=== PATIENT | female | born 1930 | race Caucasian/White ===

== ENCOUNTER 2016-08-24 07:12 | Observation (INO) | payer OTHER ==
[~2016-08-24] VITALS: Ht 167.6 cm; Wt 49.9 kg
[~2016-08-24 07:12] MED LIST: ACETAMINOPHEN-COD #3; ALBUTEROL0.09 MG/A1 INH; AMITRIPTYLINE H10 M2 PO; AMITRIPTYLINE H10 MG PO; AMOXICILLIN500 M1 PO; AMOXICILLIN500 MG PO; ARMOUR THYROID15 M1 PO; ARMOUR THYROID60 MG PO; ASPIRIN325 M2 PO; Aspirin PO; BISMUTH SUBSALICYLATE PO; CYCLOBENZAPRINE5 M1; CYMBALTA 20 MG20 MG PO; DILTIAZEM 24HR180 M1 PO; EDARBI40 MG PO; FIORICET 50-301 EACH PO; FLEXERIL 5MG TAB5 MG PO; FLORINEF ACETA0.1 MG PO; FLOVENT DISKU100 MCG INH; HYDROCODONE/ACE1 TA1 PO; LIPITOR40 M1 PO; LISINOPRIL2.5 MG PO; MAGNESIUM OXID400 M1 PO; METOCLOPRAMIDE10 MG PO; METOCLOPRAMIDE5 MG PO; MIRALAX17 G1 PO; MOTRIN 600 MG600 MG PO; OMEPRAZOLE20 MG PO; PEPCID 20MG TAB20 MG PO; PREDNISONE10 MG PO; PRILOSEC 20MG C20 MG PO; PROAIR HFA0.09 MG/Ac INH; SENNA S TABLET1 EACH PO; SENOKOT8.6 MG; TORADOL10 MG PO; TRAMADOL HCL50 M1 PO; TRAMADOL50 MG PO; TYLENOL #31 TAB PO; TYLENOL325 M1 PO; VICODIN 5-3001 EACH PO; VICODIN5-300 PO; VITAMIN D5000 I1 PO; VITAMIN D5000 UNIT PO
[2016-08-24] MEDS ORDERED: AMITRIPTYLINE H10 M2 PO (08:00)
[2016-08-24] MEDS ORDERED: SEROQUEL100 M1 PO (08:05)
[2016-08-24] MEDS ORDERED: ASPIRIN EC325 M2 PO (08:07)
[2016-08-24 08:30] LABS: ABSOLUTE BASOPHIL COUNT 0 /CUMM (0.0-0.2); ABSOLUTE EOSINOPHIL COUNT 0.1 /CUMM (0.0-0.7); ABSOLUTE GRANULOCYTE CT 6.9 /CUMM (1.4-6.5); ABSOLUTE MONOCYTE COUNT 0.9 /CUMM (0.10-0.60); BASOPHIL % 0.2 % (0.0-2.0); EOSINOPHIL % 0.8 % (0-5); GRANULOCYTE % 77.8 % (42.2-75.2); HEMATOCRIT 40.7 % (37-47); MEAN CORPUSCULAR VOLUME 85.4 FL (81.0-99.0); MEAN PLATELET VOLUME 7.2 FL (7.4-10.4); PLATELET COUNT 241 /CUMM (130-400); RBC DISTRIBUTION WIDTH 13.1 % (11.5-14.5); RED BLOOD CELL CT 4.77 /CUMM (4.20-5.40); WHITE BLOOD CELL COUNT 8.8 /CUMM (4.8-10.8)
--- NOTE | 2016-08-24 10:05 | CT SCAN REPORT ---
EXAMINATION: CT HEAD WITHOUT CONTRAST CT OF THE MAXILLOFACIAL REGION CLINICAL INFORMATION: Fall. Head strike right zygoma/cheek with confusion. Assess for intracranial hemorrhage or fracture. COMPARISON: CT scan of the head 01/24/2016. TECHNIQUE: Multidetector CT imaging of the head and maxillofacial region was performed without the use of intravenous contrast. Coronal and sagittal reformatted images were generated at the technologist workstation. Images are degraded by patient motion artifact and some areas. DLP: 1192.28 mGy-cm. FINDINGS: CT Head: There is no evidence of acute intracranial hemorrhage or territorial infarction. No abnormal mass-effect or midline shift is seen. Vega to white matter differentiation is well preserved. No extra-axial fluid collections are identified. The ventricles and sulci are commensurately prominent consistent with moderate diffuse volume loss, similar compared to the prior study. There is low attenuation in the periventricular and subcortical white matter, consistent with chronic microvascular ischemic changes. 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 The study redemonstrates the partially calcified mass along the left falx at the vertex, which is unchanged. There are no acute osseous findings. There are degenerative changes of the right greater than left temporomandibular joints. There are no large scalp contusions or hematomas. There is extensive atheromatous calcification of the bilateral cavernous internal carotid arteries. The mastoid air cells are well-aerated. There is mucoperiosteal thickening in the bilateral ethmoid and frontal sinuses and there is a retention cyst in the right maxillary sinus. CT Maxillofacial Region: No fractures are demonstrated. The nasal bones, maxillary zhao, pterygoid plates and zygomatic arches are intact; there are no air-fluid levels in the maxillary sinuses. The orbits, globes, and the lamina papyracea are intact. The orbital apices, optic canals, and retrobulbar fat planes are normal. The mandible is intact. There are degenerative changes of the right greater than left temporomandibular joints. There is no significant soft tissue swelling in the malar regions. The nasal septum is slightly deviated to the right posteriorly and there is a right-sided bony nasal septal spur. There are degenerative changes in the visualized cervical spine. IMPRESSION: 1. There are no acute intracranial bleeds or territorial infarcts. 2. 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 3. There are no fractures in the maxillofacial region. There are right greater than left degenerative changes of the temporomandibular joints.
--- NOTE | 2016-08-24 10:36 | ED MVC/FALL/TRAUMA COMPLAINT ---
History of Present Illness General Chief Complaint: Fall Stated Complaint: FALL/LOW L SIDE BACK Source: patient, family, old records, EMS Exam Limitations: dementia, poor historian Vital Signs & Intake/Output Vital Signs & Intake/Output Vital Signs Date Time Temp Pulse Resp B/P Pulse O2 O2 Flow FiO2 Ox Delivery Rate 08/24 1405 97 Room Air 08/24 1404 97.1 108 18 159/78 97 Room Air 08/24 1005 97.1 86 18 172/77 99 Room Air 08/24 0732 97 Room Air 08/24 0724 97.4 76 18 180/98 98 Room Air Allergies Coded Allergies: duloxetine (From CYMBALTA) (Severe, RASH 10/15/15) Benzodiazepines (UNKNOWN PER PT 10/15/15) clarithromycin (From BIAXIN) (UNKNOWN PER PT 10/15/15) lisinopril (UNKNOWN PER PT 10/15/15) meperidine (From DEMEROL) (UNKNOWN PER PT 10/15/15) verapamil (UNKNOWN PER PT 10/15/15) Uncoded Allergies: OPIOD (Severe, N/V, DIZZINESS 10/15/15) "SEDATIVES" (UNKNOWN PER PT 10/15/15) Reconcile Medications Acetaminophen (Tylenol) 325 MG TABLET 1 TAB PO Q6H PRN H/A OR TEMP 100.5> ( Reported) Amitriptyline HCl 10 MG TABLET 1 TAB PO QHS MIGRAINE (Reported) Amitriptyline HCl 10 MG TABLET 2 TAB PO QPM HEADACHE (Reported) Aspirin (Aspirin*) 325 MG TABLET 1 TAB PO DAILY BLOOD-STROKE PREVENTION ( Reported) Aspirin (Ecotrin*) 325 MG TABLET.DR 1 TAB PO DAILY STROKE (Reported) Atorvastatin Calcium (Lipitor) 40 MG TABLET 1 TAB PO QHS CHOLESTEROL ( Reported) Butalb/Acetaminophen/Caffeine (Fioricet 50-300-40 MG Capsule) 1 EACH CAPSULE 1 TAB PO Q6P PRN headache Cholecalciferol (Vitamin D3) (Vitamin D) 5,000 UNIT TABLET 1 TAB PO QHS SUPPLEMENT (Reported) Diltiazem HCl (Diltiazem 24HR Cd) 180 MG CAP.ER.24H 1 CAP PO DAILY HEART/BP ( Reported) Fluticasone Propionate (Flovent Diskus) 100 MCG BLST.W.DEV 1 PUF INH BID COPD (Reported) Hydrocodone/Acetaminophen (Vicodin 5-300 MG Tablet) 1 EACH TABLET 1 TAB PO QHS CHRONIC PAIN (Reported) Magnesium Oxide 400 MG TABLET 1 TAB PO QHS SUPPLEMENT (Reported) Polyethylene Glycol 3350 (Miralax) 17 GM POWD.PACK 1 PAC PO DAILY PRN GI ( Reported) dissolve in water Quetiapine Fumarate (Seroquel) 100 MG TABLET 1 TAB PO QPM HALLUCINATIONS ( Reported) Sennosides/Docusate Sodium (Senna S Tablet) 1 EACH TABLET 2 TAB PO QHS GI ( Reported) Thyroid ([place] Thyroid) 15 MG TABLET 1 TAB PO DAILY THYROID (Reported) Tramadol HCl 50 MG TABLET 1 TAB PO QAM CHRONIC PAIN (Reported) Triage Note: 85 YEAR OLD FEMALE TO ER VIA AMBULANCE FROM [facility],PER EMS THEY WERE CALLED THERE DUE TO PT FELL ON THE FLOOR,PER DAUGHTER PT IS A RESIDENT OF THE UNIT FOR DEMENTIA PATIENTS, PT STATES THAT SHE WENT TO GET OUT OF BED AND THE NEXT THING SHE KNEW SHE WAS ON THE FLOOR, PT COMPLAINS OF L SIDE LOW BACK AND HAS DIFFICULT TIME MOVING DUE TO 10/10 PAIN. PT ALSO NOTED WITH RUG BURN TO R SIDE OF FACE.PT STATES THAT SHE HAD A HEADACHE LAST PM AND THE NURSE GAVE HER AN ASPIRIN, PT NOTED WITH FULL ROM WITH ALL EXTREMITIES BUT UNABLE TO TURN WITH OUT PAIN. DENIES HIP PAIN ON LIGHT PALPATION BILATERALLY, SPEECH CLEAR AND NO FACIAL DROOP NOTED. PT INCONTINENT OF URINE, INCONTINENT CARE PROVIDED Triage Nurses Notes Reviewed? yes Onset: Just prior to arrival Duration: hour(s):, constant, continues in ED Timing: recent history Severity: moderate Injuries/Fall Location: face, back, pelvis Method of Injury: direct blow, fall Loss of Consciousness: unsure Modifying Factors: Improves With: rest. Worsens With: movement, palpation. Associated Symptoms: confusion, trouble walking LMP (ages 10-50): post menopausal : No Patient currently breastfeeds: No HPI: Prior to admission patient was found in the floor by staff. The events are unclear recalls getting out of bed falling to the ground striking her face likely loss consciousness. She complains of left low back pain sharp severe limited range of motion. She denies fever chills chest pain cough shortness of breath headache dysuria rash bleeding abdominal pain. Past History Travel History Traveled to [place] past 21 day No Medical History Any Pertinent Medical History? 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 Relation not specified for: FH: bladder cancer FH: breast cancer Hx Contributory? No Review of Systems Review of Systems Constitutional: Reports: no symptoms. Eyes: Reports: no symptoms. Ears, Nose, Throat, Mouth: Reports: no symptoms. Respiratory: Reports: no symptoms. Cardiovascular: Reports: no symptoms. Gastrointestinal/Abdominal: Reports: no symptoms. Genitourinary: Reports: no symptoms. Musculoskeletal: Reports: see HPI, back pain, joint pain. Skin: Reports: see HPI. Neurological/Psychological: Reports: see HPI, cognitive dysfunction. All Other Systems: Reviewed and Negative Physical Exam Physical Exam General Appearance: well developed/nourished, alert, awake, anxious, moderate distress Head: evidence of injury (right cheek/zygoma abrasion), contusions, tenderness Eyes: Bilateral: normal appearance, PERRL, EOMI, normal inspection. Ears, Nose, Throat, Mouth: hearing grossly normal, moist mucous membrane Neck: normal inspection, supple, full range of motion, normal alignment, no midline tenderness Respiratory: normal breath sounds, chest non-tender, no respiratory distress, quiet respiration, lungs clear Cardiovascular: regular rate/rhythm, normal peripheral pulses, norml femoral pulses equa Peripheral Pulses: 4+ carotid (R), 4+ carotid (L) Gastrointestinal: normal bowel sounds, soft, non-tender, no organomegaly Back: normal inspection, decreased range of motion Extremities: bony-point tenderness (L pelvis), no ligament instability Neurologic/Psych: awake, alert, normal mood/affect, 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 No Severe Sepsis Present: No Septic Shock Present: No Progress Differential Diagnosis: C/T/L spine injury, ext injury, pelvis injury Plan of Care: Orders Procedure Date/time Status Regular Diet 08/24 L Active PT Evaluate & Treat 08/24 1324 Active Mello, Insertion/Removal/Asses 08/24 1324 Active CULTURE,URINE 08/24 1324 Active TROPONIN LEVEL 08/24 804 Complete COMPREHENSIVE METABOLIC PANEL 08/24 804 Complete CREATINE PHOSPHOKINASE 08/24 804 Complete CBC WITHOUT DIFFERENTIAL 08/24 804 Complete EKG 08/24 804 Active Laboratory Tests 08/24/16 0821: Anion Gap 9, Estimated GFR > 60, BUN/Creatinine Ratio 28.0 H, Glucose 96, Calcium 9.4, Total Bilirubin 0.6, AST 27, ALT 44, Alkaline Phosphatase 145 H, Creatine Kinase 68, Troponin I < 0.01, Total Protein 7.4, Albumin 3.9, Globulin 3.5, Albumin/Globulin Ratio 1.1, CBC w Diff NO MAN DIFF REQ, RBC 4.77, MCV 85.4, MCH 29.0, RDW 13.1, MPV 7.2 L, Gran % 77.8 H, Lymphocytes % 11.1 L, Monocytes % 10.1 H, Eosinophils % 0.8, Basophils % 0.2, Absolute Granulocytes 6.9 H, Absolute Lymphocytes 1.0 L, Absolute Monocytes 0.9 H, Absolute Eosinophils 0.1 , Absolute Basophils 0, PUBS MCHC 34.0 Microbiology 08/24 1447 URINE ROUT: Urine Culture - RECD Diagnostic Imaging: Viewed by Me: CT Scan. Discussed w/RAD: CT Scan. Radiology Impression: 1. Inferior endplate fracture of L3 with approximately 25 % loss of height centrally. 2. Mildly displaced fractures of the left superior and inferior pubic rami. 3. Essentially nondisplaced fracture of the upper left sacrum. 4. No additional acute traumatic findings identified in the chest, abdomen, or pelvis. 5. Interval decrease in tiny tree-in-bud type right lung nodules compared to 07/30/2015. Comments: Unable to ambulate or get out of bed due to back and hip pain Departure Departure Time of Disposition: 1544 Disposition: STILL A PATIENT Condition: Stable Clinical Impression Primary Impression: Closed fracture of pubic ramus Qualifiers: Encounter type: initial encounter Laterality: left Qualified Code: S32.592A - Other specified fracture of left pubis, initial encounter for closed fracture Secondary Impressions: Fracture of sacrum Qualifiers: Encounter type: initial encounter Zone of sacrum fracture: unspecified portion of sacrum Fracture type: closed Qualified Code: S32.10XA - Unspecified fracture of sacrum, initial encounter for closed fracture Lumbar compression fracture Qualifiers: Encounter type: initial encounter Fracture type: closed Qualified Code: S32.000A - Wedge compression fracture of unspecified lumbar vertebra, initial encounter for closed fracture Referrals: PAPA BHAGAT,KELI Anand (PCP/Family) Departure Forms: Customer Survey General Discharge Information Observation Note Spoke With: ABE BHAGAT,AIDA Physician Advisor Notified: INES BHAGAT,ELLA Rivera Place Patient In: Non-ED OBS Care Area Rationale for Observation: My rational for observation is as follows ensure safety physical therapy IV analgesia increased ambulation.
--- NOTE | 2016-08-24 13:01 | CT SCAN REPORT ---
EXAM: NONCONTRAST CT OF THE CHEST; NONCONTRAST CT OF THE ABDOMEN AND PELVIS, CT 3-D RECONSTRUCTION POST PROCEDURE INDICATION: Fall, back pain, abdominal injury COMPARISON: Multiple priors, most recent chest CT 07/30/2015 TECHNIQUE: No IV contrast was utilized. Multidetector helical imaging was performed through the chest, abdomen, and pelvis. Coronal and sagittal reformatted images were created at the technologist workstation. Additional dedicated 3-D reformatted volume rendered images of the osseous structures of the chest, abdomen, and pelvis were created. DLP: 354.30 mGy-cm FINDINGS: Chest: Biapical scarring is noted. No additional region of consolidation is seen. There has been interval decrease in the tiny tree-in-bud type nodular opacities in the right lower lobe compared to 07/30/2015. Several scattered tiny residual nodules are noted, suspicious for endobronchial location. No pneumothorax or pleural effusions. The visualized thyroid gland is unremarkable. There are subcentimeter mediastinal lymph nodes within the range of normal variation. Cardiac size is within normal limits; no pericardial effusion. Coronary artery calcifications are present. There is atherosclerotic calcification along the aorta. No axillary lymphadenopathy is present. Abdomen/Pelvis: The liver is homogeneous in attenuation without intrahepatic biliary ductal dilatation. The gallbladder is unremarkable. The unenhanced spleen, pancreas, and adrenal glands are within normal limits. There is fullness of extrarenal pelvises bilaterally. No renal or ureteral calculi are present. The urinary bladder is distended and otherwise appears unremarkable. Patient appears status post hysterectomy. The small and large bowel are unremarkable without evidence of obstruction or pericolonic inflammatory change. No free fluid or free air is present. There is extensive atherosclerotic calcification. No retroperitoneal or pelvic lymphadenopathy is seen. Osseous structures: There is an essentially nondisplaced fracture of the upper left sacrum. There are mildly displaced fractures of the left superior and inferior pubic rami with mild adjacent hematoma. There is a fracture of the inferior endplate of L3 resulting in approximately 25% loss of vertebral body height centrally. There is anatomic alignment of the thoracolumbar spine. Remaining vertebral body heights are maintained. Multilevel degenerative changes are noted. IMPRESSION: 1. Inferior endplate fracture of L3 with approximately 25% loss of height centrally. 2. Mildly displaced fractures of the left superior and inferior pubic rami. 3. Essentially nondisplaced fracture of the upper left sacrum. 4. No additional acute traumatic findings identified in the chest, abdomen, or pelvis. 5. Interval decrease in tiny tree-in-bud type right lung nodules compared to 07/30/2015.
[2016-08-24 18:00] VITALS: BP 160/82
[2016-08-24] MEDS ORDERED: QUETIAPINE FUMA50 M1 PO (18:50)
--- NOTE | 2016-08-24 18:50 | History & Physical ---
JAJA BHAGAT,[facility] 08/24/16 1320: General Information and HPI MD Statement: I have seen and personally examined HENNA GONZALEZ and documented this H&P. The patient is a 85 year old F who presented with a patient stated chief complaint of unwitbessed fall. Source of Information: patient, family Exam Limitations: no limitations History of Present Illness: This 85-year-old lady with a past medical history of CVA (2016) with no residual deficits, hypertension, SVT, anxiety, hypothyroidism, hemangioma the brain, fibromyalgia, is BIBA for evaluation after she was found on the floor by the nursing staff. of note, patient lives at [facility]. She is not able to give the exact time of her fall, but she reports that it was still dark when she woke up from sleep and attempted to get of bed in order to go to the bathroom. She reports falling down while attempting to get out of bed and fell on her face. She was found on the floor at around 7 AM by the nursing staff. Patient reports that she never lost consciousness and throughout the episode she was thinking to herself and realizing that she'll have to wait till help comes and she decided not to screem for help. She denies any loss of consciousness, palpitation or any prodromal syndrome, she denies any seizure- like activities, vertigo, tinnitus, headache, numbness, any neurological deficit , or confusion. She also denies any recent infection, fever, chills, nausea, vomiting, chest pain, palpitation, shortness of breath, abdominal pain or dysuria. Of note, patient at her normal state of health free ambulates and is independent with her ADLs. Allergies/Medications Allergies: Coded Allergies: duloxetine (From CYMBALTA) (Severe, RASH 10/15/15) Benzodiazepines (UNKNOWN PER PT 10/15/15) clarithromycin (From BIAXIN) (UNKNOWN PER PT 10/15/15) lisinopril (UNKNOWN PER PT 10/15/15) meperidine (From DEMEROL) (UNKNOWN PER PT 10/15/15) verapamil (UNKNOWN PER PT 10/15/15) Uncoded Allergies: OPIOD (Severe, N/V, DIZZINESS 10/15/15) "SEDATIVES" (UNKNOWN PER PT 10/15/15) Past History Travel History Traveled to [place] past 21 day No Medical History Blood Transfusion Hx: Yes Neurological: vertigo, ATYPICAL MIGRAINE HEADACH MENINGIOMA LYME DISEASE STROKE 2015 EENT: NONE Cardiovascular: AFIB, hypertension, SVT Respiratory: COPD Gastrointestinal: H PYLORI Hepatic: NONE Renal: NONE Musculoskeletal: fibromyalgia, fracture, osteoarthritis, osteoporosis, SCOLIOSIS FX KNEE Psychiatric: anxiety Endocrine: hypothyroidism Blood Disorders: NONE Cancer(s): HEMANGIOMA OF THE 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 Relation not specified for: FH: bladder cancer FH: breast cancer Psychosocial History Who Do You Live With? grand tammi Services at Home: None Smoking Status: Never Smoked ETOH Use: denies use Illicit Drug Use: denies illicit drug use Functional Ability ADLs Independent: dressing, eating, toileting, bathing. Ambulation: independent IADLs Independent: shopping, housework, finances, food prep, telephone, transportation , medication admin. Review of Systems Review of Systems Constitutional: Denies: diaphoresis, fever, malaise. EENTM: Denies: double vision, visual changes. Cardiovascular: Denies: chest pain, edema, orthopena. Respiratory: Denies: cough, hemoptysis, orthopnea. GI: Denies: diarrhea, distention, bowel incontinence, melena, bloody stool. Genitourinary: Denies: frequency, hematuria. Musculoskeletal: Reports: muscle pain. Skin: Reports: lesions. Neurological/Psychological: Denies: ataxia, confusion, depressed, paresthesia, pre-existing deficit. Hematologic/Endocrine: Reports: bruising. Immunologic/Allergic: Reports: no symptoms. All Other Systems: Reviewed and Negative Exam & Diagnostic Data Physical Exam General Appearance Alert, Oriented X3, Cooperative Skin bruises on both sides of faces HEENT PERRLA, EOMI, Mucous Membr. moist/pink Neck Supple, No JVD Lymphatic Cervical nl Cardiovascular Regular Rate, Normal S1, Normal S2 Lungs Clear to Auscultation, Normal Air Movement Abdomen Normal Bowel Sounds, Soft, No Tenderness Neurological Normal Speech, Normal Tone, Sensation Intact, Cranial Nerves 3-12 NL, Reflexes 2+ Extremities No Clubbing, No Cyanosis, decreased range of motion,due to pain Vascular Pulses Symmetrical Last 24 Hrs of Labs/Edward: Laboratory Tests 08/24/16 0821: Anion Gap 9, Estimated GFR > 60, BUN/Creatinine Ratio 28.0 H, Glucose 96, Calcium 9.4, Magnesium 2.0, Total Bilirubin 0.6, AST 27, ALT 44, Alkaline Phosphatase 145 H, Creatine Kinase 68, Troponin I < 0.01, Total Protein 7.4, Albumin 3.9, Globulin 3.5, Albumin/Globulin Ratio 1.1, CBC w Diff NO MAN DIFF REQ, RBC 4.77, MCV 85.4, MCH 29.0, RDW 13.1, MPV 7.2 L, Gran % 77.8 H, Lymphocytes % 11.1 L, Monocytes % 10.1 H, Eosinophils % 0.8, Basophils % 0.2, Absolute Granulocytes 6.9 H, Absolute Lymphocytes 1.0 L, Absolute Monocytes 0.9 H, Absolute Eosinophils 0.1, Absolute Basophils 0, PUBS MCHC 34.0 Microbiology 08/24 1447 URINE ROUT: Urine Culture - RECD Diagnostic Data Other Results EXAM TYPE: CAT - CT 3D RECON REQ POST PROC; CT ABD & PELVIS W/O IV CONTRAS; CT CHEST WO IV CONTRAST EXAM: NONCONTRAST CT OF THE CHEST; NONCONTRAST CT OF THE ABDOMEN AND PELVIS, CT 3-D RECONSTRUCTION POST PROCEDURE INDICATION: Fall, back pain, abdominal injury COMPARISON: Multiple priors, most recent chest CT 07/30/2015 TECHNIQUE: No IV contrast was utilized. Multidetector helical imaging was performed through the chest, abdomen, and pelvis. Coronal and sagittal reformatted images were created at the technologist workstation. Additional dedicated 3-D reformatted volume rendered images of the osseous structures of the chest, abdomen, and pelvis were created. DLP: 354.30 mGy-cm FINDINGS: Chest: Biapical scarring is noted. No additional region of consolidation is seen. There has been interval decrease in the tiny tree-in-bud type nodular opacities in the right lower lobe compared to 07/30/2015. Several scattered tiny residual nodules are noted, suspicious for endobronchial location. No pneumothorax or pleural effusions. The visualized thyroid gland is unremarkable. There are subcentimeter mediastinal lymph nodes within the range of normal variation. Cardiac size is within normal limits; no pericardial effusion. Coronary artery calcifications are present. There is atherosclerotic calcification along the aorta. No axillary lymphadenopathy is present. Abdomen/Pelvis: The liver is homogeneous in attenuation without intrahepatic biliary ductal dilatation. The gallbladder is unremarkable. The unenhanced spleen, pancreas, and adrenal glands are within normal limits. There is fullness of extrarenal pelvises bilaterally. No renal or ureteral calculi are present. The urinary bladder is distended and otherwise appears unremarkable. Patient appears status post hysterectomy. The small and large bowel are unremarkable without evidence of obstruction or pericolonic inflammatory change. No free fluid or free air is present. There is extensive atherosclerotic calcification. No retroperitoneal or pelvic lymphadenopathy is seen. Osseous structures: There is an essentially nondisplaced fracture of the upper left sacrum. There are mildly displaced fractures of the left superior and inferior pubic rami with mild adjacent hematoma. There is a fracture of the inferior endplate of L3 resulting in approximately 25% loss of vertebral body height centrally. There is anatomic alignment of the thoracolumbar spine. Remaining vertebral body heights are maintained. Multilevel degenerative changes are noted. IMPRESSION: 1. Inferior endplate fracture of L3 with approximately 25% loss of height centrally. 2. Mildly displaced fractures of the left superior and inferior pubic rami. 3. Essentially nondisplaced fracture of the upper left sacrum. 4. No additional acute traumatic findings identified in the chest, abdomen, or pelvis. 5. Interval decrease in tiny tree-in-bud type right lung nodules compared to 07/30/2015. DICTATED BY: NKECHI VELAZQUEZ MD Assessment/Plan Assessment: This is a 85-year-old lady with a significant history of CVA, hypertension, SVT fibromyalgia, hypertension for evaluation of a unwitnessed fall. Based on the patients account she did not experience any syncope. CT findings are unremarkable for any acute intracranial pathology. Mildly displaced fractures of the left superior and inferior pubic rami is evident on pelvis CT. Assessment and plan #Unwitnessed fall Most likely mechanical fall which is supported by the fact that patient tried to ambulate from her bed to the bathroom while he was still dark and she probably was not able to see the floor. It is less likely to have been of cardiac etiology, as patient denies any syncope or presyncope, and did not have any palpitation or other symptoms that are related with cardiac etiology. CT of the head is unremarkable for any intracranial pathology and patient does not endorse any neurological deficit including speech impairment therefore stroke is less likely. She also does not endorse any seizure-like activities, postictal confusion, or bladder or urinary incontinence, therefore seizures as the cause of her fall is also less likely. Plan Admit to general med Will obtain CPK levels Fall precautions #Pelvic fracture Patient has radiological finding of mildly dispensed fracture of the left superior and inferior public rami, and nondisplaced fractures of the upper left sacrum. This findings are consistent with low energy stable fracture. She history of osteoporosis predisposed her to increase likelihood of fractures especially to falls. Surgical intervention is not warranted in this type of fractures. Plan Medical management of symptomatic relief with pain medication (acetaminophen for mild pain and tramadol for moderate pain) Will obtain PT eval tomorrow #DVT Due to the fracture patient will be at increased risk for DVT due to decrease mobility. Lovenox for DVT prophylaxis As Ranked By This Provider Problem List: 1. Closed fracture of pubic ramus Qualifiers Encounter type: initial encounter Laterality: left Qualified Code: S32.592A - Other specified fracture of left pubis, initial encounter for closed fracture 2. Fall at home Core Measures/Miscellaneous Severe Sepsis Severe Sepsis Present: No Septic Shock Septic Shock Present: No AIDA FISH MD 08/24/16 2006: General Information and HPI Allergies/Medications Home Med list Acetaminophen (Tylenol) 325 MG TABLET 1 TAB PO Q6H PRN H/A OR TEMP 100.5> ( Reported) Amitriptyline HCl 10 MG TABLET 2 TAB PO QPM HEADACHE (Reported) Aspirin (Ecotrin*) 325 MG TABLET.DR 1 TAB PO DAILY STROKE (Reported) Cholecalciferol (Vitamin D3) (Vitamin D) 5,000 UNIT TABLET 1 TAB PO QHS SUPPLEMENT (Reported) Diltiazem HCl (Diltiazem 24HR Cd) 180 MG CAP.ER.24H 1 CAP PO DAILY HEART/BP ( Reported) Fluticasone Propionate (Flovent Diskus) 100 MCG BLST.W.DEV 1 PUF INH BID COPD (Reported) Magnesium Oxide 400 MG TABLET 1 TAB PO QHS SUPPLEMENT (Reported) Polyethylene Glycol 3350 (Miralax) 17 GM POWD.PACK 1 PAC PO DAILY PRN GI ( Reported) dissolve in water Quetiapine Fumarate 50 MG TABLET 1 TAB PO BID DEPRESSION (Reported) Sennosides/Docusate Sodium (Senna S Tablet) 1 EACH TABLET 2 TAB PO QHS GI ( Reported) Thyroid ([employer] Thyroid) 15 MG TABLET 1 TAB PO DAILY THYROID (Reported) Tramadol HCl 50 MG TABLET 1 TAB PO QAM CHRONIC PAIN (Reported) Attending MD Review Statement Attending Statement Attending MD Statement: examined this patient, discuss w/resident/PA/OFFENSIVE COORDINATOR, agreed w/resident/PA/OFFENSIVE COORDINATOR, reviewed EMR data (avail) Attending Assessment/Plan: 85F PMH HTN, SVT, CVA with no residual, dementia sent from SNF after falling out of bed and complaining of hip and back pain. Patient has no complaints but unable to give proper history. Fall was unwitnessed, but reported no loss of consciousness. Imaging shows multiple fractures including pubic rami, sacrum, and L3. No neurological dysfunction. Patient reports pain in the area. Plan - Admit to general medicine - Orthopedic consult - Pain control with Tylenol, Tramadol, Morphine - Repeat neuro exam in the morning - PT eval - Continue home medications, avoid sedating medications - DVT PPx ISREAL BARBA 08/24/162026: Exam & Diagnostic Data Last 24 Hrs of Vital Signs/I&O Vital Signs Date Time Temp Pulse Resp B/P Pulse O2 O2 Flow FiO2 Ox Delivery Rate 08/25 0838 98.6 91 18 148/82 95 08/25 0032 98.4 106 20 142/58 94 Room Air 08/24 1944 Room Air 08/24 1800 98.6 92 20 160/82 96 Room Air 08/24 1606 98.2 110 20 169/90 98 Room Air 08/24 1405 97 Room Air 08/24 1404 97.1 108 18 159/78 97 Room Air Intake & Output 08/25 1600 08 0800 02 0000 Intake Total 1090 240 Output Total 225 100 Balance 865 140 Intake, IV 850 Intake, Oral 240 240 Number 0 Bowel Movements Output, Urine 225 100 Patient 110 lb Weight Core Measures/Miscellaneous Acute Coronary Syndrome ACS Diagnosis: No Cerebrovascular Accident CVA/TIA Diagnosis: No Congestive Heart Failure CHF Diagnosis: No Venous Thromboembolism VTE Risk Factors: Acute medical illness, Age > 40 VTE Prophylaxis Ordered Inpt: Pharm- Lovenox No Mech VTE prophylaxis d/t: No contraindications No VTE Pharm Prophylaxis d/t: No contraindications VTE Diagnosis: No VTE Type: NONE VTE Confirmed by (Test): NONE Miscellaneous Documentation Attending Case Discussed With: DR. FISH Primary Care Physician: KELI ELAM MD Patient sees these Specialists Dr. Soler Level of Patient Care: General Medicine Resident Review Statement Resident Statement: discussed with purchasing intern Other Findings: HPI as above Assessment and plan She is 85-year-old woman with past medical history of A. fib not on any anticoagulation, hypertension, multinodular goiter, hypothyroidism, SVTs, diastolic CHF, CVA, migraine, osteoporosis, Lyme disease, Alzheimer's disease, expressive aphasia, chronic back pain and fibromyalgia BIBA from [facility] memory care unit after she was found on the floor by staff. Problem list 1. Unwitnessed fall resulting in inferior endplate fracture of L3 and mildly displaced fracture of left superior and inferior pubic rami, nondisplaced fracture of upper left sacrum. She does not recall any preceding symptoms before fall. Plan - Admit patient to general medicine floor - Monitor vitals every shift - Pain management with Tylenol and tramadol which are her home medications - We will continue other home medications - PT evaluation and treatment - Subcutaneous Lovenox for DVT prophylaxis - DNR/DNI
--- NOTE | 2016-08-24 20:09 | Admission Certification ---
Admission Certification Certification Statement - As attending physician, I certify that at the time of - admission, based on clinical presentation, severity of - symptoms, need for further diagnostic testing and - therapeutic interventions, and risk of adverse outcomes - without in-hospital treatment, in my clinical assessment, - this patient requires an acute hospital stay for a minimum - of two nights or longer. I have also considered psychsocial - factors such as support system, advanced age, financial - issues, cognitive issues, and failed out-patient treatments, - past re-admission history, safety of patient, and lack of - compliance as applicable. Specific rationale supporting this admission is: Fall with pelvis and sacral fracture
[2016-08-25 00:32] VITALS: BP 142/58
[2016-08-25 08:10] LABS: ABSOLUTE BASOPHIL COUNT 0 /CUMM (0.0-0.2); ABSOLUTE EOSINOPHIL COUNT 0.2 /CUMM (0.0-0.7); ABSOLUTE GRANULOCYTE CT 5.4 /CUMM (1.4-6.5); ABSOLUTE MONOCYTE COUNT 1.1 /CUMM (0.10-0.60); BASOPHIL % 0.4 % (0.0-2.0); EOSINOPHIL % 2.1 % (0-5); GRANULOCYTE % 70.2 % (42.2-75.2); HEMATOCRIT 37.2 % (37-47); MEAN CORPUSCULAR HGB 29.2 PG (27.0-31.0); MEAN CORPUSCULAR VOLUME 85.9 FL (81.0-99.0); MEAN PLATELET VOLUME 7.6 FL (7.4-10.4); PLATELET COUNT 204 /CUMM (130-400); RBC DISTRIBUTION WIDTH 13.5 % (11.5-14.5); RED BLOOD CELL CT 4.33 /CUMM (4.20-5.40); WHITE BLOOD CELL COUNT 7.8 /CUMM (4.8-10.8)
[2016-08-25 08:38] VITALS: BP 148/82
--- NOTE | 2016-08-25 11:40 | Discharge Summary ---
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 She reported falling down while attempting to get out of bed and fell on her face. She was found on the floor at around 7 AM by the nursing staff. Patient reports that she did not what happened. She denied any loss of consciousness, palpitation or any prodromal syndrome, she denied any seizure-like activities, vertigo, tinnitus, headache, numbness, any neurological deficit, or confusion. She also denied any recent infection, fever, chills, nausea, vomiting, chest pain, palpitation, shortness of breath, abdominal pain or dysuria. Vital Signs Date Time Temp Pulse Resp B/P Pulse O2 O2 Flow FiO2 Ox Delivery Rate 08/25 0838 98.6 91 18 148/82 95 08/25 0032 98.4 106 20 142/58 94 Room Air 08/24 1944 Room Air 08/24 1800 98.6 92 20 160/82 96 Room Air 08/24 1606 98.2 110 20 169/90 98 Room Air 08/24 1405 97 Room Air 08/24 1404 97.1 108 18 159/78 97 Room Air Physical Exam General Appearance Alert, Oriented X3, Cooperative Skin bruises on both sides of faces HEENT PERRLA, EOMI, Mucous Membr. moist/pink Neck Supple, No JVD Lymphatic Cervical nl Cardiovascular Regular Rate, Normal S1, Normal S2 Lungs Clear to Auscultation, Normal Air Movement Abdomen Normal Bowel Sounds, Soft, No Tenderness Neurological Normal Speech, Normal Tone, Sensation Intact, Cranial Nerves 3-12 NL, Reflexes 2+ Extremities No Clubbing, No Cyanosis, decreased range of motion,due to pain Vascular Pulses Symmetrical Last 24 Hrs of Labs/Edward: Laboratory Tests 08/24/16 0821: Anion Gap 9, Estimated GFR > 60, BUN/Creatinine Ratio 28.0 H, Glucose 96, Calcium 9.4, Magnesium 2.0, Total Bilirubin 0.6, AST 27, ALT 44, Alkaline Phosphatase 145 H, Creatine Kinase 68, Troponin I < 0.01, Total Protein 7.4, Albumin 3.9, Globulin 3.5, Albumin/Globulin Ratio 1.1, CBC w Diff NO MAN DIFF REQ, RBC 4.77, MCV 85.4, MCH 29.0, RDW 13.1, MPV 7.2 L, Gran % 77.8 H, Lymphocytes % 11.1 L, Monocytes % 10.1 H, Eosinophils % 0.8, Basophils % 0.2, Absolute Granulocytes 6.9 H, Absolute Lymphocytes 1.0 L, Absolute Monocytes 0.9 H, Absolute Eosinophils 0.1, Absolute Basophils 0, PUBS MCHC 34.0 Microbiology 08/24 1447 URINE ROUT: Urine Culture - RECD Diagnostic Data Other Results EXAM TYPE: CAT - CT 3D RECON REQ POST PROC; CT ABD & PELVIS W/O IV CONTRAS; CT CHEST WO IV CONTRAST EXAM: NONCONTRAST CT OF THE CHEST; NONCONTRAST CT OF THE ABDOMEN AND PELVIS, CT 3-D RECONSTRUCTION POST PROCEDURE INDICATION: Fall, back pain, abdominal injury COMPARISON: Multiple priors, most recent chest CT 07/30/2015 TECHNIQUE: No IV contrast was utilized. Multidetector helical imaging was performed through the chest, abdomen, and pelvis. Coronal and sagittal reformatted images were created at the technologist workstation. Additional dedicated 3-D reformatted volume rendered images of the osseous structures of the chest, abdomen, and pelvis were created. DLP: 354.30 mGy-cm FINDINGS: Chest: Biapical scarring is noted. No additional region of consolidation is seen. There has been interval decrease in the tiny tree-in-bud type nodular opacities in the right lower lobe compared to 07/30/2015. Several scattered tiny residual nodules are noted, suspicious for endobronchial location. No pneumothorax or pleural effusions. The visualized thyroid gland is unremarkable. There are subcentimeter mediastinal lymph nodes within the range of normal variation. Cardiac size is within normal limits; no pericardial effusion. Coronary artery calcifications are present. There is atherosclerotic calcification along the aorta. No axillary lymphadenopathy is present. Abdomen/Pelvis: The liver is homogeneous in attenuation without intrahepatic biliary ductal dilatation. The gallbladder is unremarkable. The unenhanced spleen, pancreas, and adrenal glands are within normal limits. There is fullness of extrarenal pelvises bilaterally. No renal or ureteral calculi are present. The urinary bladder is distended and otherwise appears unremarkable. Patient appears status post hysterectomy. The small and large bowel are unremarkable without evidence of obstruction or pericolonic inflammatory change. No free fluid or free air is present. There is extensive atherosclerotic calcification. No retroperitoneal or pelvic lymphadenopathy is seen. Osseous structures: There is an essentially nondisplaced fracture of the upper left sacrum. There are mildly displaced fractures of the left superior and inferior pubic rami with mild adjacent hematoma. There is a fracture of the inferior endplate of L3 resulting in approximately 25% loss of vertebral body height centrally. There is anatomic alignment of the thoracolumbar spine. Remaining vertebral body heights are maintained. Multilevel degenerative changes are noted. IMPRESSION: 1. Inferior endplate fracture of L3 with approximately 25% loss of height centrally. 2. Mildly displaced fractures of the left superior and inferior pubic rami. 3. Essentially nondisplaced fracture of the upper left sacrum. 4. No additional acute traumatic findings identified in the chest, abdomen, or pelvis. 5. Interval decrease in tiny tree-in-bud type right lung nodules compared to 07/30/2015. DICTATED BY: NKECHI VELAZQUEZ MD she was admitted to [facility] and treated for these medical condtions: Assessment and plan #Unwitnessed fall Most likely mechanical fall. CT of the head is unremarkable for any intracranial pathology.Echocardgioram showed moderately EF with elevated RV pressure. VQ scan recommended per pulmonology, showed low probability of PE . EKG did not show any major arrthymia. Vital signs were stable. Patient was medically stable to discharge to [facility]. She should follow-up with pulmonology within 2 weeks after discharge. #Pelvic fracture Patient has radiological finding of mildly dispensed fracture of the left superior and inferior public rami, and nondisplaced fractures of the upper left sacrum. Orthopedic consultations recommended conservative management. #History of SVT We continued Cardizem. No major events are observed #hx of hypothyroidism we continued levothyroxine. No major events were observed. Allergies: Coded Allergies: duloxetine (From CYMBALTA) (Severe, RASH 10/15/15) Benzodiazepines (UNKNOWN PER PT 10/15/15) clarithromycin (From BIAXIN) (UNKNOWN PER PT 10/15/15) lisinopril (UNKNOWN PER PT 10/15/15) meperidine (From DEMEROL) (UNKNOWN PER PT 10/15/15) verapamil (UNKNOWN PER PT 10/15/15) Uncoded Allergies: OPIOD (Severe, N/V, DIZZINESS 10/15/15) "SEDATIVES" (UNKNOWN PER PT 10/15/15) Pertinent Lab Results: PATIENT: MARIELA MOTA PRESENT AGE: 89 PATIENT ACCOUNT NO: [id number] : [birth year] LOCATION: ER ORDERING PHYSICIAN: RAFAT WINTERS MD SERVICE DATE: 08/24/16 EXAM TYPE: RAD - XRY-HIP 2-3 VIEWS, RIGHT EXAMINATION: XR HIP, RIGHT CLINICAL INFORMATION: Fall with right hip pain. Presumptive diagnosis: Fracture. COMPARISON: CT of the abdomen and pelvis 11/01/2015. TECHNIQUE: AP view of the pelvis is obtained. AP and frog lateral views of the right hip are obtained. FINDINGS: There is some irregularity of the right inferior ischiopubic ramus which could represent a subtle nondisplaced fracture, there is no definite hip fracture or malalignment. There are mild degenerative changes in both hips. IMPRESSION: Mild irregularity of the right inferior ischiopubic ramus which may represent a nondisplaced fracture of indeterminate age. Correlate clinically. No definite hip fracture. Mild degenerative changes in both hips. DICTATED BY: RADHA IGLESIAS MD DATE/TIME DICTATED:08/24/161252 FUNERAL DIRECTOR AND EMBALMER:PETER DATE/TIME TRANSCRIBED:08/24/161252 CONFIDENTIAL, DO NOT COPY WITHOUT APPROPRIATE AUTHORIZATION. <Electronically signed in Other Vendor System> SIGNED BY: RADHA IGLESIAS MD [id number] PATIENT: HENNA GONZALEZ PRESENT AGE: 85 PATIENT ACCOUNT NO: [id number] : 29 LOCATION: [facility] ORDERING PHYSICIAN: RAFAT WINTERS MD SERVICE DATE: 08/24/16 EXAM TYPE: CAT - CT 3D RECON REQ POST PROC; CT ABD & PELVIS W/O IV CONTRAS; CT CHEST WO IV CONTRAST EXAM: NONCONTRAST CT OF THE CHEST; NONCONTRAST CT OF THE ABDOMEN AND PELVIS, CT 3-D RECONSTRUCTION POST PROCEDURE INDICATION: Fall, back pain, abdominal injury COMPARISON: Multiple priors, most recent chest CT 07/30/2015 TECHNIQUE: No IV contrast was utilized. Multidetector helical imaging was performed through the chest, abdomen, and pelvis. Coronal and sagittal reformatted images were created at the technologist workstation. Additional dedicated 3-D reformatted volume rendered images of the osseous structures of the chest, abdomen, and pelvis were created. DLP: 354.30 mGy-cm FINDINGS: Chest: Biapical scarring is noted. No additional region of consolidation is seen. There has been interval decrease in the tiny tree-in-bud type nodular opacities in the right lower lobe compared to 07/30/2015. Several scattered tiny residual nodules are noted, suspicious for endobronchial location. No pneumothorax or pleural effusions. The visualized thyroid gland is unremarkable. There are subcentimeter mediastinal lymph nodes within the range of normal variation. Cardiac size is within normal limits; no pericardial effusion. Coronary artery calcifications are present. There is atherosclerotic calcification along the aorta. No axillary lymphadenopathy is present. Abdomen/Pelvis: The liver is homogeneous in attenuation without intrahepatic biliary ductal dilatation. The gallbladder is unremarkable. The unenhanced spleen, pancreas, and adrenal glands are within normal limits. There is fullness of extrarenal pelvises bilaterally. No renal or ureteral calculi are present. The urinary bladder is distended and otherwise appears unremarkable. Patient appears status post hysterectomy. The small and large bowel are unremarkable without evidence of obstruction or pericolonic inflammatory change. No free fluid or free air is present. There is extensive atherosclerotic calcification. No retroperitoneal or pelvic lymphadenopathy is seen. Osseous structures: There is an essentially nondisplaced fracture of the upper left sacrum. There are mildly displaced fractures of the left superior and inferior pubic rami with mild adjacent hematoma. There is a fracture of the inferior endplate of L3 resulting in approximately 25% loss of vertebral body height centrally. There is anatomic alignment of the thoracolumbar spine. Remaining vertebral body heights are maintained. Multilevel degenerative changes are noted. IMPRESSION: 1. Inferior endplate fracture of L3 with approximately 25% loss of height centrally. 2. Mildly displaced fractures of the left superior and inferior pubic rami. 3. Essentially nondisplaced fracture of the upper left sacrum. 4. No additional acute traumatic findings identified in the chest, abdomen, or pelvis. 5. Interval decrease in tiny tree-in-bud type right lung nodules compared to 07/30/2015. DICTATED BY: NKECHI VELAZQUEZ MD DATE/TIME DICTATED:08/24/161225 FUNERAL DIRECTOR AND EMBALMER:PETER DATE/TIME TRANSCRIBED:08/24/161225 CONFIDENTIAL, DO NOT COPY WITHOUT APPROPRIATE AUTHORIZATION. <Electronically signed in Other Vendor System> SIGNED BY: NKECHI VELAZQUEZ MD 08/24/16 1301 PATIENT: HENNA GONZALEZ PRESENT AGE: 85 PATIENT ACCOUNT NO: [id number] : 29 LOCATION: [facility] ORDERING PHYSICIAN: RAFAT WINTERS MD SERVICE DATE: 08/24/16 EXAM TYPE: CAT - CT 3D RECON REQ POST PROC; CT ABD & PELVIS W/O IV CONTRAS; CT CHEST WO IV CONTRAST EXAM: NONCONTRAST CT OF THE CHEST; NONCONTRAST CT OF THE ABDOMEN AND PELVIS, CT 3-D RECONSTRUCTION POST PROCEDURE INDICATION: Fall, back pain, abdominal injury COMPARISON: Multiple priors, most recent chest CT 07/30/2015 TECHNIQUE: No IV contrast was utilized. Multidetector helical imaging was performed through the chest, abdomen, and pelvis. Coronal and sagittal reformatted images were created at the technologist workstation. Additional dedicated 3-D reformatted volume rendered images of the osseous structures of the chest, abdomen, and pelvis were created. DLP: 354.30 mGy-cm FINDINGS: Chest: Biapical scarring is noted. No additional region of consolidation is seen. There has been interval decrease in the tiny tree-in-bud type nodular opacities in the right lower lobe compared to 07/30/2015. Several scattered tiny residual nodules are noted, suspicious for endobronchial location. No pneumothorax or pleural effusions. The visualized thyroid gland is unremarkable. There are subcentimeter mediastinal lymph nodes within the range of normal variation. Cardiac size is within normal limits; no pericardial effusion. Coronary artery calcifications are present. There is atherosclerotic calcification along the aorta. No axillary lymphadenopathy is present. Abdomen/Pelvis: The liver is homogeneous in attenuation without intrahepatic biliary ductal dilatation. The gallbladder is unremarkable. The unenhanced spleen, pancreas, and adrenal glands are within normal limits. There is fullness of extrarenal pelvises bilaterally. No renal or ureteral calculi are present. The urinary bladder is distended and otherwise appears unremarkable. Patient appears status post hysterectomy. The small and large bowel are unremarkable without evidence of obstruction or pericolonic inflammatory change. No free fluid or free air is present. There is extensive atherosclerotic calcification. No retroperitoneal or pelvic lymphadenopathy is seen. Osseous structures: There is an essentially nondisplaced fracture of the upper left sacrum. There are mildly displaced fractures of the left superior and inferior pubic rami with mild adjacent hematoma. There is a fracture of the inferior endplate of L3 resulting in approximately 25% loss of vertebral body height centrally. There is anatomic alignment of the thoracolumbar spine. Remaining vertebral body heights are maintained. Multilevel degenerative changes are noted. IMPRESSION: 1. Inferior endplate fracture of L3 with approximately 25% loss of height centrally. 2. Mildly displaced fractures of the left superior and inferior pubic rami. 3. Essentially nondisplaced fracture of the upper left sacrum. 4. No additional acute traumatic findings identified in the chest, abdomen, or pelvis. 5. Interval decrease in tiny tree-in-bud type right lung nodules compared to 07/30/2015. DICTATED BY: NKECHI VELAZQUEZ MD DATE/TIME DICTATED:08/24/161225 FUNERAL DIRECTOR AND EMBALMER:PETER DATE/TIME TRANSCRIBED:08/24/161225 CONFIDENTIAL, DO NOT COPY WITHOUT APPROPRIATE AUTHORIZATION. <Electronically signed in Other Vendor System> SIGNED BY: NKECHI VELAZQUEZ MD 08/24/16 1301 PATIENT: HENNA GONZALEZ PRESENT AGE: 85 PATIENT ACCOUNT NO: [id number] : 29 LOCATION: [facility] ORDERING PHYSICIAN: RAFAT WINTERS MD SERVICE DATE: 08/24/16 EXAM TYPE: CAT - CT HEAD WO IV CONTRAST; CT MAXILLOFACIAL W/O CON EXAMINATION: CT HEAD WITHOUT CONTRAST CT OF THE MAXILLOFACIAL REGION CLINICAL INFORMATION: Fall. Head strike right zygoma/cheek with confusion. Assess for intracranial hemorrhage or fracture. COMPARISON: CT scan of the head 01/24/2016. TECHNIQUE: Multidetector CT imaging of the head and maxillofacial region was performed without the use of intravenous contrast. Coronal and sagittal reformatted images were generated at the technologist workstation. Images are degraded by patient motion artifact and some areas. DLP: 1192.28 mGy-cm. FINDINGS: CT Head: There is no evidence of acute intracranial hemorrhage or territorial infarction. No abnormal mass-effect or midline shift is seen. Vega to white matter differentiation is well preserved. No extra-axial fluid collections are identified. The ventricles and sulci are commensurately prominent consistent with moderate diffuse volume loss, similar compared to the prior study. There is low attenuation in the periventricular and subcortical white matter, consistent with chronic microvascular ischemic changes. 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 The study redemonstrates the partially calcified mass along the left falx at the vertex, which is unchanged. There are no acute osseous findings. There are degenerative changes of the right greater than left temporomandibular joints. There are no large scalp contusions or hematomas. There is extensive atheromatous calcification of the bilateral cavernous internal carotid arteries. The mastoid air cells are well-aerated. There is mucoperiosteal thickening in the bilateral ethmoid and frontal sinuses and there is a retention cyst in the right maxillary sinus. CT Maxillofacial Region: No fractures are demonstrated. The nasal bones, maxillary zhao, pterygoid plates and zygomatic arches are intact; there are no air-fluid levels in the maxillary sinuses. The orbits, globes, and the lamina papyracea are intact. The orbital apices, optic canals, and retrobulbar fat planes are normal. The mandible is intact. There are degenerative changes of the right greater than left temporomandibular joints. There is no significant soft tissue swelling in the malar regions. The nasal septum is slightly deviated to the right posteriorly and there is a right-sided bony nasal septal spur. There are degenerative changes in the visualized cervical spine. IMPRESSION: 1. There are no acute intracranial bleeds or territorial infarcts. 2. 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 3. There are no fractures in the maxillofacial region. There are right greater than left degenerative changes of the temporomandibular joints. DICTATED BY: YASSINE BAUER MD DATE/TIME DICTATED:08/24/16946 FUNERAL DIRECTOR AND EMBALMER:PETER DATE/TIME TRANSCRIBED:08/24/16946 CONFIDENTIAL, DO NOT COPY WITHOUT APPROPRIATE AUTHORIZATION. <Electronically signed in Other Vendor System> SIGNED BY: YASSINE BAUER MD 08/24/16 1005 PATIENT: HENNA GONZALEZ PRESENT AGE: 85 PATIENT ACCOUNT NO: [id number] : 29 LOCATION: [facility] ORDERING PHYSICIAN: RAFAT WINTERS MD SERVICE DATE: 08/24/16 EXAM TYPE: CAT - CT HEAD WO IV CONTRAST; CT MAXILLOFACIAL W/O CON EXAMINATION: CT HEAD WITHOUT CONTRAST CT OF THE MAXILLOFACIAL REGION CLINICAL INFORMATION: Fall. Head strike right zygoma/cheek with confusion. Assess for intracranial hemorrhage or fracture. COMPARISON: CT scan of the head 01/24/2016. TECHNIQUE: Multidetector CT imaging of the head and maxillofacial region was performed without the use of intravenous contrast. Coronal and sagittal reformatted images were generated at the technologist workstation. Images are degraded by patient motion artifact and some areas. DLP: 1192.28 mGy-cm. FINDINGS: CT Head: There is no evidence of acute intracranial hemorrhage or territorial infarction. No abnormal mass-effect or midline shift is seen. Vega to white matter differentiation is well preserved. No extra-axial fluid collections are identified. The ventricles and sulci are commensurately prominent consistent with moderate diffuse volume loss, similar compared to the prior study. There is low attenuation in the periventricular and subcortical white matter, consistent with chronic microvascular ischemic changes. 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 The study redemonstrates the partially calcified mass along the left falx at the vertex, which is unchanged. There are no acute osseous findings. There are degenerative changes of the right greater than left temporomandibular joints. There are no large scalp contusions or hematomas. There is extensive atheromatous calcification of the bilateral cavernous internal carotid arteries. The mastoid air cells are well-aerated. There is mucoperiosteal thickening in the bilateral ethmoid and frontal sinuses and there is a retention cyst in the right maxillary sinus. CT Maxillofacial Region: No fractures are demonstrated. The nasal bones, maxillary zhao, pterygoid plates and zygomatic arches are intact; there are no air-fluid levels in the maxillary sinuses. The orbits, globes, and the lamina papyracea are intact. The orbital apices, optic canals, and retrobulbar fat planes are normal. The mandible is intact. There are degenerative changes of the right greater than left temporomandibular joints. There is no significant soft tissue swelling in the malar regions. The nasal septum is slightly deviated to the right posteriorly and there is a right-sided bony nasal septal spur. There are degenerative changes in the visualized cervical spine. IMPRESSION: 1. There are no acute intracranial bleeds or territorial infarcts. 2. 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 3. There are no fractures in the maxillofacial region. There are right greater than left degenerative changes of the temporomandibular joints. DICTATED BY: YASSINE BAUER MD DATE/TIME DICTATED:08/24/16946 FUNERAL DIRECTOR AND EMBALMER:WALKER DATE/TIME TRANSCRIBED:08/24/16946 CONFIDENTIAL, DO NOT COPY WITHOUT APPROPRIATE AUTHORIZATION. <Electronically signed in Other Vendor System> SIGNED BY: YASSINE BAUER MD 08/24/16 1005 PATIENT: HENNA GONZALEZ PRESENT AGE: 85 PATIENT ACCOUNT NO: [id number] : 29 LOCATION: [facility] ORDERING PHYSICIAN: ADELAIDA WILKINSON MD SERVICE DATE: 08/25/16- EXAM TYPE: RAD - XRY-AP PELVIS EXAMINATION: XR PELVIS CLINICAL INFORMATION: Pain status post fall COMPARISON: CT from today. TECHNIQUE: AP view of the pelvis. FINDINGS: The left superior and inferior pubic rami fractures are again noted. No significant displacement. The left sacral fracture is not well seen. The femoral heads are well-seated within their respective acetabula. The pubic symphysis appears appropriately aligned. The bowel gas pattern is unremarkable IMPRESSION: Redemonstration of left superior and inferior pubic rami fractures. No significant displacement. The left sacral fracture is not visualized on this radiograph. DICTATED BY: NIYA BARBER MD DATE/TIME DICTATED:08/25/162310 FUNERAL DIRECTOR AND EMBALMER:RAD.WALKER DATE/TIME TRANSCRIBED:08/25/162310 CONFIDENTIAL, DO NOT COPY WITHOUT APPROPRIATE AUTHORIZATION. <Electronically signed in Other Vendor System> SIGNED BY: NIYA BARBER MD 08/25 2317 PATIENT: HENNA GONZALEZ PRESENT AGE: 85 PATIENT ACCOUNT NO: [id number] : 29 LOCATION: [facility] ORDERING PHYSICIAN: MIKEY MICHAEL MD SERVICE DATE: 08/26/16- EXAM TYPE: RAD - XRY-PORTABLE CHEST XRAY EXAMINATION: XR PORTABLE CHEST CLINICAL INFORMATION: Baseline chest x-ray prior to VQ scan. Status post fall at home. COMPARISON: Portable chest x-ray 12/29/2015. TECHNIQUE: Portable AP view of the chest was obtained. FINDINGS: The lungs are well-expanded and clear without focal airspace consolidation. No pleural effusions or pneumothoraces are identified. Cardiomediastinal contours are within normal limits. Soft tissues are unremarkable. No acute osseous abnormality is identified. IMPRESSION: No acute pulmonary abnormality. DICTATED BY: MICHAEL AYALA MD DATE/TIME DICTATED:08/26/161916 FUNERAL DIRECTOR AND EMBALMER:PETER DATE/TIME TRANSCRIBED:08/26/161916 CONFIDENTIAL, DO NOT COPY WITHOUT APPROPRIATE AUTHORIZATION. <Electronically signed in Other Vendor System> SIGNED BY: MICHAEL AYALA MD 08/26/161930 PATIENT: HENNA GONZALEZ PRESENT AGE: 85 PATIENT ACCOUNT NO: [id number] : 29 LOCATION: [facility] ORDERING PHYSICIAN: ADELAIDA WILKINSON MD SERVICE DATE: 08/26/16- EXAM TYPE: CARD - ECHOCARDIOGRAM HENNA GONZALEZ Age: 85 : 1930 Gender: F Exam Date: 08/26/2016 08:30 Exam Location: [address] [place] [address] Ht (in): 66 Wt (lb): 110 BSA: 1.51 BP: / Ordering Physician: ADELAIDA WILKINSON MD Referring Physician: ADELAIDA WILKINSON MD Technologist: Dmitriy Haque [facility] Room Number: 210-2 Indications: STRUCTURAL HEART DISEASE Rhythm: Sinus Technical Quality: Good FINDINGS Left Ventricle Normal global left ventricular size, wall thickness, systolic function with no obvious regional wall motion abnormalities. Left ventricular ejection fraction is estimated at >65 %. Abnormal relaxation filling pattern of the left ventricle for age (stage 1 diastolic dysfunction). Right Ventricle The right ventricle is normal in size and function. Right Atrium The right atrium is normal in size. Left Atrium The left atrium is normal in size. The interatrial septum is intact. Mitral Valve Mild thickening/calcification of the mitral valve leaflets. Mild mitral valve prolapse. Mild mitral regurgitation. Aortic Valve Focal thickening of the aortic valve cusps. No aortic stenosis. There is trace to mild aortic regurgitation. Tricuspid Valve The tricuspid valve is normal in structure and function. There is mild tricuspid regurgitation. Right ventricular systolic pressure estimated to be elevated at 50-55 mmHg. Pulmonic Valve Structurally normal pulmonic valve. There is pulmonic regurgitation. Pericardium Normal pericardium without effusion. No pleural effusion. Great Vessels Normal aortic root dimension. The aortic arch and great vessels are well seen and are normal. CONCLUSIONS Normal global left ventricular size, wall thickness, systolic function with no obvious regional wall motion abnormalities. Abnormal relaxation filling pattern of the left ventricle for age (stage 1 diastolic dysfunction). The left atrium is normal in size. Mild thickening/calcification of the mitral valve leaflets. Mild mitral valve prolapse. Mild mitral regurgitation. Focal thickening of the aortic valve cusps. No aortic stenosis. There is trace to mild aortic regurgitation. Right ventricular systolic pressure estimated to be elevated at 50-55 mmHg. Ella Morales M.D. (Electronically Signed) Final Date: 26 August 2016 11:45 MEASUREMENTS (Male / Female) Normal Values 2D ECHO LV Diastolic Diameter PLAX 3.8 cm 4.2 - 5.9 / 3.9 - 5.3 cm LV Systolic Diameter PLAX 2.2 cm 2.1 - 4.0 cm LV Fractional Shortening PLAX 42.1 % 25 - 46 % LV Ejection Fraction 2D Teich 73.8 % IVS Diastolic Thickness 1.0 cm LVPW Diastolic Thickness 1.0 cm LV Relative Wall Thickness 0.5 RV Internal Dim ED PLAX 2.6 cm 1.9 - 3.8 cm LVOT Diameter 2.0 cm Aortic Root Diameter 3.4 cm LA Systolic Diameter LX 2.5 cm 3.0 - 4.0 / 2.7 - 3.8 cm Ascending Aorta Diameter 3.2 cm DOPPLER AV Peak Velocity 132.0 cm/s AV Peak Gradient 7.0 mmHg AV Mean Velocity 83.1 cm/s AV Mean Gradient 3.0 mmHg AV Velocity Time Integral 23.1 cm LVOT Peak Velocity 71.7 cm/s LVOT Peak Gradient 2.1 mmHg LVOT Mean Velocity 47.6 cm/s LVOT Mean Gradient 1.0 mmHg LVOT Velocity Time Integral 16.4 cm LVOT Stroke Volume 51.5 cm AV Area Cont Eq vti 2.2 cm AV Area Cont Eq pk 1.7 cm MV Peak Velocity 141.0 cm/s MV Peak Gradient 8.0 mmHg MV Mean Velocity 81.9 cm/s MV Mean Gradient 3.0 mmHg Mitral E Point Velocity 89.5 cm/s Mitral A Point Velocity 133.0 cm/s Mitral E to A Ratio 0.7 MV PHT Velocity 126.0 cm/s MV Deceleration [place] 893.0 cm/s MV Pressure Half Time 42.3 ms MV Area PHT 5.2 cm MV Deceleration Time 254.0 ms TR Peak Velocity 335.0 cm/s TR Peak Gradient 44.9 mmHg Right Atrial Pressure 10.0 mmHg Pulmonary Artery Systolic Pressu 54.9 mmHg Right Ventricular Systolic Press 54.9 mmHg PV Peak Velocity 136.0 cm/s PV Peak Gradient 7.4 mmHg PV Mean Velocity 76.5 cm/s PV Mean Gradient 3.0 mmHg PV Velocity Time Integral 22.8 cm LV E' Lateral Velocity 8.4 cm/s Mitral E to LV E' Lateral Ratio 10.7 LV E' Septal Velocity 6.7 cm/s Mitral E to LV E' Septal Ratio 13.3 DICTATED BY: ELLA MORALES MD, V. DATE/TIME DICTATED:08/26/161145 FUNERAL DIRECTOR AND EMBALMER:PETER DATE/TIME TRANSCRIBED:08/26/161145 CONFIDENTIAL, DO NOT COPY WITHOUT APPROPRIATE AUTHORIZATION. <Electronically signed in Other Vendor System> SIGNED BY: ELLA MORALES MD, V. 08/26/161145 PATIENT: HENNA GONZALEZ PRESENT AGE: 85 PATIENT ACCOUNT NO: [id number] : 29 LOCATION: [facility] ORDERING PHYSICIAN: VIANCA MERCADO MD SERVICE DATE: 08/26/16- EXAM TYPE: NUC - LUNG SCAN (V/Q) EXAMINATION: NM LUNG SCAN V/Q CLINICAL INFORMATION: Chronic PE. Elevated right heart pressures. COMPARISON: None. TECHNIQUE: Ventilation scan utilizing 6.6 mCi xenon-133 with single breath, equilibrium and washout images obtained in posterior projection Perfusion scan following intravenous administration of 4.38 mCi technetium 99m MAA. Images obtained in multiple projections. FINDINGS: Small subsegmental defect noted in the anterior basal segment right lower lobe only seen on the LOCKHART view. The remaining right lung demonstrates fairly uniform perfusion. Fairly uniform perfusion noted on the posterior projection which is compared to the ventilation view. Left lower lung demonstrates decreased ventilation in the left lower lung. No suspicious defects identified on the perfusion images. IMPRESSION: Low probability for pulmonary embolism. Findings were discussed with Dr. Mercado at 6:30 PM on 08/26/2016. DICTATED BY: ALEXIS DONG MD DATE/TIME DICTATED:08/26/161799 FUNERAL DIRECTOR AND EMBALMER:PETER DATE/TIME TRANSCRIBED:08/26/161799 CONFIDENTIAL, DO NOT COPY WITHOUT APPROPRIATE AUTHORIZATION. <Electronically signed in Other Vendor System> SIGNED BY: ALEXIS DONG MD 08/26/162034 Disposition Summary Disposition Principal Diagnosis: pelvic fracture Additional Diagnosis: Hypertension CVA SVT Discharge Disposition: SNF Discharge Instructions General Discharge Information Code Status: Do Not Resucitate/Intubat Patient's Diet: Heart healthy Patient's Activity: As tolerated Follow-Up Instructions/Appts: -Please follow-up with your primary care provider within 7 days after discharge. -We have made changes to your home medications, please read the instructions carefully. -Please come back to the hospital if your symptoms got worse. Medications at Discharge Discharge Medications: Stop taking the following medications: Fluticasone Propionate (Flovent Diskus) 100 MCG BLST.W.DEV Inhale through mouth TWICE DAILY Continue taking these medications: Diltiazem HCl (Diltiazem 24HR Cd) 180 MG CAP.ER.24H 1 Capsule ORAL DAILY Comments: PER PT MED LIST FROM [facility] Magnesium Oxide (Magnesium Oxide) 400 MG TABLET 1 Tablet ORAL TAKE AT BEDTIME Comments: PER PT MED LIST [facility] Thyroid ([place] Thyroid) 15 MG TABLET 1 Tablet ORAL DAILY Comments: PER PT MED LIST [facility] Cholecalciferol (Vitamin D3) (Vitamin D) 5,000 UNIT TABLET 1 Tablet ORAL TAKE AT BEDTIME Comments: PER PT MED LIST FROM [facility] Sennosides/Docusate Sodium (Senna S Tablet) 1 EACH TABLET 2 Tablet ORAL TAKE AT BEDTIME Comments: PER PT MED LIST [facility] Tramadol HCl (Tramadol HCl) 50 MG TABLET 1 Tablet ORAL Every Morning Comments: PER PT MED LIST FROM [facility] Polyethylene Glycol 3350 (Miralax) 17 GM POWD.PACK 1 Packet ORAL DAILY as needed for GI Instructions: dissolve in water Comments: PER PT MED LIST FROM [facility] Acetaminophen (Tylenol) 325 MG TABLET 1 Tablet ORAL Q6H as needed for H/A OR TEMP 100.5> Comments: PER PT MED LIST FROM [facility] Amitriptyline HCl (Amitriptyline HCl) 10 MG TABLET 2 Tablet ORAL Every night Aspirin (Ecotrin*) 325 MG TABLET.DR 1 Tablet ORAL DAILY Quetiapine Fumarate (Quetiapine Fumarate) 50 MG TABLET 1 Tablet ORAL TWICE DAILY Qty = 180 Start taking the following new medications: Fluticasone Propionate (Flovent Hfa) 110 MCG/ACTUATION AER.W.ADAP 1 Puff Inhale through mouth GIVE ONCE Qty = 30 No Refills Tiotropium [place] (Spiriva) 18 MCG CAP.W.DEV 1 Capsule Inhale through mouth DAILY Qty = 30 No Refills Copies To: ANITA BHAGTA,RADHA Pena; PAPA BHAGAT,KELI Anand Attending MD Review Statement Documenting Attending: MARITA BHAGAT,ARASH Pena Other Findings: Pt being dced to [facility] rehab in stable condition. Pubic rami fracture- conservative management Pulm htn- seen by pulmonology. stable for discharge , V/q scan - low probability for PE.
--- NOTE | 2016-08-25 12:52 | PN- Housestaff ---
Subjective Follow-up For: Unwitnessed fall Subjective: Patient seen and examined at bedside. She still endorses some pain hip and lower extremity but reports that it significantly better compared to yesterday. She denies any other acute complaints such as chest pain, palpitation, fever, chills, nausea, vomiting, abdominal pain or dysuria. Overnight event of decreased urine output noted. Review of Systems Constitutional: Reports: no symptoms. Objective Last 24 Hrs of Vital Signs/I&O Vital Signs Date Time Temp Pulse Resp B/P Pulse O2 O2 Flow FiO2 Ox Delivery Rate 08/26 0034 98.8 93 20 142/70 97 08/25 1615 98.0 97 18 142/72 94 08/25 0838 98.6 91 18 148/82 95 Intake & Output 08/26 0800 08/26 0000 08/25 1600 Intake Total 880 1600 Output Total 350 400 Balance 530 1200 Intake, IV 400 400 Intake, Oral 480 1200 Number 1 Bowel Movements Output, Urine 350 400 Physical Exam General Appearance: Alert, Oriented X3, Cooperative Skin: erythema on face consistent with rug burn HEENT: Mucous Membr. moist/pink Neck: Supple, No JVD Cardiovascular: Regular Rate, Normal S1, Normal S2 Lungs: Clear to Auscultation, Normal Air Movement Abdomen: Soft, No Tenderness Neurological: Normal Speech, Sensation Intact Extremities: No Clubbing, No Cyanosis, No Edema, decreased range of motion of bilateral lower extremity and hip area this is due to pain Current Medications: Current Medications Sig/Ulices Start time Last Medication Dose Route Stop Time Status Admin Acetaminophen 1,000 MG Q6P PRN 08/24 2315 AC 08/26 N/A 1 UNIT IV 0330 Acetaminophen 325 MG Q6P PRN 08/24 1900 AC PO Amitriptyline HCl 20 MG QPM 08/24 2200 DC 08/24 PO 210 Aspirin Buffered 325 MG DAILY 08/25 1000 AC 08/25 PO 43 Cholecalciferol 5,000 IU DAILY 08/25 1000 AC 08/25 PO 09 Diltiazem HCl 180 MG DAILY 08/25 1000 AC 08/25 PO 0943 Enoxaparin Sodium 40 MG DAILY 08/25 1000 AC 08/25 SC 0943 Fluticasone 1 PUF BID 08/240 AC 08/25 Propionate INH 2103 Ketorolac 30 MG ONCE PRN 08/24 2315 AC 08/25 Tromethamine IV 2048 Patient Medication 1 ED .STK-MED ONE 08/25 1351 [place] Teaching ED 08/25 1352 Quetiapine Fumarate 50 MG BID 08/24 2200 AC 08/25 PO 2101 Sodium Chloride 1,000 ML Q20H 08/24 2330 DC 08/25 IV 08/25 1929 0140 Thyroid 15 MG DAILY AC 08/25 0700 AC 08/26 PO 0637 Tramadol HCl 50 MG QAM 08/25 1000 AC 08/25 PO 0945 Last 24 Hrs of Lab/Edward Results Last 24 Hrs of Labs/Mics: .. Assessment/Plan Assessment: This is a 85-year-old lady with a significant history of CVA, hypertension, SVT fibromyalgia, hypertension for evaluation of a unwitnessed fall. Based on the patients account she did not experience any syncope. CT findings are unremarkable for any acute intracranial pathology. Mildly displaced fractures of the left superior and inferior pubic rami is evident on pelvis CT. Assessment and plan #Unwitnessed fall Most likely mechanical fall which is supported by the fact that patient tried to ambulate from her bed to the bathroom while he was still dark and she probably was not able to see the floor. It is less likely to have been of cardiac etiology, as patient denies any syncope or presyncope, and did not have any palpitation or other symptoms that are related with cardiac etiology. CT of the head is unremarkable for any intracranial pathology and patient does not endorse any neurological deficit including speech impairment therefore stroke is less likely. She also does not endorse any seizure-like activities, postictal confusion, or bladder or urinary incontinence, therefore seizures as the cause of her fall is also less likely. Plan Fall precautions #Pelvic fracture Patient has radiological finding of mildly dispensed fracture of the left superior and inferior public rami, and nondisplaced fractures of the upper left sacrum. This findings are consistent with low energy stable fracture. She history of osteoporosis predisposed her to increase likelihood of fractures especially to falls. Surgical intervention is not warranted in this type of fractures. Plan Medical management of symptomatic relief with pain medication (acetaminophen for mild pain and tramadol for moderate pain) will await PT reecomendation Orthopedic consult obtained and reccomended medical management (appreaciated) #DVT Due to the fracture patient will be at increased risk for DVT due to decrease mobility. Lovenox for DVT prophylaxis Problem List: 1. Fall at home Pain Ratin Pain Location: lower extremity and hip Pain Goal: Pain 4 or less Pain Plan: apap for mild pain tramadol for moderate pain Tomorrow's Labs & Rationales: BEP-DECREASED URINE OUTPUT CBC: s/p fall trending to r/o any hematoma or bleed
[2016-08-25 16:15] VITALS: BP 142/72
--- NOTE | 2016-08-25 16:54 | PN- Att Addend ---
Attending MD Review Statement Attending Statement Attending MD Statement: examined this patient, discuss w/resident/PA/EARLY CHILDHOOD AIDE CLASSROOM, agreed w/resident/PA/EARLY CHILDHOOD AIDE CLASSROOM, discussed with family, reviewed EMR data (avail), discussed w/ case mgmt Attending Assessment/Plan: Pt seen and examined at bedside. Pt brought in after a fall at her semi assisted living and found to have pubic rami fracture. Pt has h/o SVT and is on diltiazem. Currently in NSR and will get echo to evaluate her EF . will be seen by orthopedics for pubic rami fracture- likely conservative management.
--- NOTE | 2016-08-25 23:17 | RADIOLOGY REPORT ---
EXAMINATION: XR PELVIS CLINICAL INFORMATION: Pain status post fall COMPARISON: CT from today. TECHNIQUE: AP view of the pelvis. FINDINGS: The left superior and inferior pubic rami fractures are again noted. No significant displacement. The left sacral fracture is not well seen. The femoral heads are well-seated within their respective acetabula. The pubic symphysis appears appropriately aligned. The bowel gas pattern is unremarkable IMPRESSION: Redemonstration of left superior and inferior pubic rami fractures. No significant displacement. The left sacral fracture is not visualized on this radiograph.
[2016-08-26 00:34] VITALS: BP 142/70
[2016-08-26 07:47] VITALS: BP 160/72
--- NOTE | 2016-08-26 08:05 | Patient Discharge Instructions ---
Discharge Instructions General Discharge Information You were seen/treated for: Pelvic fracture fall Special Instructions: -Please follow-up with your primary care provider within 7 days after discharge. -We have made changes to your home medications, please read the instructions carefully. -Please come back to the hospital if your symptoms got worse. Diet Recommended Diet: Heart Healthy Activity Full Activity/No Limits: Yes (as tolerated) Acute Coronary Syndrome Inclusion Criteria At DC or during hospital stay patient has or had the following: ACS DIAGNOSIS No Discharge Core Measures Meds if any: Prescribed or Continued at Discharge Meds if any: NOT Prescribed or Continued at Discharge Congestive Heart Failure Inclusion Criteria At DC or during hospital stay patient has or had the following: CHF DIAGNOSIS No Discharge Core Measures Meds if any: Prescribed or Continued at Discharge Meds if any: NOT Prescribed or Continued at Discharge Cerebrovascular accident Inclusion Criteria At DC or during hospital stay patient has or had the following: CVA/TIA Diagnosis No Discharge Core Measures Meds if any: Prescribed or Continued at Discharge Meds if any: NOT Prescribed or Continued at Discharge Venous thromboembolism Inclusion Criteria VTE Diagnosis No VTE Type NONE VTE Confirmed by (Test) NONE Discharge Core Measures - Per Current guidelines, there needs to be overlap - treatment for the first 5 days of Warfarin therapy. - If discharged on Warfarin prior to 5 days of - overlap therapy, the patient will need to be - assessed for post discharge needs including - *Post discharge parental anticoagulation - *Warfarin and/or parental anticoagulation education - *Follow up date to check INR post discharge At least 5 days overlap therapy as Inpatient No Meds if any: Prescribed or Continued at Discharge Note: Overlap Therapy is Warfarin and Anticoagulant Meds if any: NOT Prescribed or Continued at Discharge
[2016-08-26 08:21] LABS: ABSOLUTE BASOPHIL COUNT 0 /CUMM (0.0-0.2); ABSOLUTE EOSINOPHIL COUNT 0.5 /CUMM (0.0-0.7); ABSOLUTE GRANULOCYTE CT 6.4 /CUMM (1.4-6.5); ABSOLUTE MONOCYTE COUNT 1.3 /CUMM (0.10-0.60); BASOPHIL % 0.2 % (0.0-2.0); GRANULOCYTE % 69.4 % (42.2-75.2); HEMATOCRIT 37.4 % (37-47); MEAN CORPUSCULAR HGB CONC 33.8 G/DL (33.0-37.0); MEAN CORPUSCULAR VOLUME 85.7 FL (81.0-99.0); MEAN PLATELET VOLUME 7.4 FL (7.4-10.4); PLATELET COUNT 200 /CUMM (130-400); RBC DISTRIBUTION WIDTH 13.3 % (11.5-14.5); RED BLOOD CELL CT 4.37 /CUMM (4.20-5.40); WHITE BLOOD CELL COUNT 9.2 /CUMM (4.8-10.8)
--- NOTE | 2016-08-26 09:12 | PN- Housestaff ---
Subjective Follow-up For: Unwitnessed fall Fracture Subjective: Patient is seen and examined at bedside. Patient reports that her pain is much better compared to yesterday. She does not endorse any new acute complaints including chest pain, palpitation, shortness of breath, fever, chills, nausea, vomiting, abdominal pain or dysuria. Review of Systems Constitutional: Reports: see HPI. Objective Last 24 Hrs of Vital Signs/I&O Vital Signs Date Time Temp Pulse Resp B/P Pulse O2 O2 Flow FiO2 Ox Delivery Rate 08/26 0747 97.8 87 20 160/72 96 Room Air 08/26 0034 98.8 93 20 142/70 97 08/25 1615 98.0 97 18 142/72 94 Intake & Output 08/26 1600 08/26 0800 08/26 0000 Intake Total 370 880 Output Total 350 200 350 Balance -350 170 530 Intake, IV 120 400 Intake, Oral 250 480 Number 0 Bowel Movements Output, Urine 350 200 350 Physical Exam General Appearance: Alert, Oriented X3, Cooperative Other Physical Findings: Skin: erythema on face consistent with rug burn HEENT: Mucous Membr. moist/pink Neck: Supple, No JVD Cardiovascular: Regular Rate, Normal S1, Normal S2 Lungs: Clear to Auscultation, Normal Air Movement Abdomen: Soft, No Tenderness Neurological: Normal Speech, Sensation Intact Extremities: No Clubbing, No Cyanosis, No Edema, range of motion of the lower extremity compared to previous days, with decreased pain. Current Medications: Current Medications Sig/Ulices Start time Last Medication Dose Route Stop Time Status Admin Acetaminophen 1,000 MG .STK-MED ONE 08/26 0316 DC IV 08/26 0317 Acetaminophen 1,000 MG Q6P PRN 08/245 08/26 N/A 1 UNIT IV 0330 Acetaminophen 325 MG Q6P PRN 08/24 1900 AC PO Aspirin Buffered 325 MG DAILY 08/25 1000 AC 08/26 PO 1016 Cholecalciferol 5,000 IU DAILY 08/25 1000 AC 08/26 PO 1016 Diltiazem HCl 180 MG DAILY 08/25 1000 AC 08/26 PO 1016 Enoxaparin Sodium 40 MG DAILY 08/25 1000 AC 08/26 SC 1016 Fluticasone 1 PUF BID 08/24 2200 AC 08/26 Propionate INH 1017 Ketorolac 30 MG ONCE PRN 08/245 AC 08/25 Tromethamine IV 2048 Patient Medication 1 ED .STK-MED ONE 08/26 1408 [place] Teaching ED 08/26 1409 Quetiapine Fumarate 50 MG BID 08/24 2200 AC 08/26 PO 1016 Sodium Chloride 1,000 ML Q20H 08/24 2330 DC 08/25 IV 08/25 1929 0140 Thyroid 15 MG DAILY AC 08/25 0700 AC 08/26 PO 0637 Tramadol HCl 50 MG QAM 08/25 1000 AC 08/26 PO 1019 Last 24 Hrs of Lab/Edward Results Last 24 Hrs of Labs/Mics: Laboratory Tests 08/26/16 0620: Anion Gap 8, Estimated GFR > 60, BUN/Creatinine Ratio 16.0, CBC w Diff NO MAN DIFF REQ, RBC 4.37, MCV 85.7, MCH 29.0, RDW 13.3, MPV 7.4, Gran % 69.4, Lymphocytes % 11.1 L, Monocytes % 14.3 H, Eosinophils % 5.0, Basophils % 0.2, Absolute Granulocytes 6.4, Absolute Lymphocytes 1.0 L, Absolute Monocytes 1.3 H, Absolute Eosinophils 0.5, Absolute Basophils 0, PUBS MCHC 33.8 Assessment/Plan Assessment: This is a 85-year-old lady with a significant history of CVA, hypertension, SVT fibromyalgia, hypertension for evaluation of a unwitnessed fall. Based on the patients account she did not experience any syncope. CT findings are unremarkable for any acute intracranial pathology. Mildly displaced fractures of the left superior and inferior pubic rami is evident on pelvis CT. Assessment and plan #Unwitnessed fall Most likely mechanical fall which is supported by the fact that patient tried to ambulate from her bed to the bathroom while he was still dark and she probably was not able to see the floor. It is less likely to have been of cardiac etiology, as patient denies any syncope or presyncope, and did not have any palpitation or other symptoms that are related with cardiac etiology. CT of the head is unremarkable for any intracranial pathology and patient does not endorse any neurological deficit including speech impairment therefore stroke is less likely. She also does not endorse any seizure-like activities, postictal confusion, or bladder or urinary incontinence, therefore seizures as the cause of her fall is also less likely. Plan Fall precautions #Pelvic fracture Patient has radiological finding of mildly dispensed fracture of the left superior and inferior public rami, and nondisplaced fractures of the upper left sacrum. This findings are consistent with low energy stable fracture. She history of osteoporosis predisposed her to increase likelihood of fractures especially to falls. Surgical intervention is not warranted in this type of fractures. Plan Medical management of symptomatic relief with pain medication (acetaminophen for mild pain and tramadol for moderate pain) will await PT reecomendation Orthopedic consult obtained and reccomended medical management (appreaciated) #Elevated right ventricular pressure Right ventricular systolic pressure estimated to be elevated at 50-55 mmHg. possible etiology include primary (pulmonary hypertension as a result of her history of COPD) versus secondary causes such as left heart failure, pulmonary embolus. She does have a history of mitral valve labs however it is mild based on today's echo. Plan Will obtain pulmonology consult. #DVT Due to the fracture patient will be at increased risk for DVT due to decrease mobility. Lovenox for DVT prophylaxis Problem List: 1. Closed fracture of pubic ramus 2. Fracture of sacrum 3. Fall at home Pain Ratin Pain Location: lower extremities Pain Goal: Pain 4 or less Pain Plan: apap for mild pain tramadol for moderate pain Tomorrow's Labs & Rationales: BEP-HYPONATREMIA
--- NOTE | 2016-08-26 11:46 | ECHOCARDIOGRAM REPORT ---
HENNA GONZALEZ Age: 85 : 1930 Gender: F Exam Date: 08/26/2016 08:30 Exam Location: [address] [place] [address] Ht (in): 66 Wt (lb): 110 BSA: 1.51 BP: / Ordering Physician: ADELAIDA WILKINSON MD Referring Physician: ADELAIDA WILKINSON MD Technologist: Dmitriy Haque [facility] Room Number: 210-2 Indications: STRUCTURAL HEART DISEASE Rhythm: Sinus Technical Quality: Good FINDINGS Left Ventricle Normal global left ventricular size, wall thickness, systolic function with no obvious regional wall motion abnormalities. Left ventricular ejection fraction is estimated at >65 %. Abnormal relaxation filling pattern of the left ventricle for age (stage 1 diastolic dysfunction). Right Ventricle The right ventricle is normal in size and function. Right Atrium The right atrium is normal in size. Left Atrium The left atrium is normal in size. The interatrial septum is intact. Mitral Valve Mild thickening/calcification of the mitral valve leaflets. Mild mitral valve prolapse. Mild mitral regurgitation. Aortic Valve Focal thickening of the aortic valve cusps. No aortic stenosis. There is trace to mild aortic regurgitation. Tricuspid Valve The tricuspid valve is normal in structure and function. There is mild tricuspid regurgitation. Right ventricular systolic pressure estimated to be elevated at 50-55 mmHg. Pulmonic Valve Structurally normal pulmonic valve. There is pulmonic regurgitation. Pericardium Normal pericardium without effusion. No pleural effusion. Great Vessels Normal aortic root dimension. The aortic arch and great vessels are well seen and are normal. CONCLUSIONS Normal global left ventricular size, wall thickness, systolic function with no obvious regional wall motion abnormalities. Abnormal relaxation filling pattern of the left ventricle for age (stage 1 diastolic dysfunction). The left atrium is normal in size. Mild thickening/calcification of the mitral valve leaflets. Mild mitral valve prolapse. Mild mitral regurgitation. Focal thickening of the aortic valve cusps. No aortic stenosis. There is trace to mild aortic regurgitation. Right ventricular systolic pressure estimated to be elevated at 50-55 mmHg. Pillo Morales M.D. (Electronically Signed) Final Date: 26 August 2016 11:45 MEASUREMENTS (Male / Female) Normal Values 2D ECHO LV Diastolic Diameter PLAX 3.8 cm 4.2 - 5.9 / 3.9 - 5.3 cm LV Systolic Diameter PLAX 2.2 cm 2.1 - 4.0 cm LV Fractional Shortening PLAX 42.1 % 25 - 46 % LV Ejection Fraction 2D Teich 73.8 % IVS Diastolic Thickness 1.0 cm LVPW Diastolic Thickness 1.0 cm LV Relative Wall Thickness 0.5 RV Internal Dim ED PLAX 2.6 cm 1.9 - 3.8 cm LVOT Diameter 2.0 cm Aortic Root Diameter 3.4 cm LA Systolic Diameter LX 2.5 cm 3.0 - 4.0 / 2.7 - 3.8 cm Ascending Aorta Diameter 3.2 cm DOPPLER AV Peak Velocity 132.0 cm/s AV Peak Gradient 7.0 mmHg AV Mean Velocity 83.1 cm/s AV Mean Gradient 3.0 mmHg AV Velocity Time Integral 23.1 cm LVOT Peak Velocity 71.7 cm/s LVOT Peak Gradient 2.1 mmHg LVOT Mean Velocity 47.6 cm/s LVOT Mean Gradient 1.0 mmHg LVOT Velocity Time Integral 16.4 cm LVOT Stroke Volume 51.5 cm AV Area Cont Eq vti 2.2 cm AV Area Cont Eq pk 1.7 cm MV Peak Velocity 141.0 cm/s MV Peak Gradient 8.0 mmHg MV Mean Velocity 81.9 cm/s MV Mean Gradient 3.0 mmHg Mitral E Point Velocity 89.5 cm/s Mitral A Point Velocity 133.0 cm/s Mitral E to A Ratio 0.7 MV PHT Velocity 126.0 cm/s MV Deceleration Bullitt 893.0 cm/s MV Pressure Half Time 42.3 ms MV Area PHT 5.2 cm MV Deceleration Time 254.0 ms TR Peak Velocity 335.0 cm/s TR Peak Gradient 44.9 mmHg Right Atrial Pressure 10.0 mmHg Pulmonary Artery Systolic Pressu 54.9 mmHg Right Ventricular Systolic Press 54.9 mmHg PV Peak Velocity 136.0 cm/s PV Peak Gradient 7.4 mmHg PV Mean Velocity 76.5 cm/s PV Mean Gradient 3.0 mmHg PV Velocity Time Integral 22.8 cm LV E' Lateral Velocity 8.4 cm/s Mitral E to LV E' Lateral Ratio 10.7 LV E' Septal Velocity 6.7 cm/s Mitral E to LV E' Septal Ratio 13.3
--- NOTE | 2016-08-26 13:13 | PN- Att Addend ---
Attending MD Review Statement Attending Statement Attending MD Statement: examined this patient, discuss w/resident/PA/STILL OPERATOR WHISKEY, agreed w/resident/PA/STILL OPERATOR WHISKEY, reviewed EMR data (avail), discussed w/nursing Attending Assessment/Plan: Repeat echo shows RVSP of 50-55 which was 25 in september of 2015. Unclear etiology of increase in pulm pressures. will get pulmonology consult. Pubic rami fracture- conservative management. Plan is to dc her to [facility].
[2016-08-26 16:14] VITALS: BP 146/68
--- NOTE | 2016-08-26 19:31 | RADIOLOGY REPORT ---
EXAMINATION: XR PORTABLE CHEST CLINICAL INFORMATION: Baseline chest x-ray prior to VQ scan. Status post fall at home. COMPARISON: Portable chest x-ray 12/29/2015. TECHNIQUE: Portable AP view of the chest was obtained. FINDINGS: The lungs are well-expanded and clear without focal airspace consolidation. No pleural effusions or pneumothoraces are identified. Cardiomediastinal contours are within normal limits. Soft tissues are unremarkable. No acute osseous abnormality is identified. IMPRESSION: No acute pulmonary abnormality.
--- NOTE | 2016-08-26 20:35 | NUCLEAR MEDICINE REPORT ---
EXAMINATION: NM LUNG SCAN V/Q CLINICAL INFORMATION: Chronic PE. Elevated right heart pressures. COMPARISON: None. TECHNIQUE: Ventilation scan utilizing 6.6 mCi xenon-133 with single breath, equilibrium and washout images obtained in posterior projection Perfusion scan following intravenous administration of 4.38 mCi technetium 99m MAA. Images obtained in multiple projections. FINDINGS: Small subsegmental defect noted in the anterior basal segment right lower lobe only seen on the LOCKHART view. The remaining right lung demonstrates fairly uniform perfusion. Fairly uniform perfusion noted on the posterior projection which is compared to the ventilation view. Left lower lung demonstrates decreased ventilation in the left lower lung. No suspicious defects identified on the perfusion images. IMPRESSION: Low probability for pulmonary embolism. Findings were discussed with Dr. Mercado at 6:30 PM on 08/26/2016.
[2016-08-26 23:36] VITALS: BP 140/76
[2016-08-27 08:01] VITALS: BP 120/68
--- NOTE | 2016-08-27 11:01 | Cons- Pulmonary ---
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 of note, patient lives at [facility]. She reports that it was still dark when she woke up from sleep and attempted to get of bed in order to go to the bathroom. She reports falling down while attempting to get out of bed and fell on her face. She was found on the floor by the nursing staff. Patient reports that she never lost consciousness and throughout the episode she was thinking to herself and realizing that she'll have to wait till help comes and she decided not to screem for help. She denies any loss of consciousness, palpitation or any prodromal syndrome, she denies any seizure-like activities, vertigo, tinnitus, headache, numbness, any neurological deficit, or confusion. She also denies any recent infection, fever, chills, nausea, vomiting, chest pain, palpitation, shortness of breath, abdominal pain or dysuria. Since she came in she had an echocardiogram for workup of syncope. He did show pulmonary hypertension which was worse than the previous echo hence this consult. Patient has had previous imaging study for her lung which had shown significant emphysema. However her spirometry and lung function tests have been preserved from a previous PFTs. She does have mild bronchiectasis and previous scarring in her lung and she is high risk for recurrent infections. She is on a daily inhaler and she does not remember the name. No recent steroid use. Never been intubated for any pulmonary issue. She has had no previous history of smoking No clinical evidence suggestive of GERD or aspiration. Review of Systems Constitutional: Denies: diaphoresis, fever, malaise. EENTM: Denies: double vision, visual changes. Cardiovascular: Denies: chest pain, edema, orthopena. Respiratory: Denies: cough, hemoptysis, orthopnea. GI: Denies: diarrhea, distention, bowel incontinence, melena, bloody stool. Genitourinary: Denies: frequency, hematuria. Musculoskeletal: Reports: muscle pain. Skin: Reports: lesions. Neurological/Psychological: Denies: ataxia, confusion, depressed, paresthesia, pre-existing deficit. Hematologic/Endocrine: Reports: bruising. Immunologic/Allergic: Reports: no symptoms. All Other Systems: Reviewed and Negative Allergies/Medications Allergies: Coded Allergies: duloxetine (From CYMBALTA) (Severe, RASH 10/15/15) Benzodiazepines (UNKNOWN PER PT 10/15/15) clarithromycin (From BIAXIN) (UNKNOWN PER PT 10/15/15) lisinopril (UNKNOWN PER PT 10/15/15) meperidine (From DEMEROL) (UNKNOWN PER PT 10/15/15) verapamil (UNKNOWN PER PT 10/15/15) Uncoded Allergies: OPIOD (Severe, N/V, DIZZINESS 10/15/15) "SEDATIVES" (UNKNOWN PER PT 10/15/15) Home Med List: Acetaminophen (Tylenol) 325 MG TABLET 1 TAB PO Q6H PRN H/A OR TEMP 100.5> ( Reported) Amitriptyline HCl 10 MG TABLET 2 TAB PO QPM HEADACHE (Reported) Aspirin (Ecotrin*) 325 MG TABLET.DR 1 TAB PO DAILY STROKE (Reported) Cholecalciferol (Vitamin D3) (Vitamin D) 5,000 UNIT TABLET 1 TAB PO QHS SUPPLEMENT (Reported) Diltiazem HCl (Diltiazem 24HR Cd) 180 MG CAP.ER.24H 1 CAP PO DAILY HEART/BP ( Reported) Fluticasone Propionate (Flovent Diskus) 100 MCG BLST.W.DEV 1 PUF INH BID COPD (Reported) Magnesium Oxide 400 MG TABLET 1 TAB PO QHS SUPPLEMENT (Reported) Polyethylene Glycol 3350 (Miralax) 17 GM POWD.PACK 1 PAC PO DAILY PRN GI ( Reported) dissolve in water Quetiapine Fumarate 50 MG TABLET 1 TAB PO BID DEPRESSION (Reported) Sennosides/Docusate Sodium (Senna S Tablet) 1 EACH TABLET 2 TAB PO QHS GI ( Reported) Thyroid (Home Thyroid) 15 MG TABLET 1 TAB PO DAILY THYROID (Reported) Tramadol HCl 50 MG TABLET 1 TAB PO QAM CHRONIC PAIN (Reported) Review of Systems Review of Systems Constitutional: Reports: see HPI. 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 Relation not specified for: FH: bladder cancer FH: breast cancer Psychosocial History Who Do You Live With? grand tammi Services at Home: None Smoking Status: Never Smoked ETOH Use: denies use Illicit Drug Use: denies illicit drug use Functional Ability ADLs Independent: dressing, eating, toileting, bathing. Ambulation: independent IADLs Independent: shopping, housework, finances, food prep, telephone, transportation , medication admin. Exam & Diagnostic Data Last 24 Hrs of Vital Signs/I&O Vital Signs Date Time Temp Pulse Resp B/P Pulse O2 O2 Flow FiO2 Ox Delivery Rate 08/27 0801 97.9 90 18 120/68 96 Room Air 08/26 2336 97.4 104 18 140/76 96 Room Air 08/26 1614 98.3 98 20 146/68 97 Intake & Output 08/27 1600 08/27 0800 08/27 0000 Intake Total 30 Output Total Balance 30 Intake, Oral 30 Number 1 2 Bowel Movements Patient 110 lb Weight Last 48 Hrs of Labs/Edward: Laboratory Tests 08/27/16 0610: Anion Gap 7, Estimated GFR > 60, BUN/Creatinine Ratio 28.3 H 08/26/16 0620: Anion Gap 8, Estimated GFR > 60, BUN/Creatinine Ratio 16.0, CBC w Diff NO MAN DIFF REQ, RBC 4.37, MCV 85.7, MCH 29.0, RDW 13.3, MPV 7.4, Gran % 69.4, Lymphocytes % 11.1 L, Monocytes % 14.3 H, Eosinophils % 5.0, Basophils % 0.2, Absolute Granulocytes 6.4, Absolute Lymphocytes 1.0 L, Absolute Monocytes 1.3 H, Absolute Eosinophils 0.5, Absolute Basophils 0, PUBS MCHC 33.8 Assessment/Plan Impression/Plan: Physical Exam General Appearance Alert, Oriented X3, Cooperative Skin bruises on both sides of faces HEENT PERRLA, EOMI, Mucous Membr. moist/pink Neck Supple, No JVD Lymphatic Cervical nl Cardiovascular Regular Rate, Normal S1, Normal S2 Lungs Clear to Auscultation, Normal Air Movement Abdomen Normal Bowel Sounds, Soft, No Tenderness Neurological Normal Speech, Normal Tone, Sensation Intact, Cranial Nerves 3-12 NL, Reflexes 2+ Extremities No Clubbing, No SIGNIFICANT DATA Echocardiogram reviewed He does show that she has diastolic heart, mild mitral valve prolapse and mild mitral regurgitation. And her estimated PA pressure was more than 50 in the recent echocardiogram which was much less before. Previous PFTs in [address] scans reviewed which did show that the she has significant emphysematous lung with multiple endobronchial densities in nodules appears to be more of bronchiolitis which has been present for a few years with enlarged lymph node which has been stable as well. And these infiltrates have been back seeing and maintaining which is suggestive of ongoing atypical infection versus infection with mild bronchiectasis. VQ scan done upon admission negative She did have a CT scan of the chest abdomen and pelvis upon admission which did show similar findings with the new compression fracture in the lumbar area and left superior inferior pubic rami fracture and nondisplaced fracture in the left sacrum and decreasing nodules since last year. IMPRESSION This is an 85-year-old lady with previous history of CVA with no residual deficit, hypertension, previous fibromyalgia, previous history of arrythmias, has had witnessed fall and now admitted. History does not suggest syncope. She has multiple fractures as noted above. Her pulmonary and other issues include * Advanced emphysema as noted in the CT scan, with preserved pulmonary function, with on and off small lung nodules suggestive of recurrent bronchiolitis. No evidence suggestive of ongoing aspiration or GERD but this could be a possibility. No other active issues pulmonary dawson. * Previous small lung nodule which seems to be stable or resolved hence benign probably * Significant pulmonary hypertension noted in the echocardiogram with no clinical evidence suggestive of right heart failure. She is does have evidence of mitral valve disease and diastolic heart which may be contribution to it. She also does have advanced lung disease by CT, however her pulmonary functions have been preserved and her oxygen saturation is normal. It's unlikely that she has any pulmonary hypertension from severe lung disease (no evidence suggestive of chronic venous thromboembolism as noted in the VQ scan) * Multiple fractures in the pelvis and lumbar area with the history suggestive of osteoporosis RECOMMENDATION * Continue current therapy * Patient is not actively wheezing and can start her on Spiriva 1 puff once a day and reduce the fluticasone MDI to 1 puff daily * Aggressively treat osteoporosis. * Continue calcium channel debora which would help her pulmonary hypertension as well * DVT prophylaxis Will follow as needed over the weekend Call for any issues if needed. Pillo Montelongo MD covering me for the weekend Consult Acknowledgment - Thank you for your consult request.
[2016-08-27 12:47] VITALS: BP 120/68
--- NOTE | 2016-08-27 13:24 | PN- Housestaff ---
See Addendum Subjective Follow-up For: Fall at home Fracture Subjective: She is seen and examined at bedside. Patient reports that her pain is much better and does not endorse any acute complaints including chest pain, palpitation, shortness of breath, fever, chills, abdominal pain or dysuria. Patient is aware that she will be discharged today and will be heading to short- term rehabilitation. Review of Systems Constitutional: Denies: see HPI. Objective Last 24 Hrs of Vital Signs/I&O Vital Signs Date Time Temp Pulse Resp B/P Pulse O2 O2 Flow FiO2 Ox Delivery Rate 08/27 1247 97.9 90 18 120/68 02 0801 97.9 90 18 120/68 96 Room Air 08/26 2336 97.4 104 18 140/76 96 Room Air 08/26 1614 98.3 98 20 146/68 97 Intake & Output 08/27 1600 08/27 0800 08/27 0000 Intake Total 30 Output Total Balance 30 Intake, Oral 30 Number 1 2 Bowel Movements Patient 49.895 kg Weight Physical Exam General Appearance: Alert, Oriented X3, Cooperative Lungs: Clear to Auscultation, Normal Air Movement Abdomen: Normal Bowel Sounds, Soft, No Tenderness Extremities: No Clubbing, No Edema, Normal Pulses, improved range of motion of lower extremity and hip compared to previous day Current Medications: Current Medications Sig/Ulices Start time Last Medication Dose Route Stop Time Status Admin Acetaminophen 1,000 MG Q6P PRN 08/24 2315 AC 08/26 N/A 1 UNIT IV 0330 Acetaminophen 325 MG Q6P PRN 08/24 1900 AC PO Aspirin Buffered 325 MG DAILY 08/25 1000 AC 08/27 PO 0957 Cholecalciferol 5,000 IU DAILY 08/25 1000 AC 08/27 PO 1001 Diltiazem HCl 180 MG DAILY 08/25 1000 AC 08/27 PO 0955 Enoxaparin Sodium 40 MG DAILY 08/25 1000 AC 08/27 SC 1002 Fluticasone 1 PUF BID 08/24 2200 AC 08/27 Propionate INH 1008 Ketorolac 30 MG ONCE PRN 08/24 2315 AC 08/25 Tromethamine IV 2048 Patient Medication 1 ED ONE ONE 08/27 1315 TN Teaching ED 08/27 1316 Patient Medication 1 ED .STK-MED ONE 08/26 1408 TN Teaching ED 08/26 1409 Quetiapine Fumarate 50 MG BID 08/24 2200 AC 08/27 PO 0957 Thyroid 15 MG DAILY AC 08/25 0700 AC 08/27 PO 0606 Tramadol HCl 50 MG QAM 08/25 1000 AC 08/27 PO 0957 Last 24 Hrs of Lab/Edward Results Last 24 Hrs of Labs/Mics: Laboratory Tests 08/27/16 0610: Anion Gap 7, Estimated GFR > 60, BUN/Creatinine Ratio 28.3 H Assessment/Plan Assessment: This is a 85-year-old lady with a significant history of CVA, hypertension, SVT fibromyalgia, hypertension for evaluation of a unwitnessed fall. Based on the patients account she did not experience any syncope. CT findings are unremarkable for any acute intracranial pathology. Mildly displaced fractures of the left superior and inferior pubic rami is evident on pelvis CT. Assessment and plan #Unwitnessed fall Believed to be mechanical fall with less likelihood of stroke, cardiac or seizure etiology. Patient is due for discharge today to short-term rehabilitation for PT treatment. #Pelvic fracture Patient has radiological finding of mildly dispensed fracture of the left superior and inferior public rami, and nondisplaced fractures of the upper left sacrum. This findings are consistent with low energy stable fracture. She history of osteoporosis predisposed her to increase likelihood of fractures especially to falls. Surgical intervention is not warranted in this type of fractures. Plan Medical management of symptomatic relief with pain medication (acetaminophen for mild pain and tramadol for moderate pain) Patient will go to short-term rehabilitation. Condition instructed to make sure that she uses a walking roller when ambulating at all times. Orthopedic consult obtained and reccomended medical management (appreaciated) #Elevated right ventricular pressure Right ventricular systolic pressure estimated to be elevated at 50-55 mmHg. possible etiology include primary (pulmonary hypertension as a result of her history of COPD) versus secondary causes such as left heart failure, pulmonary embolus. She does have a history of mitral valve labs however it is mild based on today's echo. V/Q scan obtain is unremarkable for any perfusion defects. . Problem List: 1. Fall at home 2. Closed fracture of pubic ramus Pain Ratin Pain Location: Lower extremity Pain Goal: Pain 4 or less Pain Plan: Mild pain Oxycodone for moderate pain Tomorrow's Labs & Rationales: None patient is being discharged
[2016-08-27] MEDS ORDERED: FLOVENT HFA12 G1 INH (13:32)
[2016-08-27] MEDS ORDERED: SPIRIVA18 MCG INH (13:32)
--- NOTE | 2016-08-29 19:45 | Cons- Orthopedic ---
General Information and HPI Consulting Request Date of Consult: 08/26/16 Requested By: MARITA BHAGAT,ARASH Pena Reason for Consult: Left superior and inferior pubic ramus fractures as well as left sacral alar traumatic and probable right sacral alar and L3 inferior endplate traumatic and insufficiency compression fractures. Source of Information: patient (extremely limited d/t dementia), old records ( EHR), [facility] EHR Records (Emergency Department, Admitting Medicine Service, Consulting Services, Radiology Department and other Inpatient Care Service EHR records and reports for current [facility] admission) Exam Limitations: confusion, dementia, poor historian (mild dementia), physical impairment (Pt bedridden d/t multi-fx pain), Fracture (patient motor and range of motion examination limited due to pain of pubic ramus, sacral alar and vertebral endplate fractures consistent with the reported and radiologically documented injury. Fracture patterns are stable and hopefully will not be a significant limitation to evaluation going forward once the pain is better controlled with medication and/or decreased with progressive healing.), Cognitive Deficit (Patient is mildly confused and has associated difficulty localizing pain and following instructions regarding mobilization and therapy.), Pain (Severe left inguinal region pain even with intermediate arc log-roll rotation motion limited overall evaluation of the hip, gluteal and pelvis regions. Pain with torso rotation or lumbar flexion was also painful and limiting. Pain precluded patient mobilization for this initial evaluation. Serial evaluations may be indicated if she is unable to mobilize better over the next few days. Gross musculoskeletal and functional testing of the lower extremities was adequate for clinical assessment and overall normal.), Poor Pain Tolerance , Poor Localization Of Pain On Examination (with diffuse involvement of multiple regions making it difficult to definitively determine the location and severity of the injuries, the recommendations for treatment or the prognosis and expected duration of recovery.) History of Present Illness: Patient seen by Aman Shah M.D. in consultation on 08/26/2016 @ 11:00 AM: Paulina Rao is an 85 year old white female resident of [facility] living [facility] who was admitted to the hospital through the emergency department on 08/24/2016 with debilitating left ischial, inguinal, hip, sacral and lumbar region pain following an unwitnessed and presumably unprotected, intermediate energy fall primarily impacting her buttock. She denies any other area of impact, injury or symptomatology but had ecchymosis on her face. She had recollection of getting out of bed but not of the fall suggesting possible loss of consciousness. She was therefore evaluated and cleared by protocol ER evaluation for head trauma. She is mildly demented and therefore a poor historian. She was found on the floor by the staff after an undefined but presumably fairly short period of time. She was unable to get up or weight-bear after the fall and was brought in by ambulance to the [facility] Emergency Department where radiology reading of abdomen and pelvis CT without contrast documented an impacted left superior and inferior pubic ramus fracture, a superolateral corner sacral ala fracture and an inferior endplate L3 compression fracture all consistent with her described injury, reported symptoms and examination findings of tenderness and pain with motion. Radiology reading of subsequent AP pelvis confirmed the rami fractures and ruled out any pelvic asymmetry or deformity associated with the fracture. The orthopaedic service was consulted to make recommendations regarding pain control, mobilization as well as post-discharge management and follow-up. In addition to mild dementia reported above, the patient has numerous past medical history diagnoses reported by her primary admitting medical team in their admission history & physical report but none are significant to her orthopaedic consultation except for osteoporosis with no information available regarding work-up, follow-up, severity or treatment other than Vitamin D3. She is on a number of medications and has several allergies but none that significantly impact her orthopaedic evaluation and treatment. See admitting team documentation for additional details of her medical and surgical history, medications, allergies and other clinical history data. Her functional history is unclear but she reports ambulating either independently or with a cane although reports suggest that she has been instructed to use a walker because of unsteady gait. It is unclear whether she has had previous falls. Allergies/Medications Allergies: Coded Allergies: duloxetine (From CYMBALTA) (Severe, RASH 10/15/15) Benzodiazepines (UNKNOWN PER PT 10/15/15) clarithromycin (From BIAXIN) (UNKNOWN PER PT 10/15/15) lisinopril (UNKNOWN PER PT 10/15/15) meperidine (From DEMEROL) (UNKNOWN PER PT 10/15/15) verapamil (UNKNOWN PER PT 10/15/15) Uncoded Allergies: OPIOD (Severe, N/V, DIZZINESS 10/15/15) "SEDATIVES" (UNKNOWN PER PT 10/15/15) Home Med List: Acetaminophen (Tylenol) 325 MG TABLET 1 TAB PO Q6H PRN H/A OR TEMP 100.5> ( Reported) Amitriptyline HCl 10 MG TABLET 2 TAB PO QPM HEADACHE (Reported) Aspirin (Ecotrin*) 325 MG TABLET.DR 1 TAB PO DAILY STROKE (Reported) Cholecalciferol (Vitamin D3) (Vitamin D) 5,000 UNIT TABLET 1 TAB PO QHS SUPPLEMENT (Reported) Diltiazem HCl (Diltiazem 24HR Cd) 180 MG CAP.ER.24H 1 CAP PO DAILY HEART/BP ( Reported) Fluticasone Propionate (Flovent Hfa) 110 MCG/ACTUATION AER.W.ADAP 1 PUF INH ONCE EMPHYSEMA Magnesium Oxide 400 MG TABLET 1 TAB PO QHS SUPPLEMENT (Reported) Polyethylene Glycol 3350 (Miralax) 17 GM POWD.PACK 1 PAC PO DAILY PRN GI ( Reported) dissolve in water Quetiapine Fumarate 50 MG TABLET 1 TAB PO BID DEPRESSION (Reported) Sennosides/Docusate Sodium (Senna S Tablet) 1 EACH TABLET 2 TAB PO QHS GI ( Reported) Thyroid ([place] Thyroid) 15 MG TABLET 1 TAB PO DAILY THYROID (Reported) Tiotropium [place] (Spiriva) 18 MCG CAP.W.DEV 1 CAP INH DAILY LUNG HEALTH Tramadol HCl 50 MG TABLET 1 TAB PO QAM CHRONIC PAIN (Reported) Past History Medical History Blood Transfusion Hx: Yes Neurological: vertigo, ATYPICAL MIGRAINE HEADACH MENINGIOMA LYME DISEASE STROKE 2015 EENT: NONE Cardiovascular: AFIB, hypertension, SVT Respiratory: COPD Gastrointestinal: H PYLORI Hepatic: NONE Renal: NONE Musculoskeletal: fibromyalgia, fracture, osteoarthritis, osteoporosis, SCOLIOSIS FX KNEE Psychiatric: anxiety Endocrine: hypothyroidism Blood Disorders: NONE 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 Refer elsewhere in this and other documents for additional details. There is no other information in these categories that I am aware of and no additional information was provided by the patient on consultation evaluation today which is directly pertinent to the patient's orthopaedic consultation evaluation, assessment, recommendations or care. Surgical History Pertinent Surgical History: appendectomy, hysterectomy, TONSILLECTOMY X 2 Family History Relations & Conditions If Any: FATHER (dementia). Relation not specified for: FH: bladder cancer FH: breast cancer Psychosocial History Who Do You Live With? [facility] Services at Home: None Smoking Status: Never Smoked ETOH Use: denies use Illicit Drug Use: denies illicit drug use Functional Ability ADLs Independent: dressing, eating, toileting, bathing. Ambulation: independent IADLs Independent: shopping, housework, finances, food prep, telephone, transportation , medication admin. Review of Systems Review of Systems: No additional information was obtained during this consultation evaluation compared to the comprehensive review of systems documented in the primary admission history and physical evaluation. Refer to that document for details. Exam & Diagnostic Data Vital Signs and I&O No vital sign changes or instabilities were reported or noted during the consultation assessment. Physical Exam: Physical examination specific to the areas of injury, symptomatology and radiologic findings showed moderate left inguinal pain to palpation but only limited swelling and no ecchymosis. The patient also reported significant tenderness in the contralateral inguinal region as well as the bilateral gluteal and sacroiliac regions and the central and paracentral sacral and lower lumbar areas. Her pain with left hip short arc log-roll, flexion and even flexed internal and external rotation was moderate and poorly tolerated and so hip motion testing was immediately discontinued (followed by rapid resolution of motion-related pain). Similar motion on the right was still associated with poorly localized pain but was better tolerated. A comprehensive global trauma assessment of the head, neck, torso, and extremities was also performed and showed no other areas of symptoms or findings to suggest additional injuries or deficits except for the facial ecchymosis as noted previously. She was awake and alert during the evaluation with limited communication, following of commands and cooperation with the evaluation. She was only partially oriented to person, place, time and situation without any significant disorientation, confusion or sedation. She has a normocephalic and atraumatic skull and scalp with pupils equal round and reactive to light, no light sensitivity and no evidence of visual disturbance on gross testing. Her ears, nose and throat are clear to superficial examination with no hearing, breathing or vocalization abnormality noted. The ecchymosis described previously is not associated with any laceration, underlying crepitus, significant swelling or subcutaneous emphysema. Her neck is supple and nontender with normal and non-painful motion without evidence of radiating or associated neurological symptoms or findings. Cervical, thoracic and upper lumbar spinal regions are nontender with no evidence of deformity except for kyphoscoliosis which does not appear to be associated with symptoms. The lower lumbar and posterior sacral and pelvic regions are tender without ecchymosis as noted above. The bilateral shoulders, clavicles and osseous thoracic region are nontender to palpation. Abdomen, flank regions and costovertebral angles are nontender with no evidence of masses or organomegaly. Pelvis is nontender to palpation except as described above in the inguinal and ischial regions. There was no pain with gentle distractive stress application to the bilateral iliac wings to suggest an occult pelvic ring disruption. Buttock and lateral hip regions are nontender bilaterally. All extremities are musculoskeletally normal with no osseous, articular or muscular tenderness and no limitation or abnormality of motion in any joint except moderate limitation in the bilateral hips consistent with the history of injury and radiologic findings as detailed above. There is no posterior calf tenderness or Homans sign. The bilateral upper and lower extremities are distally neurovascularly intact with normal function. There are no other regions of involvement or signs of trauma, bodily injury, symptoms or physiologic deficit except as noted above. Last 24 Hours of Labs: Initial laboratory studies showed no significant or unexpected abnormalities pertinent to this evaluation except for changes consistent with her injury and prolonged immobilization. There was no suggestion of muscle ischemia or breakdown on the laboratory profile. No additional laboratory studies are required from an orthopaedic or trauma standpoint. Decisions regarding additional or serial laboratory evaluations for medical issues will be deferred to the primary medical team. Imaging Results: Abdomen/Pelvis CT Scan Without Contrast - [facility] Emergency Department Radiology - AP Pelvis (Pelvis 1 View Radiographic Series) - [facility] Radiology Summary Consultation Reading For All Of The Above Studies: On specialty orthopaedic consultation evaluation and review of the patients radiologic studies, I would agree with the radiology department readings with only a few additional details noted below and no significant change to the overall clinical or treatment implications of the reading. The CT scan show left comminuted, impacted inferior and superior medial rami fractures with parasymphyseal osseous column but not symphyseal intraarticular extension. There is also a left superolateral corner alar impaction fracture suggesting that the overall mechanism of injury was a lateral impaction (closing book) injury likely (although not definitively) with impact on the left. There is considerable osteopenia and areas of severe hypodensity consistent with osteoporosis in both sacral alar regions and there appears to be a cortical defect in the superolateral corner of the right ala which may represent either a traumatic or insufficiency fracture (particularly since the patient reports pain on that side as well as on the left). There is no gross abnormality in the sacrum. The inferior endplate L3 compression fracture is age indeterminate but appears more acute than chronic and probably has a central endplate defect which may be contributing to pain. The lumbar region is also diffusely osteopenic. The AP pelvis confirms the rami fractures and does not show any even subtle sign of instability or vertical shear which can sometimes be missed on CT. Neither the radiographs nor the CT scan suggest any other pelvic ring trauma or instability except as described above. There is no evidence of peripelvic or perispinal hematoma, acute canal compromise, significant soft tissue swelling or other abnormality. Review of other radiologic studies for this admission unrelated to this consult for lumbar and pelvis fractures are deferred to the assessment of the radiology, emergency department and medicine services. Assessment/Plan Assessment/Plan Paulina Rao is an 85 year old white female who sustained left impacted inferior and superior medial rami fractures with parasymphyseal osseous column but not symphyseal intraarticular extension as well as concomitant ipsilateral superolateral sacral ala impaction fracture consistent with an intermediate energy lateral impact closing book mechanism from a ground-level fall at her assisted living facility. She also may have a contralateral sacral alar insufficiency or traumatic secondary fracture as well as an acute inferior endplate L3 fracture detected on CT scan. This combination of multiple fractures likely accounts for her diffuse and poorly localized pain but still makes it difficult to optimize treatment and predict duration of required care. Physical therapy mobilization is recommended. She may be weight-bearing as tolerated. Walker ambulatory assistance is recommended until she can prove that she is steady with a cane with adequate symptom control and functional progression. No specific treatment is required for any of her fractures. Pain medication management will be deferred to her primary admitting medical team and standard fracture intermediate dose regimen should be sufficient. As long as she is able to mobilize, there is no orthopaedic indication for DVT prophylaxis and decisions in this regard will be deferred to the medical team. Inpatient rehabilitation is recommended. She may then be able to transition back to supervised assisted living once her pain is controlled and she meets criterion for that level of care. Unless severe pain or functional limitation continue for several weeks there is no definitive need for follow-up orthopaedic consultation evaluation although I would be pleased to see her in 6 weeks to obtain radiographs (AP pelvis and AP/LAT lumbar spine studies) if she would prefer and we can see her sooner if recovery is not progressing as expected. Lumbar bracing might be indicated if lower back pain becomes her primary and persistent limiting symptom. Osteoporosis assessment and management will be deferred to her primary care physician but would certainly be reasonable to the degree that they feel it is indicated. Given that no immediate or ongoing orthopedic care is required, the orthopedic consultation service will sign off at this time but will remain available for reconsultation at any time should it be helpful. Please not hesitate to contact Dr. Shah for any questions regarding the inpatient or follow-up orthopedic care of this patient. Thank you for consulting Dr. Shah and [facility] regarding Ms. Son orthopaedic management. Problem List: 1. Closed nondisplaced zone I fracture of sacrum 2. Traumatic compression fracture of L3 lumbar vertebra 3. Multiple closed stable fractures of ramus of left pubis 4. Closed fracture of left superior pubic ramus 5. Closed fracture of left inferior pubic ramus Other Findings/Comments: Physical Therapy for progressive weight-bearing as tolerated walker mobilization and ambulation. Copies To: DESTINY BHAGAT,AAMN Lopez Consult Acknowledgment - Thank you for your consult request. Attending MD Review Statement Attending Statement Attending MD Statement: examined this patient, discuss w/resident/PA/LOAN SERVICING SPECIALIST, agreed w/resident/PA/LOAN SERVICING SPECIALIST, reviewed EMR data (avail), discussed w/nursing, reviewed images Attending Assessment/Plan: See above Assessment/Plan Section (completed by consulting orthopaedic surgery attending, Aman Shah M.D.).
== END 2016-08-27 14:05 ==
LOC: ENRESERVTM → ENRESERVDT → ERH 07:12 → 2NB 16:17 → ENPENDDIS 16:17 → ERHI 16:17 → 2NB 18:12
PROVIDERS: Emergency Medicine; Internal Medicine; Student in an Organized Health Care Education/Training Program; ADMIT Internal Medicine
DX: S32.512A Fracture of superior rim of left pubis, initial encounter for closed fracture (principal); S32.592A Other specified fracture of left pubis, initial encounter for closed fracture; S32.10XA Unspecified fracture of sacrum, initial encounter for closed fracture; W17.89XA Other fall from one level to another, initial encounter; Y93.89 Activity, other specified; Y92.003 Bedroom of unspecified non-institutional (private) residence as the place of occurrence of the external cause; Z86.73 Personal history of transient ischemic attack (TIA), and cerebral infarction without residual deficits; I10 Essential (primary) hypertension; I47.1 Supraventricular tachycardia; F41.9 Anxiety disorder, unspecified; E03.9 Hypothyroidism, unspecified; M79.7 Fibromyalgia; I48.91 Unspecified atrial fibrillation; Z79.01 Long term (current) use of anticoagulants
CPT/HCPCS: 36415; 72170; 74176; 78582; 81001; 82436; 87086; 93005; 93010; 93306; 96361; 96372; 96374; 96375; 96376; 97110-GO; 97110-GP; 97112-GP; 97162-GP; 97530-GO; 97530-GP; A9540; A9558; G0378; J0131; J1644; J1650; J1885; J3490

== ENCOUNTER 2016-10-14 20:42 | Inpatient (IN) | payer OTHER ==
[~2016-10-14] VITALS: Ht 162.6 cm; Wt 49.9 kg
[~2016-10-14 20:42] MED LIST changes: +ASPIRIN EC325 M2 PO; +FLOVENT HFA12 G1 INH; +QUETIAPINE FUMA50 M1 PO; +SEROQUEL100 M1 PO; +SPIRIVA18 MCG INH
--- NOTE | 2016-10-14 20:50 | NUR ---
PT BIBA FROM [facility]ISTED [facility]IV[facility] FOR LOWER BACK PAIN THAT STARTED WHEN SHE WALKED OUT OF EHR BATHROOM. PT DENIES TRAUMA. PT HAS A PELVIC/SACRAL FX LAST MONTH AND WAS IN REHAB SINCE EARLIER THIS WEEK.
--- NOTE | 2016-10-14 20:59 | NUR ---
KIMMY BY ASHLEY Alva. PT C/O PAIN UPON VERTEBRAL PALPATION. PT HX: APHASIC. STATES PAIN CAME OUT OF NO WHERE. DENIES SOB, CHEST PAIN OR PAIN ANYWHERE ELSE.
--- NOTE | 2016-10-14 21:04 | ED NECK/BACK PAIN COMPLAINT ---
History of Present Illness General Chief Complaint: General Adult Stated Complaint: BIBA WITH BACK PAIN Source: patient Exam Limitations: clinical condition Vital Signs & Intake/Output Vital Signs & Intake/Output Vital Signs Date Time Temp Pulse Resp B/P Pulse O2 O2 Flow FiO2 Ox Delivery Rate 10/14 2100 Room Air 10/14 2049 97.5 78 18 164/77 94 ED Intake and Output 10/15 0000 10/14 1200 Intake Total 0 Output Total Balance 0 Intake, Oral 0 Allergies Coded Allergies: duloxetine (From CYMBALTA) (Severe, RASH 10/15/15) Benzodiazepines (UNKNOWN PER PT 10/15/15) clarithromycin (From BIAXIN) (UNKNOWN PER PT 10/15/15) lisinopril (UNKNOWN PER PT 10/15/15) meperidine (From DEMEROL) (UNKNOWN PER PT 10/15/15) verapamil (UNKNOWN PER PT 10/15/15) Uncoded Allergies: OPIOD (Severe, N/V, DIZZINESS 10/15/15) "SEDATIVES" (UNKNOWN PER PT 10/15/15) Reconcile Medications Acetaminophen (Tylenol) 325 MG TABLET 1 TAB PO Q6H PRN H/A OR TEMP 100.5> ( Reported) Amitriptyline HCl 10 MG TABLET 2 TAB PO QPM HEADACHE (Reported) Aspirin (Ecotrin*) 325 MG TABLET.DR 1 TAB PO DAILY STROKE (Reported) Cholecalciferol (Vitamin D3) (Vitamin D) 5,000 UNIT TABLET 1 TAB PO QHS SUPPLEMENT (Reported) Diltiazem HCl (Diltiazem 24HR Cd) 180 MG CAP.ER.24H 1 CAP PO DAILY HEART/BP ( Reported) Fluticasone Propionate (Flovent Hfa) 110 MCG/ACTUATION AER.W.ADAP 1 PUF INH ONCE EMPHYSEMA Magnesium Oxide 400 MG TABLET 1 TAB PO QHS SUPPLEMENT (Reported) Polyethylene Glycol 3350 (Miralax) 17 GM POWD.PACK 1 PAC PO DAILY PRN GI ( Reported) dissolve in water Quetiapine Fumarate 50 MG TABLET 1 TAB PO BID DEPRESSION (Reported) Sennosides/Docusate Sodium (Senna S Tablet) 1 EACH TABLET 2 TAB PO QHS GI ( Reported) Thyroid ([place] Thyroid) 15 MG TABLET 1 TAB PO DAILY THYROID (Reported) Tiotropium [place] (Spiriva) 18 MCG CAP.W.DEV 1 CAP INH DAILY LUNG HEALTH Tramadol HCl 50 MG TABLET 1 TAB PO QAM CHRONIC PAIN (Reported) Triage Note: PT BIBA FROM [facility] FOR LOWER BACK PAIN THAT STARTED WHEN SHE WALKED OUT OF EHR BATHROOM. PT DENIES TRAUMA. PT HAS A PELVIC/SACRAL FX LAST MONTH AND WAS IN REHAB SINCE EARLIER THIS WEEK. Triage Nurses Notes Reviewed? yes Onset: Abrupt Duration: hour(s):, constant, continues in ED Timing: recent history Quality/Severity: moderate, severe Loss of Consciousness: no loss of consciousness HPI: 85-year-old female comes into emergency room with complaints of sudden onset back pain when she was standing pivoting going into the bed. Patient was seen here in the hospital over a month ago and had pelvic fractures and sacral fracture from a fall. Patient was initially awake he and then went to assisted living facility. Currently she has been walking with no difficulty with a walker for the past few weeks. Tonight was a setback and sudden onset of pain in patient has not been able to ambulate since it occurred. She denies any abdominal pain chest pain. Denies any shortness of breath. Pain is continuous. Severe in nature. (JEFF RAMIREZ,INÉS) Past History Travel History Traveled to [place] past 21 day No Medical History Any Pertinent Medical History? 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 Refer elsewhere in this and other documents for additional details. There is no other information in these categories that I am aware of and no additional information was provided by the patient on consultation evaluation today which is directly pertinent to the patient's orthopaedic consultation evaluation, assessment, recommendations or care. History of MRSA: No History of VRE: No History of CDIFF: No Surgical History Surgical History: appendectomy, hysterectomy, TONSILLECTOMY X 2 Psychosocial History Who do you live with Other (see notes) Services at Home None What is your primary language Portuguese Tobacco Use: Cognitive Impairment ETOH Use: denies use Family History Family History, If Any: FATHER (dementia). Relation not specified for: FH: bladder cancer FH: breast cancer Hx Contributory? No (INÉS CROSS) Review of Systems Review of Systems Constitutional: Reports: no symptoms. Eyes: Reports: no symptoms. Ears, Nose, Throat, Mouth: Reports: no symptoms. Respiratory: Reports: no symptoms. Cardiovascular: Reports: no symptoms. Gastrointestinal/Abdominal: Reports: no symptoms. Musculoskeletal: Reports: see HPI. Skin: Reports: no symptoms. Neurological/Psychological: Reports: no symptoms. All Other Systems: Reviewed and Negative (INÉS CROSS) Physical Exam Physical Exam General Appearance: well developed/nourished, moderate distress Head: atraumatic Eyes: Bilateral: normal appearance. Ears, Nose, Throat, Mouth: hearing grossly normal, moist mucous membrane Neck: normal inspection, full range of motion Respiratory: normal breath sounds, no respiratory distress Cardiovascular: regular rate/rhythm Gastrointestinal: soft, non-tender Back: normal inspection, vertebral tenderness, decreased range of motion Extremities: normal range of motion Neurologic/Psych: awake, alert, oriented x 3, normal mood/affect Skin: intact, normal color, warm/dry Comments: 5 out of 5 strength bilateral dorsiflexion of great toe, sensation intact distally, (INÉS CROSS) Progress Differential Diagnosis: AAA, aortic dissection, C spine injury, carotid dissection, cauda equina syn, herniated disc, myofascial strain, pyelo/UTI, sciatica, spinal cord inj, thoracic outlet syn, T/L spine injury, ureterolithiasis, vertebral fracture, Plan of Care: Orders Procedure Date/time Status Regular Diet 10/15 B Active Lab Add-on Test 10/15 2339 Active Lab Add-on Test 10/14 2338 Active TRC EVALUATION (GEN) 10/14 2336 Active OXYGEN SETUP (GEN) 10/14 2336 Active Pathway - chart 10/14 2336 Active House Staff 10/14 2336 Active Patient Data 10/14 2336 Active Code Status 10/14 2336 Active OXYGEN SETUP (GEN) 10/14 2326 Active Saline Lock 10/[address] in observation 10/14 2326 Active Vital Signs 10/14 2326 Active Activity/Ambulation 10/14 2326 Active Code Status 10/14 2326 Complete Patient Data 10/14 2318 Active THYROID STIMULATING HORMONE 10/14 2117 Active MAGNESIUM 10/14 2117 Active CREATINE PHOSPHOKINASE 10/14 2117 Active NIH Stroke Scale 10/14 2109 Active TROPONIN LEVEL 10/14 2102 Active COMPREHENSIVE METABOLIC PANEL 10/14 2102 Active CBC WITHOUT DIFFERENTIAL 10/14 2102 Complete EKG 10/14 2102 Active VTE Mechanical Prophylaxis 10/14 UNK Active Vital Signs 10/14 UNK Active MISTAKE 10/14 UNK Active Intake & Output 10/14 UNK Active Laboratory Tests 10/14/162117: Anion Gap 9, Estimated GFR > 60, BUN/Creatinine Ratio 21.7, Glucose 108 H, Calcium 9.7, Magnesium Pending, Total Bilirubin 0.4, AST 55 H, ALT 47, Alkaline Phosphatase 163 H, Creatine Kinase Pending, Troponin I < 0.01, Total Protein 7.3, Albumin 3.8, Globulin 3.5, Albumin/Globulin Ratio 1.1, TSH Pending, Free T3 Pending, CBC w Diff NO MAN DIFF REQ, RBC 4.64, MCV 85.8, MCH 27.9, RDW 14.1, MPV 7.3 L, Gran % 60.7, Lymphocytes % 22.9, Monocytes % 13.7 H, Eosinophils % 2.2, Basophils % 0.5, Absolute Granulocytes 4.5, Absolute Lymphocytes 1.7, Absolute Monocytes 1.0 H, Absolute Eosinophils 0.2, Absolute Basophils 0, PUBS MCHC 32.5 L Diagnostic Imaging: Viewed by Me: CT Scan. Discussed w/RAD: CT Scan. Radiology Impression: SERVICE DATE: 10/14/16 EXAM TYPE: CAT - CT LUMB SPINE WO IV CONTRAST EXAMINATION: CT LUMBAR SPINE WITHOUT CONTRAST CLINICAL INFORMATION: Acute midline back pain. Recent fractures. COMPARISON: CT scan of the lumbar spine 07/26/2013. CT scan of the abdomen and pelvis 08/24/2016. TECHNIQUE: Helical non-contrast CT images were obtained through the lumbar spine and 1.25 and 2.5 mm axial reconstructions were reviewed along with sagittal and coronal MPRs. DLP: 809.43 mGy-cm FINDINGS: There is a dextroscoliosis in the thoracolumbar region. There is marked narrowing of intervertebral disc height at L4-L5, demonstrated on prior imaging. There is a new compression fracture of the body of T12 superiorly when compared to the most recent prior study. There is loss of central vertebral body height of approximately 30%. The superior aspect of the body has increased density. There is also invagination of disc into the inferior endplate of L3 consistent with an inferior endplate fracture, which is demonstrated on the more recent prior study, but was not visualized on the remote lumbar spine CT scan. There is loss of approximately 25% of vertebral body height inferiorly. Vertebral body heights elsewhere are maintained. There is increase in the extent of the fracture of the left sacral ala. There has been further fragmentation of the superior and inferior left pubic rami fractures anteriorly. Bone mineralization is diffusely decreased. There is extensive atheromatous calcification of the aorta and iliac vessels. There is a right extrarenal pelvis. There is extensive stool in the large bowel, and the urinary bladder is distended. SPINAL LEVELS: T11-T12: There is posterior protrusion of the superior body of T12 into the spinal canal with loss of approximately 15%. There is a diffuse disc bulge posteriorly. The neural foramina are patent. T12- L1: There is a broad-based posterior disc protrusion. There is bilateral facet arthropathy. There is no central stenosis and the neural foramina are patent. L1 -L2: There is bilateral facet arthropathy. There is a diffuse disc bulge. There is no central stenosis. There is mild left foraminal narrowing. L2-L3: There is bilateral facet arthropathy with ligamenta flava hypertrophy. There are inferior foraminal disc protrusions without definite nerve root encroachment. There is no significant central stenosis. L3-L4: There is moderate to severe bilateral facet arthropathy with ligamenta flava hypertrophy. There is a diffuse disc bulge with a more focal protrusion extending into the left neural foramen. There is moderate central stenosis. L4-L5: There is severe bilateral facet arthropathy and ligamenta flava hypertrophy. There is a posterior disc osteophyte complex extending into the right greater than left neural foramina. There is mild central stenosis. L5-S1: There is moderate bilateral facet arthropathy. Posterior disc contour is normal. There is mild right foraminal narrowing. There is no central stenosis. IMPRESSION: 1. There has been interval development of a compression fracture of the body of T12, new compared to recent imaging. 2. There is a stable invagination of disc into the inferior endplate of L3 compared to the most recent prior study, consistent with an endplate fracture. 3. There are progressive sequelae of fractures of the left upper sacrum and superior inferior left pubic rami. 4. The bones are diffusely osteoporotic. DICTATED BY: YASSINE BAUER MD DATE/TIME DICTATED:10/14/162202 PERMIT SPECIALIST:PETER DATE/TIME TRANSCRIBED:10/14/162202 Initial ED EKG: normal intervals, normal p-waves, normal sinus rhythm, rate (72) (INÉS CROSS) Departure Departure Disposition: STILL A PATIENT Condition: Stable Clinical Impression Primary Impression: Compression fracture of lumbar vertebra Secondary Impressions: Intractable pain Referrals: PAPA BHAGAT,KELI Anand (PCP/Family) Departure Forms: Customer Survey General Discharge Information Admission Note Spoke With: JORJE LITTLEJOHN MD Observation Note Spoke With: JORJE LITTLEJOHN MD Physician Advisor Notified: HAY CALLAHAN DO Place Patient In: Non-ED OBS Care Area Rationale for Observation: My rational for observation is as follows . Patient will require IV pain control. Physical therapy consultation. Patient not able to ambulate here in the emergency room at all. Attempt failed. Patient will likely require MRI of the lower back tomorrow. (INÉS CROSS) PA/DRAMA PROFESSOR Co-Sign Statement Statement: ED Attending supervision documentation- x I saw and evaluated the patient. I have also reviewed all the pertinent lab results and diagnostic results. I agree with the findings and the plan of care as documented in the PA's/DRAMA PROFESSOR's documentation. [] I have reviewed the ED Record and agree with the PA's/DRAMA PROFESSOR's documentation. [] Additions or exceptions (if any) to the PAs/DRAMA PROFESSOR's note and plan are summarized below: [] (SINGH BHAGAT,RAFAT)
--- NOTE | 2016-10-14 21:26 | NUR ---
PT MEDICATED WITH DILAUDID PER EMAR. PT TOLERATED WELL. AWAITING CAT SCAN
[2016-10-14 21:34] LABS: ABSOLUTE BASOPHIL COUNT 0 /CUMM (0.0-0.2); ABSOLUTE EOSINOPHIL COUNT 0.2 /CUMM (0.0-0.7); ABSOLUTE GRANULOCYTE CT 4.5 /CUMM (1.4-6.5); ABSOLUTE LYMPH COUNT 1.7 /CUMM (1.2-3.4); BASOPHIL % 0.5 % (0.0-2.0); EOSINOPHIL % 2.2 % (0-5); GRANULOCYTE % 60.7 % (42.2-75.2); HEMATOCRIT 39.9 % (37-47); MEAN CORPUSCULAR HGB 27.9 PG (27.0-31.0); MEAN CORPUSCULAR HGB CONC 32.5 G/DL (33.0-37.0); MEAN CORPUSCULAR VOLUME 85.8 FL (81.0-99.0); MEAN PLATELET VOLUME 7.3 FL (7.4-10.4); PLATELET COUNT 262 /CUMM (130-400); RBC DISTRIBUTION WIDTH 14.1 % (11.5-14.5); RED BLOOD CELL CT 4.64 /CUMM (4.20-5.40); WHITE BLOOD CELL COUNT 7.4 /CUMM (4.8-10.8)
--- NOTE | 2016-10-14 21:44 | NUR ---
PT TO CAT SCAN
--- NOTE | 2016-10-14 22:20 | CT SCAN REPORT ---
EXAMINATION: CT LUMBAR SPINE WITHOUT CONTRAST CLINICAL INFORMATION: Acute midline back pain. Recent fractures. COMPARISON: CT scan of the lumbar spine 07/26/2013. CT scan of the abdomen and pelvis 08/24/2016. TECHNIQUE: Helical non-contrast CT images were obtained through the lumbar spine and 1.25 and 2.5 mm axial reconstructions were reviewed along with sagittal and coronal MPRs. DLP: 809.43 mGy-cm FINDINGS: There is a dextroscoliosis in the thoracolumbar region. There is marked narrowing of intervertebral disc height at L4-L5, demonstrated on prior imaging. There is a new compression fracture of the body of T12 superiorly when compared to the most recent prior study. There is loss of central vertebral body height of approximately 30%. The superior aspect of the body has increased density. There is also invagination of disc into the inferior endplate of L3 consistent with an inferior endplate fracture, which is demonstrated on the more recent prior study, but was not visualized on the remote lumbar spine CT scan. There is loss of approximately 25% of vertebral body height inferiorly. Vertebral body heights elsewhere are maintained. There is increase in the extent of the fracture of the left sacral ala. There has been further fragmentation of the superior and inferior left pubic rami fractures anteriorly. Bone mineralization is diffusely decreased. There is extensive atheromatous calcification of the aorta and iliac vessels. There is a right extrarenal pelvis. There is extensive stool in the large bowel, and the urinary bladder is distended. SPINAL LEVELS: T11-T12: There is posterior protrusion of the superior body of T12 into the spinal canal with loss of approximately 15%. There is a diffuse disc bulge posteriorly. The neural foramina are patent. T12-L1: There is a broad-based posterior disc protrusion. There is bilateral facet arthropathy. There is no central stenosis and the neural foramina are patent. L1-L2: There is bilateral facet arthropathy. There is a diffuse disc bulge. There is no central stenosis. There is mild left foraminal narrowing. L2-L3: There is bilateral facet arthropathy with ligamenta flava hypertrophy. There are inferior foraminal disc protrusions without definite nerve root encroachment. There is no significant central stenosis. L3-L4: There is moderate to severe bilateral facet arthropathy with ligamenta flava hypertrophy. There is a diffuse disc bulge with a more focal protrusion extending into the left neural foramen. There is moderate central stenosis. L4-L5: There is severe bilateral facet arthropathy and ligamenta flava hypertrophy. There is a posterior disc osteophyte complex extending into the right greater than left neural foramina. There is mild central stenosis. L5-S1: There is moderate bilateral facet arthropathy. Posterior disc contour is normal. There is mild right foraminal narrowing. There is no central stenosis. IMPRESSION: 1. There has been interval development of a compression fracture of the body of T12, new compared to recent imaging. 2. There is a stable invagination of disc into the inferior endplate of L3 compared to the most recent prior study, consistent with an endplate fracture. 3. There are progressive sequelae of fractures of the left upper sacrum and superior inferior left pubic rami. 4. The bones are diffusely osteoporotic.
--- NOTE | 2016-10-14 23:00 | NUR ---
PT ASSISTED ONTO BEDPAN, VOIDED APPROX 400MLS CLEAR YELLOW URINE
--- NOTE | 2016-10-14 23:28 | History & Physical ---
MAINOR CHAUDHARI 10/14/16 2327: General Information and HPI MD Statement: I have seen and personally examined HENNA GONZALEZ and documented this H&P. The patient is a 85 year old F who presented with a patient stated chief complaint of low back pain. Source of Information: patient, family, old records Exam Limitations: unable to give history, patient's age, not alert/orientated, confusion, dementia History of Present Illness: This is a 85-year-old female with past medical history significant for vertigo, atypical migraine, headache, meningioma, Lyme disease, stroke in 2016 with no residual neurologic deficits, dementia, atrial fibrillation not on rate control agents and anticoagulants, hypertension, supraventricular tachycardia on Cardizem, COPD, H pylori infection, fibromyalgia, osteoarthritis, osteoporosis, fractured knee, scoliosis, anxiety, hypothyroidism, hemangioma of brain, depression, sacral and pubic rami fractures, osteoporosis presented to emergency department with sudden onset low back pain since this morning. offnote patient was admitted at [facility] in August 2016 after an unwitnessed mechanical fall status post pelvic fracture. She was discharged to short-term rehabilitation. She received physical therapy and she was on weight bearing status as tolerated. She was discharged to assisted living from rehabilitation. Patient reports sudden onset low back pain, 10 out of 10, sharp and achy, radiating to her legs. She denied any trauma or fall. She denied any numbness, tingling sensation. She denied weakness or sensory changes. No loss of consciousness. No neurologic deficits. Denied difficulty passing urine. Patient denied any fever, chills, headache, weakness or sensory changes, gait or vision abnormalities. She denied any chest pain, racing of heart, loss of consciousness, seizures, vertigo, tinnitus, short of breath, cough, abdominal pain, nausea, vomiting. Patient has long-standing history of constipation. Denied any lower extremity swelling. No sick contacts or travel history. Denied smoking or alcohol or illicit drug abuse. Allergies/Medications Allergies: Coded Allergies: duloxetine (From CYMBALTA) (Severe, RASH 10/15/15) Benzodiazepines (UNKNOWN PER PT 10/15/15) clarithromycin (From BIAXIN) (UNKNOWN PER PT 10/15/15) lisinopril (UNKNOWN PER PT 10/15/15) meperidine (From DEMEROL) (UNKNOWN PER PT 10/15/15) verapamil (UNKNOWN PER PT 10/15/15) Uncoded Allergies: OPIOD (Severe, N/V, DIZZINESS 10/15/15) "SEDATIVES" (UNKNOWN PER PT 10/15/15) Compliance With Home Meds: GOOD Past History Travel History Traveled to [place] past 21 day No Medical History Neurological: vertigo, ATYPICAL MIGRAINE HEADACH MENINGIOMA LYME DISEASE STROKE 2015 EENT: NONE Cardiovascular: AFIB, hypertension, SVT Respiratory: COPD Gastrointestinal: H PYLORI Hepatic: NONE Renal: NONE Musculoskeletal: fibromyalgia, fracture, osteoarthritis, osteoporosis, SCOLIOSIS FX KNEE Psychiatric: anxiety Endocrine: hypothyroidism Blood Disorders: NONE Cancer(s): HEMANGIOMA OF 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 Refer elsewhere in this and other documents for additional details. There is no other information in these categories that I am aware of and no additional information was provided by the patient on consultation evaluation today which is directly pertinent to the patient's orthopaedic consultation evaluation, assessment, recommendations or care. History of MRSA: No History of VRE: No History of CDIFF: No Surgical History Surgical History: appendectomy, hysterectomy, TONSILLECTOMY X 2 Past Family/Social History Family History Relations & Conditions if any FATHER (dementia). Relation not specified for: FH: bladder cancer FH: breast cancer Psychosocial History Who Do You Live With? grand jrughmisha Services at Home: None Smoking Status: Never Smoked ETOH Use: denies use Illicit Drug Use: denies illicit drug use Functional Ability ADLs Independent: dressing, eating, toileting, bathing. Ambulation: independent IADLs Independent: shopping, housework, finances, food prep, telephone, transportation , medication admin. Review of Systems Review of Systems Constitutional: Denies: chills, diaphoresis, fever, malaise, weakness, unexplained weight loss. EENTM: Denies: no symptoms. Cardiovascular: Denies: chest pain, edema, orthopena, palpitations, peripheral edema, syncope. Respiratory: Denies: cough, hemoptysis, orthopnea, short of breath, sputum production. GI: Reports: constipation. Denies: abdominal pain, bloating, diarrhea, nausea, bloody stool. Genitourinary: Denies: frequency, hematuria. Musculoskeletal: Reports: back pain. Denies: neck pain. Skin: Denies: no symptoms. Neurological/Psychological: Reports: confusion, dementia. Denies: ataxia, depressed, headache, numbness, tingling, tremors. Exam & Diagnostic Data Last 24 Hrs of Vital Signs/I&O Vital Signs Date Time Temp Pulse Resp B/P Pulse O2 O2 Flow FiO2 Ox Delivery Rate 10/15 0209 Room Air 10/15 0131 97.9 79 22 146/60 97 Room Air 10/15 0123 79 146/60 10/14 2101 Room Air 10/14 2049 97.5 78 18 164/77 94 Intake & Output 10/15 0800 10/15 0000 10/14 1600 Intake Total 0 Output Total 400 Balance -400 0 Intake, Oral 0 Output, Urine 400 Patient 49.895 kg Weight Physical Exam General Appearance Alert, Cooperative, No Acute Distress, not oriented to time, place Skin No Rashes, No Breakdown, No Significant Lesion HEENT Atraumatic, PERRLA, EOMI, Mucous Membr. moist/pink Neck Supple, No JVD Lymphatic Axillary nl, Cervical nl Cardiovascular Regular Rate, Normal S1, Normal S2, No Murmurs Lungs Normal Air Movement Abdomen Normal Bowel Sounds, Soft, No Tenderness Neurological Normal Speech, Strength at 5/5 X4 Ext, Normal Tone, Sensation Intact, Cranial Nerves 3-12 NL, Reflexes 2+ Extremities No Clubbing, No Cyanosis, No Edema, Normal Pulses Vascular Normal Pulses Diagnostic Data EKG Results Sinus rhythm, rate 73, PACs, left bundle branch block Assessment/Plan Assessment: This is a 85-year-old female with past medical history significant for vertigo, atypical migraine, headache, meningioma, Lyme disease, stroke in 2016 with no residual neurologic deficits, dementia, atrial fibrillation not on rate control agents and anticoagulants, hypertension, supraventricular tachycardia on Cardizem, COPD, H pylori infection, fibromyalgia, osteoarthritis, osteoporosis, fractured knee, scoliosis, anxiety, hypothyroidism, hemangioma of brain, depression, sacral and pubic rami fractures, osteoporosis presented to emergency department with sudden onset low back pain since this morning. offnote patient was admitted at [facility] in August 2016 after an unwitnessed mechanical fall status post pelvic fracture. She was discharged to short-term rehabilitation. She received physical therapy and she was on weight bearing status as tolerated. She was discharged to assisted living from rehabilitation. Vital signs on admission: Temperature 97.5, pulse rate 78, respiratory rate 18, blood pressure 164/77, oxygen saturation 94% on room air. Pertinent lab: CBC and BMP unremarkable. AST 55, alkaline phosphatase 163, negative troponin, TSH 4.840. CT lumbar spine without IV contrast: Medial compression fraction of the body of T12,stable invagination of disc into the inferior endplate of L3 compared to the most recent prior study, consistent with an endplate fracture.There are progressive sequelae of fractures of the left upper sacrum and superior inferior left pubic rami. Diffuse osteoporosis. EKG: Sinus rhythm, rate 73, PACs, left bundle branch block. Problem list 1. Intractable back pain 2. New EKG changes 3. Migrainous headache 4. Constipation 5. CVA history 6. Atrial fibrillation 7. SVT 8. COPD 9. Depression Intractable back pain Patient presented to emergency department with acute onset of low back pain, 10 out of 10, sharp and achy, radiating to legs.She denied any trauma or fall. She denied any numbness, tingling sensation. She denied weakness or sensory changes. No loss of consciousness. No neurologic deficits. Denied difficulty passing urine. Likely secondary to new compression fraction in a patient with diffuse osteoporosis. No neurology deficits were noted. * Will order MRI of thoracic spine for further evaluation. * Pain management with Tylenol and tramadol for mild to moderate pain and Percocet for severe pain * will avoid morphine or Dilaudid prevent confusion. * Would bladder scan the patient and initiate straight cath protocol if residual urines above 400 mL. * Patient would benefit from a DEXA scan and osteoporosis workup outpatient. Vitamin D level 59.8 (08/25/2016). * Will maintain the patient on aggressive bowel regimen while on pain medications to avoid constipation. * Patient will need PT evaluation. New EKG changes: EKG showed left bundle branch block which is new compared to previous EKG. Patient is asymptomatic without chest pain and troponin is negative. * Will repeat EKG in the morning. * Consider cardiology consult. Migrainous headache Continue home dose of amitriptyline Stroke Continue aspirin Supraventricular tachycardia Continue Cardizem Constipation MiraLAX and senna as necessary COPD Continue home medications fluticasone and Spiriva Depression continue Seroquel DVT prophylaxis heparin DNR and DNI Regular diet Mild to moderate pain pathway Tylenol and tramadol Severe pain pathway Percocet As Ranked By This Provider Problem List: 1. Intractable pain Core Measures/Miscellaneous Acute Coronary Syndrome ACS Diagnosis: No Cerebrovascular Accident CVA/TIA Diagnosis: No Congestive Heart Failure CHF Diagnosis: No Venous Thromboembolism VTE Risk Factors: Age > 40 No [facility] VTE prophylaxis d/t: No contraindications No VTE Pharm Prophylaxis d/t: No contraindications VTE Diagnosis: No VTE Type: NONE VTE Confirmed by (Test): NONE Severe Sepsis Severe Sepsis Present: No Septic Shock Septic Shock Present: No Miscellaneous Documentation Attending Case Discussed With: JORJE LITTLEJOHN MD Primary Care Physician: KELI ELAM MD Patient sees these Specialists none Level of Patient Care: General Medicine ROSALBA TORRES 10/14/16 2334: General Information and HPI Allergies/Medications Home Med list Acetaminophen (Tylenol) 325 MG TABLET 1 TAB PO Q6H PRN H/A OR TEMP 100.5> ( Reported) Amitriptyline HCl 10 MG TABLET 2 TAB PO QPM HEADACHE (Reported) Aspirin (Ecotrin*) 325 MG TABLET.DR 1 TAB PO DAILY STROKE (Reported) Cholecalciferol (Vitamin D3) (Vitamin D) 5,000 UNIT TABLET 1 TAB PO QHS SUPPLEMENT (Reported) Diltiazem HCl (Diltiazem 24HR Cd) 180 MG CAP.ER.24H 1 CAP PO DAILY HEART/BP ( Reported) Fluticasone Propionate (Flovent Hfa) 110 MCG/ACTUATION AER.W.ADAP 1 PUF INH ONCE EMPHYSEMA Magnesium Oxide 400 MG TABLET 1 TAB PO QHS SUPPLEMENT (Reported) Polyethylene Glycol 3350 (Miralax) 17 GM POWD.PACK 1 PAC PO DAILY PRN GI ( Reported) dissolve in water Quetiapine Fumarate (Seroquel) 25 MG TABLET 1 TAB PO QAM Hallucination/anxiety (Reported) Quetiapine Fumarate (Seroquel) 50 MG TABLET 1 TAB PO QPM Hallucination/anxiety (Reported) Sennosides/Docusate Sodium (Senna S Tablet) 1 EACH TABLET 2 TAB PO QHS GI ( Reported) Thyroid (Kasson Thyroid) 15 MG TABLET 1 TAB PO DAILY THYROID (Reported) Tiotropium Mchenry (Spiriva) 18 MCG CAP.W.DEV 1 CAP INH DAILY LUNG HEALTH Tramadol HCl 50 MG TABLET 1 TAB PO QAM CHRONIC PAIN (Reported) Resident Review Statement Resident Statement: examined this patient, discussed with internal affairs investigator, agreed with internal affairs investigator, discussed with family, reviewed images Other Findings: This is an 85-year-old lady with past medical history significant for atrial fibrillation not cyanotic blood pressure, hypertension, SVT, fibromyalgia, CVA, COPD, migraine who was brought to the hospital from an assisted living after an episode of back pain. Patient is not able to provide detailed history; part of history obtained from patient's son who is present at bedside. Patient denies any weakness, paresthesia in lower extremities, difficulty urinating or having bowel movement. Vital signs on admission: Temperature 97.5, pulse rate 78, respiratory rate 18, blood pressure 164/77, oxygen saturation 94% on room air. Physical exam at the time of admission: AAO 1 (person only), cooperative, NAD. HEENT: HNCAT, PERRLA, EOMI, moist mucous membrane, normal pharynx. Neck: Supple , no JVD, no lymphadenopathy. CV: RRR, normal memory. Lungs: CTA BL. Abdomen: Normal bowel sounds, soft, NT, ND. Extremities: No edema, pulses normal and symmetrical, mild tenderness to palpation on left ankle, no calf tenderness. Skin: No ecchymosis or skin lesion. Neurology: AAO 1, Normal speech, cranial nerves III-12 intact, strength and reflexes intact. Pertinent lab: CBC and BMP unremarkable. AST 55, alkaline phosphatase 163, negative troponin, TSH 4.840, free T4 [address] lumbar spine without IV contrast: Compression fraction of the body of T12, stable invagination of disc into the inferior endplate of L3 compared to the most recent prior study, consistent with an endplate fracture.There are progressive sequelae of fractures of the left upper sacrum and superior inferior left pubic rami. Diffuse osteoporosis. EKG: Sinus rhythm, rate 73, PACs, left bundle branch block Problem list/plan: # Intractable back pain: Likely secondary to new compression fraction in a patient with diffuse osteoporosis. No neurology deficits were noted. Will order MRI of thoracic spine for further evaluation. Pain management with Tylenol and tramadol for mild to moderate pain and Percocet for severe pain; would avoid morphine or Dilaudid to prevent confusion. Would bladder scan the patient and initiate straight cath protocol if residual urines above 400 mL. Patient would benefit from a DEXA scan and osteoporosis workup as outpatient. Vitamin D level 59.8 (08/25/2016). Will maintain the patient on aggressive bowel regimen while on pain medications to avoid constipation. Patient will need PT evaluation. #New EKG changes: EKG showed left bundle branch block which is new compared to previous EKG. Patient is asymptomatic without chest pain and troponin is negative. Will repeat EKG in the morning. Consider cardiology consult. #Will continue home medications including amitriptyline, aspirin, diltiazem, Seroquel, thyroid supplement. #DVT prophylaxis with subcutaneous heparin. #Patient is DNI DNR JORJE LITTLEJOHN 10/15/16 0412: Attending MD Review Statement Attending Statement Attending MD Statement: examined this patient, discuss w/resident/PA/RETURNER, agreed w/resident/PA/RETURNER, discussed with family, reviewed EMR data (avail), reviewed images, amended to note Attending Assessment/Plan: CC: Acute back pain PMH: A. fib not on anticoagulation, HTN, SVT, COPD, fibromyalgia, CVA, migraine Patient was admitted in [facility] after accidental fall from August 24 to August 27, was discharged to [facility], patient recently started ambulating, was discharged to assisted living. Patient comes back from assisted living for sudden onset sharp back pain when aide was around. No obvious trauma was noticed , no fall. Patient could not ambulate after that episode. denies any weakness, tingling numbness in lower extremities, no difficulty passing urine but inability to ambulate was because of back pain. Currently patient denies pain, patient is poor historian. Son at bedside providing history. Vitals: Afebrile, pulse, RR, BP, O2 saturation within acceptable range. On exam: A O 1, long pauses while talking, decreased recall, cooperative, no acute distress, neck supple, no JVD, no lymphadenopathy, mucosa moist, bilateral lower extremity strength intact, no sensation deficit. no dependent edema, no obvious skin rashes or inflammation CVS: S1-S2, irregular. RS: Clear to auscultate bilaterally. Abdomen: Soft, NT, ND, bowel sounds present. Peripheral pulses perfusion normal. Labs: CVC, BMP unremarkable. AST 55, alkaline phosphatase 163. Troponin less than 0.01. CT lumbar spine without IV contrast: 1. There has been interval development of a compression fracture of the body of T12, new compared to recent imaging. 2. There is a stable invagination of disc into the inferior endplate of L3 compared to the most recent prior study, consistent with an endplate fracture. 3. There are progressive sequelae of fractures of the left upper sacrum and superior inferior left pubic rami. 4. The bones are diffusely osteoporotic. A and P #1 intractable back pain: No obvious trauma, pain started suddenly, no obvious neurological deficit, CT imaging shows new compression fracture at T12 and the location of pain. Patient had diffuse osteoporotic changes, trivial trauma may have precipitated the fracture. Will need MRI thoracic spine to evaluate him. Adequate pain control with when necessary Percocet for severe pain, tramadol and acetaminophen for mild to moderate pain, avoid morphine or Dilaudid, patient is already confused after getting 2 doses of Dilaudid in ER. Transiently patient was not urinating in ER but then did not have any problems thereafter. But bladder scan would be beneficial. PT evaluation, consult case management for STIR evaluation. I had detailed discussion with son he was very curious about why weren't repeated fractures happened currently even without any trauma. I explained about osteoporosis. #[address] patient has constipation: Continue by mouth Dulcolax for now. , Continue daily MiraLAX, docusate. #3 chronic stable conditions with A. fib, SVT, HTN, COPD, migraine continue all her home medications.
--- NOTE | 2016-10-15 00:12 | NUR ---
PT BED ASSIGNMENT 209-2
[2016-10-15] MEDS ORDERED: SEROQUEL25 M1 PO (00:22)
[2016-10-15] MEDS ORDERED: SEROQUEL50 M1 PO (00:22)
--- NOTE | 2016-10-15 00:23 | NUR ---
REPORT GIVEN TO JAVIER JACKSON
[2016-10-15 01:23] VITALS: BP 146/60
[2016-10-15 01:31] VITALS: BP 146/60
--- NOTE | 2016-10-15 03:14 | NUR ---
NURSE NOTE: REPORT RECEIVED FROM ROB IN ED. PT CAME UP WITH SON AND ED STAFF. PT AAOX1, RA. IV ACCESS. PT ORIENTED TO ROOM. CALL CARVALHO IN REACH, FALL PRECAUTIONS IN PLACE. VSS. WILL CONTINUE TO MONITOR.
[2016-10-15 06:26] VITALS: BP 140/60
--- NOTE | 2016-10-15 07:19 | PN- Housestaff ---
JUANIS BHAGAT,[facility] 10/15/16 0719: Subjective Follow-up For: low back pain. Subjective: Afebrile, hemodynamically stable, saturating well on room air. No acute overnight events reported. Patient looks mildly confused. Patient reported that her pain is fairly controlled. She denies any current complaints. Review of Systems Constitutional: Reports: see HPI. Objective Last 24 Hrs of Vital Signs/I&O Vital Signs Date Time Temp Pulse Resp B/P Pulse O2 O2 Flow FiO2 Ox Delivery Rate 10/15 1434 98.7 99 20 164/74 96 10/15 1413 Room Air Room Air 10/15 1101 Room Air Room Air 10/15 0626 98.1 71 20 140/60 97 Room Air 10/15 0209 Room Air 10/15 0131 97.9 79 22 146/60 97 Room Air 10/15 0123 79 146/60 10/14 2101 Room Air 10/14 2050 97.5 78 18 164/77 94 Intake & Output 10/15 1600 10/15 0800 10/15 0000 Intake Total 600 240 0 Output Total 200 700 Balance 400 -460 0 Intake, IV 0 Intake, Oral 600 240 0 Output, Urine 200 700 Patient 49.895 kg Weight Physical Exam General Appearance: Alert, Oriented X3, Cooperative, No Acute Distress Skin: No Rashes HEENT: Atraumatic, PERRLA, EOMI, Mucous Membr. moist/pink Cardiovascular: Regular Rate, Normal S1, Normal S2, No Murmurs Lungs: Clear to Auscultation Abdomen: Soft, No Tenderness Neurological: Normal Speech Extremities: No Clubbing, No Cyanosis, No Edema Current Medications: Current Medications Sig/Ulices Start time Last Medication Dose Route Stop Time Status Admin Acetaminophen 650 MG Q6 PRN 10/15 0100 AC PO Amitriptyline HCl 20 MG QPM 10/15 2200 AC PO Aspirin Buffered 325 MG DAILY 10/15 1000 AC 10/15 PO 0900 Bisacodyl 5 MG DAILY 10/15 1000 AC 10/15 PO 0900 Diazepam 0 .STK-MED ONE 10/15 2243 DC .ROUTE Diazepam 3 MG ONCE ONE 10/14 2229 DC 10/14 IV 10/14 Diltiazem HCl 180 MG DAILY 10/15 1000 AC 10/15 PO 0900 Fluticasone 1 PUF DAILY 10/15 1000 AC 10/15 Propionate INH 0900 Heparin Sodium 5,000 UNIT Q8 10/15 0600 AC 10/15 (Porcine) SC 1354 Hydromorphone HCl 0 .STK-MED ONE 10/15 2243 DC .ROUTE Hydromorphone HCl 0.4 MG ONCE ONE 10/14 2229 DC 10/14 IV 10/14 Hydromorphone HCl 0 .STK-MED ONE 10/14 2122 DC .ROUTE Hydromorphone HCl 0.4 MG ONCE ONE 10/14 2114 DC 10/14 IV 10/14 Magnesium Oxide 400 MG 10/15 AC PO Oxycodone/ 1 TAB Q6 PRN 10/15 0100 AC 10/15 Acetaminophen PO 0553 Polyethylene Glycol 17 GM DAILY 10/15 1000 AC 10/15 PO 0901 Quetiapine Fumarate 25 MG QAM 10/15 1000 AC 10/15 PO 0902 Quetiapine Fumarate 50 MG QPM 10/15 0130 AC PO Senna/Docusate Sodium 1 TAB BID 10/15 0130 AC 10/15 PO 0900 Thyroid 15 MG DAILY 10/15 1000 AC 10/15 PO 0902 Tramadol HCl 50 MG DAILY PRN 10/15 0100 AC PO Last 24 Hrs of Lab/Edward Results Last 24 Hrs of Labs/Mics: Laboratory Tests 10/15/16652: Anion Gap 8, Estimated GFR > 60, BUN/Creatinine Ratio 20.0, CBC w Diff NO MAN DIFF REQ, RBC 4.44, MCV 86.2, MCH 28.4, RDW 14.2, MPV 7.9, Gran % 60.2, Lymphocytes % 21.5, Monocytes % 13.8 H, Eosinophils % 4.1, Basophils % 0.4, Absolute Granulocytes 4.1, Absolute Lymphocytes 1.5, Absolute Monocytes 0.9 H, Absolute Eosinophils 0.3, Absolute Basophils 0, PUBS MCHC 32.9 L 10/14/162117: Anion Gap 9, Estimated GFR > 60, BUN/Creatinine Ratio 21.7, Glucose 108 H, Calcium 9.7, Magnesium 2.1, Total Bilirubin 0.4, AST 55 H, ALT 47, Alkaline Phosphatase 163 H, Creatine Kinase 38, Troponin I < 0.01, Total Protein 7.3, Albumin 3.8, Globulin 3.5, Albumin/Globulin Ratio 1.1, TSH 4.840 H, Free T3 3.8 , CBC w Diff NO MAN DIFF REQ, RBC 4.64, MCV 85.8, MCH 27.9, RDW 14.1, MPV 7.3 L , Gran % 60.7, Lymphocytes % 22.9, Monocytes % 13.7 H, Eosinophils % 2.2, Basophils % 0.5, Absolute Granulocytes 4.5, Absolute Lymphocytes 1.7, Absolute Monocytes 1.0 H, Absolute Eosinophils 0.2, Absolute Basophils 0, PUBS MCHC 32.5 L Assessment/Plan Assessment: This is 85-year-old female with extensive past medical, who presented with sudden onset low back pain that started earlier on the day of admission. A CT was done and proved the presence of a multiple new compression fracture at different levels. MRI was done and shows mild T12 compression deformity, with internal STIR hyperintensity, consistent with an unhealed fracture. * Continue Percocet * We consulted interventional radiologist to evaluate if she is candidate for vertebroplasty * Granddaughter was contacted by the attending and she agreed to the plan. * Patient will most likely be discharged to short-term rehabilitation. * We will continue all home medication Heart healthy diet DNR/DNI Problem List: 1. Intractable pain Pain Ratin Pain Location: Back Pain Goal: Remain pain free Pain Plan: Percocet Tomorrow's Labs & Rationales: HERMINIO RESTREPO MD,[facility] 10/15/16 1614: Attending MD Review Statement Attending Statement Attending MD Statement: examined this patient, discuss w/resident/PA/[employer] SALES REPRESENTATIVE, agreed w/resident/PA/[employer] SALES REPRESENTATIVE, discussed with family, reviewed EMR data (avail), discussed with nursing, discussed with case mgmt, reviewed images, amended to note Attending Assessment/Plan: Patient seen and examined, not able to make it was secondary to having dementia. She denies any pain but looked anxious and was worried about her family. Vital Signs Date Time Temp Pulse Resp B/P Pulse O2 O2 Flow FiO2 Ox Delivery Rate 10/15 1434 98.7 99 20 164/74 96 10/15 1413 Room Air Room Air 10/15 1101 Room Air Room Air 10/15 0626 98.1 71 20 140/60 97 Room Air 10/15 0209 Room Air 10/15 0131 97.9 79 22 146/60 97 Room Air 10/15 0123 79 146/60 10/14 2100 Room Air 10/14 2049 97.5 78 18 164/77 94 on exam; awake, nad. cv; s1,s2, rrr resp; clear abd; soft, nt, bs+ ext; no edema. Laboratory Tests 10/15 10/14 0653 2118 Chemistry Sodium (137 - 145 mmol/L) 136 L 134 L Potassium (3.5 - 5.1 mmol/L) 3.9 3.8 Chloride (98 - 107 mmol/L) 101 98 Carbon Dioxide (22 - 30 mmol/L) 27 26 Anion Gap (5 - 16) 8 9 BUN (7 - 17 mg/dL) 10 13 Creatinine (0.5 - 1.0 mg/dL) 0.5 0.6 Estimated GFR (>60 ml/min) > 60 > 60 BUN/Creatinine Ratio (7 - 25 %) 20.0 21.7 Glucose (65 - 99 mg/dL) 108 H Calcium (8.4 - 10.2 mg/dL) 9.7 Magnesium (1.6 - 2.3 mg/dL) 2.1 Total Bilirubin (0.2 - 1.3 mg/dL) 0.4 AST (14 - 36 U/L) 55 H ALT (9 - 52 U/L) 47 Alkaline Phosphatase (<127 U/L) 163 H Creatine Kinase (30 - 135 U/L) 38 Troponin I (< 0.11 ng/ml) < 0.01 Total Protein (6.3 - 8.2 g/dL) 7.3 Albumin (3.5 - 5.0 g/dL) 3.8 Globulin (1.9 - 4.2 gm/dL) 3.5 Albumin/Globulin Ratio (1.1 - 2.2 %) 1.1 TSH (0.270 - 4.200 uIU/mL) 4.840 H Free T3 (2.34 - 5.61 pg/mL) 3.8 Hematology CBC w Diff NO MAN DIFF REQ NO MAN DIFF REQ WBC (4.8 - 10.8 /CUMM) 6.8 7.4 RBC (4.20 - 5.40 /CUMM) 4.44 4.64 Hgb (12.0 - 16.0 G/DL) 12.6 13.0 Hct (37 - 47 %) 38.3 39.9 MCV (81.0 - 99.0 FL) 86.2 85.8 MCH (27.0 - 31.0 PG) 28.4 27.9 RDW (11.5 - 14.5 %) 14.2 14.1 Plt Count (130 - 400 /CUMM) 236 262 MPV (7.4 - 10.4 FL) 7.9 7.3 L Gran % (42.2 - 75.2 %) 60.2 60.7 Lymphocytes % (20.5 - 51.1 %) 21.5 22.9 Monocytes % (1.7 - 9.3 %) 13.8 H 13.7 H Eosinophils % (0 - 5 %) 4.1 2.2 Basophils % (0.0 - 2.0 %) 0.4 0.5 Absolute Granulocytes (1.4 - 6.5 /CUMM) 4.1 4.5 Absolute Lymphocytes (1.2 - 3.4 /CUMM) 1.5 1.7 Absolute Monocytes (0.10 - 0.60 /CUMM) 0.9 H 1.0 H Absolute Eosinophils (0.0 - 0.7 /CUMM) 0.3 0.2 Absolute Basophils (0.0 - 0.2 /CUMM) 0 0 PUBS MCHC (33.0 - 37.0 G/DL) 32.9 L 32.5 L A/P; 85 y/o F with pmh sig for vertigo, atypical migraine, headache, meningioma, Lyme disease, stroke in 2016 with no residual neurologic deficits, dementia, atrial fibrillation not on rate control agents and anticoagulants, hypertension, supraventricular tachycardia on Cardizem, COPD, H pylori infection, fibromyalgia , osteoarthritis, osteoporosis, fractured knee, scoliosis, anxiety, hypothyroidism, hemangioma of brain, depression, sacral and pubic rami fractures , osteoporosis is placed on general medicine observation status secondary to having acute low back pain. Patient found to have acute compression fracture of T12 as well as L3 endplate fracture. Currently patient is treated with Percocet. Pain seems to be controlled. We spoke with interventional radiologist who is going to come and evaluate the patient to see if she is a candidate for vertebroplasty. Granddaughter is agreeable with the procedure if she is a candidate. She has a bed available at rehabilitation for tomorrow. She can be discharged to rehabilitation tomorrow ( CMR signed) and then come back as an outpatient for possible vertebroplasty if she is determined to be a candidate after interventional radiologist evaluation. Continue all other current medications. DVT Px; hep sq. D/w granddaughter over the phone at length.
[2016-10-15 08:48] LABS: ABSOLUTE BASOPHIL COUNT 0 /CUMM (0.0-0.2); ABSOLUTE EOSINOPHIL COUNT 0.3 /CUMM (0.0-0.7); ABSOLUTE GRANULOCYTE CT 4.1 /CUMM (1.4-6.5); ABSOLUTE LYMPH COUNT 1.5 /CUMM (1.2-3.4); ABSOLUTE MONOCYTE COUNT 0.9 /CUMM (0.10-0.60); BASOPHIL % 0.4 % (0.0-2.0); EOSINOPHIL % 4.1 % (0-5); GRANULOCYTE % 60.2 % (42.2-75.2); HEMATOCRIT 38.3 % (37-47); MEAN CORPUSCULAR HGB 28.4 PG (27.0-31.0); MEAN CORPUSCULAR HGB CONC 32.9 G/DL (33.0-37.0); MEAN CORPUSCULAR VOLUME 86.2 FL (81.0-99.0); MEAN PLATELET VOLUME 7.9 FL (7.4-10.4); PLATELET COUNT 236 /CUMM (130-400); RBC DISTRIBUTION WIDTH 14.2 % (11.5-14.5); RED BLOOD CELL CT 4.44 /CUMM (4.20-5.40); WHITE BLOOD CELL COUNT 6.8 /CUMM (4.8-10.8)
--- NOTE | 2016-10-15 10:11 | NUR ---
PT OFF FLOOR TO MRI AT THIS TIME; A;OX1 RA, ASST TO STRETCHER
--- NOTE | 2016-10-15 12:08 | MRI REPORT ---
EXAMINATION: MR THORACIC SPINE CLINICAL INFORMATION: 85-year-old woman with back pain. COMPARISON: CT lumbar spine 10/14/2016 TECHNIQUE: An MRI of the thoracic spine was performed on a 1.5 T scanner utilizing multiple sequences. FINDINGS: The axial images are severely motion degraded and are of limited diagnostic value. There is an exaggeration of the normal thoracic kyphosis. Otherwise, no vertebral body subluxations are seen. There is moderate degenerative disc disease at T6-T7 and a small broad-based posterior disc bulge that touches, and possibly indents the anterior surface of the thoracic cord, in part due to the exaggerated kyphosis. At L1-2 and L2-3 there are left lateral disc bulges that do not result in significant central canal or neural foraminal stenosis. The T12 vertebral body demonstrates mild compression deformity, with about 20% loss in height relative to T11 above it. The superior endplate and anterior aspect of the vertebral body demonstrate T1 hypointense signal change with STIR hyperintensity. The appearance is consistent with an unhealed compression fracture. The superior endplate of T12 bulges slightly posteriorly into the central canal, to an extent similar to that seen on the recent CT scan. The level of the conus is at the T11-T12 disc space. Therefore, there is no focal deformity of the conus medullaris. Two 11 mm, well-defined , T1 isointense T2 hyperintense focus are noted in the T11 and T12 vertebral bodies that likely represent small hemangiomas. There is a T1/T2 hyperintense focus in the T6 vertebral body that likely represents a hemangioma. There is also some T1/T2 hyperintense endplate changes around the anterior aspects of the T6 76 disc space that likely represent Modic type II degenerative endplate reaction. . There is additional scattered marrow signal heterogeneity that is likely within normal. The paraspinal soft tissues and visualized portions of the ribs are unremarkable. There is no paraspinal edema to suggest ligamentous injury or infection. IMPRESSION: 1. The axial images are severely motion degraded and are of limited diagnostic value. 2. There is a mild T12 compression deformity, with internal STIR hyperintensity, consistent with an unhealed fracture. Overall morphology not changed from the prior CT scan. No conus medullaris compression, though some nerve root stretching is a possibility. A repeat study under sedation with better axial cuts may prove helpful for further evaluation if this is a concern.
[2016-10-15] MEDS ORDERED: PERCOCET 5-3251 EACH PO (14:18)
--- NOTE | 2016-10-15 14:21 | Patient Discharge Instructions ---
Discharge Instructions General Discharge Information You were seen/treated for: Impression fracture Pain management Special Instructions: -Please follow-up with your primary care physician in one week of discharge -You will be called by IR department for scheduling of vertebroplasty next week. -Please stop taking aspirin 3 days prior to the procedure. Diet Continue normal diet: Yes Activity Additional ACTIVITY Info: As tolerated with assistance Acute Coronary Syndrome Inclusion Criteria At DC or during hospital stay patient has or had the following: ACS DIAGNOSIS No Discharge Core Measures Meds if any: Prescribed or Continued at Discharge Meds if any: NOT Prescribed or Continued at Discharge Congestive Heart Failure Inclusion Criteria At DC or during hospital stay patient has or had the following: CHF DIAGNOSIS No Discharge Core Measures Meds if any: Prescribed or Continued at Discharge Meds if any: NOT Prescribed or Continued at Discharge Cerebrovascular accident Inclusion Criteria At DC or during hospital stay patient has or had the following: CVA/TIA Diagnosis No Discharge Core Measures Meds if any: Prescribed or Continued at Discharge Meds if any: NOT Prescribed or Continued at Discharge Venous thromboembolism Inclusion Criteria VTE Diagnosis No VTE Type NONE VTE Confirmed by (Test) NONE Discharge Core Measures - Per Current guidelines, there needs to be overlap - treatment for the first 5 days of Warfarin therapy. - If discharged on Warfarin prior to 5 days of - overlap therapy, the patient will need to be - assessed for post discharge needs including - *Post discharge parental anticoagulation - *Warfarin and/or parental anticoagulation education - *Follow up date to check INR post discharge At least 5 days overlap therapy as Inpatient No Meds if any: Prescribed or Continued at Discharge Note: Overlap Therapy is Warfarin and Anticoagulant Meds if any: NOT Prescribed or Continued at Discharge
--- NOTE | 2016-10-15 14:28 | Discharge Summary ---
See Addendum Visit Information Visit Dates Admission Date: 10/14/16 Discharge Date: 10/18/16 Hospital Course Course Attending Physician: Jm Katz MD Primary Care Physician: PAPA BHAGAT,KELI Anand Hospital Course: This is a 85-year-old female with past medical history significant for vertigo, atypical migraine, headache, meningioma, Lyme disease, stroke in 2016 with no residual neurologic deficits, dementia, atrial fibrillation not on rate control agents and anticoagulants, hypertension, supraventricular tachycardia on Cardizem, COPD, H pylori infection, fibromyalgia, osteoarthritis, osteoporosis, fractured knee, scoliosis, anxiety, hypothyroidism, hemangioma of brain, depression, sacral and pubic rami fractures, osteoporosis presented to emergency department with sudden onset low back pain since morning of her admission. patient was admitted at [facility] in August 2016 after an unwitnessed mechanical fall status post pelvic fracture. She was discharged to short-term rehabilitation. She received physical therapy and she was on weight bearing status as tolerated. She was discharged to assisted living from rehabilitation. Patient reports sudden onset low back pain, 10 out of 10, sharp and achy, radiating to her legs. She denied any trauma or fall. She denied any numbness, tingling sensation. She denied weakness or sensory changes. No loss of consciousness. No neurologic deficits. Denied difficulty passing urine. Patient denied any fever, chills, headache, weakness or sensory changes, gait or vision abnormalities. She denied any chest pain, racing of heart, loss of consciousness, seizures, vertigo, tinnitus, short of breath, cough, abdominal pain, nausea, vomiting. Patient has long-standing history of constipation. Denied any lower extremity swelling. No sick contacts or travel history. Denied smoking or alcohol or illicit drug abuse. Patient was admitted on general medical floor. Imaging study including his spine and also MRI of thoracic spine done that showed compression fracture at level T12 which is new and also there is stable invagination of disc into the inferior endplate of L3 compared to the most recent prior study. Patient was also evaluated by physical therapy and the plan is to discharge her to short-term rehabilitation to work with physical therapy and get her strength back. Possibility of vertebroplasty was offered by IR department and patient was discussed with Dr. Sutton and he mentioned that patient is a candidate for vertebroplasty. Attending Dr. Reis discussed with Farheen and she will be called by Dr. Sutton to and this procedure would be done as outpatient. Later that day patient was seen evaluated by and head nurse Tomasa will contact patient in Rehab and will decisde the date of procedure after contacting and finding out about availability of anesthesia. Complications: None Allergies: Coded Allergies: duloxetine (From CYMBALTA) (Severe, RASH 10/15/15) Benzodiazepines (UNKNOWN PER PT 10/15/15) clarithromycin (From BIAXIN) (UNKNOWN PER PT 10/15/15) lisinopril (UNKNOWN PER PT 10/15/15) meperidine (From DEMEROL) (UNKNOWN PER PT 10/15/15) verapamil (UNKNOWN PER PT 10/15/15) Uncoded Allergies: OPIOD (Severe, N/V, DIZZINESS 10/15/15) "SEDATIVES" (UNKNOWN PER PT 10/15/15) Pertinent Lab Results: SERVICE DATE: 10/14/16 EXAM TYPE: CAT - CT LUMB SPINE WO IV CONTRAST EXAMINATION: CT LUMBAR SPINE WITHOUT CONTRAST CLINICAL INFORMATION: Acute midline back pain. Recent fractures. COMPARISON: CT scan of the lumbar spine 07/26/2013. CT scan of the abdomen and pelvis 08/24/2016. TECHNIQUE: Helical non-contrast CT images were obtained through the lumbar spine and 1.25 and 2.5 mm axial reconstructions were reviewed along with sagittal and coronal MPRs. DLP: 809.43 mGy-cm FINDINGS: There is a dextroscoliosis in the thoracolumbar region. There is marked narrowing of intervertebral disc height at L4-L5, demonstrated on prior imaging. There is a new compression fracture of the body of T12 superiorly when compared to the most recent prior study. There is loss of central vertebral body height of approximately 30%. The superior aspect of the body has increased density. There is also invagination of disc into the inferior endplate of L3 consistent with an inferior endplate fracture, which is demonstrated on the more recent prior study, but was not visualized on the remote lumbar spine CT scan. There is loss of approximately 25% of vertebral body height inferiorly. Vertebral body heights elsewhere are maintained. There is increase in the extent of the fracture of the left sacral ala. There has been further fragmentation of the superior and inferior left pubic rami fractures anteriorly. Bone mineralization is diffusely decreased. There is extensive atheromatous calcification of the aorta and iliac vessels. There is a right extrarenal pelvis. There is extensive stool in the large bowel, and the urinary bladder is distended. SPINAL LEVELS: T11-T12: There is posterior protrusion of the superior body of T12 into the spinal canal with loss of approximately 15%. There is a diffuse disc bulge posteriorly. The neural foramina are patent. T12-L1: There is a broad-based posterior disc protrusion. There is bilateral facet arthropathy. There is no central stenosis and the neural foramina are patent. L1-L2: There is bilateral facet arthropathy. There is a diffuse disc bulge. There is no central stenosis. There is mild left foraminal narrowing. L2-L3: There is bilateral facet arthropathy with ligamenta flava hypertrophy. There are inferior foraminal disc protrusions without definite nerve root encroachment. There is no significant central stenosis. L3-L4: There is moderate to severe bilateral facet arthropathy with ligamenta flava hypertrophy. There is a diffuse disc bulge with a more focal protrusion extending into the left neural foramen. There is moderate central stenosis. L4-L5: There is severe bilateral facet arthropathy and ligamenta flava hypertrophy. There is a posterior disc osteophyte complex extending into the right greater than left neural foramina. There is mild central stenosis. L5-S1: There is moderate bilateral facet arthropathy. Posterior disc contour is normal. There is mild right foraminal narrowing. There is no central stenosis. IMPRESSION: 1. There has been interval development of a compression fracture of the body of T12, new compared to recent imaging. 2. There is a stable invagination of disc into the inferior endplate of L3 compared to the most recent prior study, consistent with an endplate fracture. 3. There are progressive sequelae of fractures of the left upper sacrum and superior inferior left pubic rami. 4. The bones are diffusely osteoporotic. SERVICE DATE: 10/15/16 EXAM TYPE: MRI - MRI-THORACIC SPINE EXAMINATION: MR THORACIC SPINE CLINICAL INFORMATION: 85-year-old woman with back pain. COMPARISON: CT lumbar spine 10/14/2016 TECHNIQUE: An MRI of the thoracic spine was performed on a 1.5 T scanner utilizing multiple sequences. FINDINGS: The axial images are severely motion degraded and are of limited diagnostic value. There is an exaggeration of the normal thoracic kyphosis. Otherwise, no vertebral body subluxations are seen. There is moderate degenerative disc disease at T6-T7 and a small broad-based posterior disc bulge that touches, and possibly indents the anterior surface of the thoracic cord, in part due to the exaggerated kyphosis. At L1-2 and L2-3 there are left lateral disc bulges that do not result in significant central canal or neural foraminal stenosis. The T12 vertebral body demonstrates mild compression deformity, with about 20% loss in height relative to T11 above it. The superior endplate and anterior aspect of the vertebral body demonstrate T1 hypointense signal change with STIR hyperintensity. The appearance is consistent with an unhealed compression fracture. The superior endplate of T12 bulges slightly posteriorly into the central canal, to an extent similar to that seen on the recent CT scan. The level of the conus is at the T11-T12 disc space. Therefore, there is no focal deformity of the conus medullaris. Two 11 mm, well-defined , T1 isointense T2 hyperintense focus are noted in the T11 and T12 vertebral bodies that likely represent small hemangiomas. There is a T1/T2 hyperintense focus in the T6 vertebral body that likely represents a hemangioma. There is also some T1/T2 hyperintense endplate changes around the anterior aspects of the T6 76 disc space that likely represent Modic type II degenerative endplate reaction. . There is additional scattered marrow signal heterogeneity that is likely within normal. The paraspinal soft tissues and visualized portions of the ribs are unremarkable. There is no paraspinal edema to suggest ligamentous injury or infection. IMPRESSION: 1. The axial images are severely motion degraded and are of limited diagnostic value. 2. There is a mild T12 compression deformity, with internal STIR hyperintensity, consistent with an unhealed fracture. Overall morphology not changed from the prior CT scan. No conus medullaris compression, though some nerve root stretching is a possibility. A repeat study under sedation with better axial cuts may prove helpful for further evaluation if this is a concern. Disposition Summary Disposition Principal Diagnosis: Compression fracture Additional Diagnosis: Hypertension Discharge Disposition: SNF Discharge Instructions General Discharge Information Code Status: Do Not Resucitate/Intubat Patient's Diet: Heart healthy diet Patient's Activity: As tolerated with assistance Follow-Up Instructions/Appts: Please follow-up with primary care physician in one week of discharge Patient is scheduled for vertebroplasty on October 20 with interventional radiologist at 10:30 AM. Please stop taking aspirin for tomorrow and day after and restart after procedure of vertebroplasty on 10/20/2016 Medications at Discharge Discharge Medications: Stop taking the following medications: Amitriptyline HCl (Amitriptyline HCl) 10 MG TABLET ORAL Every night Aspirin (Ecotrin*) 325 MG TABLET.DR ORAL DAILY Continue taking these medications: Diltiazem HCl (Diltiazem 24HR Cd) 180 MG CAP.ER.24H 1 Capsule ORAL DAILY Comments: PER PT MED LIST FROM [facility] Magnesium Oxide (Magnesium Oxide) 400 MG TABLET 1 Tablet ORAL TAKE AT BEDTIME Comments: PER PT MED LIST [facility] Thyroid ([place] Thyroid) 15 MG TABLET 1 Tablet ORAL DAILY Comments: PER PT MED LIST [facility] Cholecalciferol (Vitamin D3) (Vitamin D) 5,000 UNIT TABLET 1 Tablet ORAL TAKE AT BEDTIME Comments: PER PT MED LIST FROM [facility] Sennosides/Docusate Sodium (Senna S Tablet) 1 EACH TABLET 2 Tablet ORAL TAKE AT BEDTIME Comments: PER PT MED LIST [facility] Tramadol HCl (Tramadol HCl) 50 MG TABLET 1 Tablet ORAL Every Morning Comments: PER PT MED LIST FROM [facility] Polyethylene Glycol 3350 (Miralax) 17 GM POWD.PACK 1 Packet ORAL DAILY as needed for GI Instructions: dissolve in water Comments: PER PT MED LIST FROM [facility] Acetaminophen (Tylenol) 325 MG TABLET 1 Tablet ORAL Q6H as needed for H/A OR TEMP 100.5> Comments: PER PT MED LIST FROM [facility] Fluticasone Propionate (Flovent Hfa) 110 MCG/ACTUATION AER.W.ADAP 1 Puff Inhale through mouth GIVE ONCE Qty = 30 Tiotropium [place] (Spiriva) 18 MCG CAP.W.DEV 1 Capsule Inhale through mouth DAILY Qty = 30 Quetiapine Fumarate (Seroquel) 25 MG TABLET 1 Tablet ORAL Every Morning Quetiapine Fumarate (Seroquel) 50 MG TABLET 1 Tablet ORAL Every night Start taking the following new medications: Oxycodone HCl/Acetaminophen (Percocet 5-325 MG Tablet) 5 MG-325 MG TABLET 1 Tablet ORAL EVERY SIX HOURS as needed for PATIENT CONTROLLED ANALGESIA Days = 14 No Refills Copies To: PAPA BHAGAT,KELI Anand Attending MD Review Statement Documenting Attending: KAYE BHAGAT,JM Other Findings: 85F with extensive medical history admitted for intractable back pain and weakness secondary to T12 compression fracture and L3 endplate fracture. Patient reports that her pain is improved but still present, though manageable, and she is able to walk with assistance. Her pain is well controlled. continue current management, d/c rehab placement awaiting bed availability, needs to f/u o/p for possible vertebral kyhpoplasty if pain not improved.
[2016-10-15 14:34] VITALS: BP 164/74
[2016-10-15 22:52] VITALS: BP 148/74
--- NOTE | 2016-10-15 23:24 | INTERVENTIONAL RADIOLOGY RPT ---
INPATIENT CONSULTATION PATIENT: Paulina Rao DATE OF : 1930 [facility] REFERRING PHYSICIAN: Bhumika Mehta MD of the medical service. Dr. Eder Salas MD is the patient's attending physician. DATE OF REQUEST: 10/15/2016 TOTAL TIME: 45 minutes, greater than 50% of which was spent in counseling and coordination of care. CHIEF COMPLAINT: New, spontaneous onset of severe back pain at the thoracolumbar junction. SOURCE: Medical records, the patient, and her granddaughter, Farheen Rizo (cell [phone], work [phone]) who was present in the patient's room during my evaluation. The patient's son, Jose Rao ([phone]), and daughter, Paula Rao ([phone]) also live in [place] and actively participate in the patient's care. HISTORY OF PRESENT ILLNESS: Mrs. 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 The patient was previously admitted to [facility] early August, after an unwitnessed mechanical fall resulting in nondisplaced fractures involving the left superior and inferior pubic rami as well as the left sacral ala. She was subsequently discharged to short-term rehabilitation where she received physical therapy and was on a weight-bearing status. She was then discharged to the [facility] facility which has a structured program for patients with cognitive loss. There, several days ago, she began having sudden spontaneous onset of back pain at the thoracolumbar junction rated as 10 out of 10 in intensity and sharp, lancinating in quality radiating down her legs. This pain is exacerbated by standing and forward flexion. It was diminished by lying quietly in bed. She does not have any weakness or loss of sensation in her legs. She also does not have any bowel or bladder dysfunction. The patient was transferred to [facility] for further evaluation and underwent a CT scan of the lumbar spine on 10/14/2016 which showed a new compression fracture involving the superior endplate of the T12 vertebral body with approximately 30% loss of central height as well as a stable, chronic inferior endplate fracture of L3. The patient went on to have an MRI of the thoracic spine today which confirmed an acute wedge compression fracture of T12 with active marrow edema. No other active spine fractures were identified. There was no evidence of a disc herniation or spinal stenosis. [facility] was consulted for an opinion as to whether the patient may be a candidate for vertebral augmentation of her T12 fracture. PAST MEDICAL HISTORY: 1. Vertigo 2. Atypical migraine headaches 3. Meningioma 4. Lyme disease 5. Stroke October, with no residual neurological deficits 6. Dementia 7. Atrial fibrillation, not on rate control agents or anticoagulations 8. Hypertension 9. Supraventricular tachycardia, on Cardizem 10. COPD 11. H. Pylori infection 12. Fibromyalgia 13. Osteoarthritis 14. Osteoporosis 15. Scoliosis 16. Anxiety 17. Hypothyroidism 18. Depression 19. Left sacral and pubic rami pelvic fractures 20. Scoliosis PAST SURGICAL HISTORY: 1. Appendectomy 2. Hysterectomy 3. Tonsillectomy SOCIAL HISTORY: Alcohol Use: None. Tobacco Use: Nonsmoker (never smoked). Marital Status: . 3 children. Used to live with her granddaughter, Farheen. Currently lives in an assisted nursing facility. 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 FAMILY HISTORY: Father: Dementia. Family history of bladder and breast cancer. MEDICATIONS: 1. Acetaminophen 325 mg 1 tab by mouth every 6 hours when necessary. 2. Amitriptyline 10 mg tablet 2 tabs by mouth every afternoon. 3. Aspirin (Ecotrin) 325 mg 1 by mouth daily. 4. Cholecalciferol 5000 unit tablet by mouth daily at bedtime. 5. Diltiazem 180 mg capsule by mouth daily. 6. Flovent HFA 110 mcg per activation 1 puff INH. 7. Magnesium oxide 400 mg by mouth daily at bedtime. 8. Polyethylene glycol 3350 (MiraLAX) one 17 Gram PAC by mouth daily when necessary constipation. 9. Seroquel 25 mg tablet every morning, 50 mg tablet every afternoon. 10. [place] thyroid 15 mg tablet by mouth daily. 11. Spiriva 18 mg cap inhaled daily. 12. Tramadol 50 mg tablet by mouth every morning. ALLERGIES: DULOXETINE (severe rash) BENZODIAZEPINE (unknown) CLARITHROMYCIN (unknown) LISINOPRIL (unknown) MEPERIDINE (unknown) VERAPAMIL (unknown) OPIATES CAUSE DISORIENTATION, NAUSEA AND VOMITING, AND DIZZINESS. REVIEW OF SYSTEMS: 13-point review of systems was performed and is in the chart. Pertinent positives are constipation, back pain, confusion, ataxia, depression, headaches, tremors. VITAL SIGNS: BP: 146/60 mmHg HR: 79 bpm Temp: 97.9 F Respiratory Rate: 22 Pulse Ox: 97% on room air Weight: 49.9 kg PHYSICAL EXAM: General: Cooperative and responsive but not oriented to time or place. HEENT: No scleral icterus. EOMI. Mucus membranes moist. No nasal or oral mucosal lesions. No jugular venous distention, cervical masses, thyromegaly, or carotid bruits. Lungs: Breathing unlabored. CTA bilaterally. CV: RRR, S1-S2, no murmurs. Abdomen: Nondistended. Soft. Nontender. No organomegaly or mass. Extremities: No peripheral edema or clubbing. Full range of motion and strength in all 4 extremities. Skin: No jaundice, edema, ulceration, petechiae, or rash. No decubiti or skin breakdown. Spine: Severe point tenderness to palpation over T12 spinous processes. No paraspinal soft tissue mass, ecchymosis, or hematoma. Neuro: No localizing deficits. IMAGING: Thoracic spine MRI 10/15/2016 IMPRESSION: 1. The axial images are severely motion degraded and are of limited diagnostic value. 2. There is a mild T12 compression deformity, with internal STIR hyperintensity, consistent with an unhealed fracture. Overall morphology not changed from the prior CT scan. No conus medullaris compression, though some nerve root stretching is a possibility. A repeat study under sedation with better axial cuts may prove helpful for further evaluation if this is a concern. CT of the lumbar spine without IV contrast 10/14/2016 IMPRESSION: 1. There has been interval development of a compression fracture of the body of T12, new compared to recent imaging. 2. There is a stable invagination of disc into the inferior endplate of L3 compared to the most recent prior study, consistent with a chronic endplate fracture. 3. There are progressive sequelae of fractures of the left upper sacrum and superior/inferior left pubic rami. 4. The bones are diffusely osteoporotic. LABS: From 10/15/2016: WBC 6.8, hemoglobin 12.6, hematocrit 38.3, platelet count 236, sodium 136, potassium 3.9, chloride 101, CO2 27, BUN 10, creatinine 0.5, glucose 105, alkaline phosphatase 163. ASSESSMENT: Mrs. Rao is a 85-year-old female who suffers from dementia with a history of osteoporosis and a chronic L3 compression fracture. She had a recent unwitnessed fall with documented left sacral and pubic rami fractures in August of 2016 which were conservatively managed. She now presents with spontaneous severe pain at the thoracolumbar junction with documentation of a new, acute osteoporotic compression fracture of T12 with approximately 30% depression of the superior endplate. I believe she again is an excellent candidate for outpatient vertebral augmentation under deep sedation with anesthesia assistance for fracture stabilization and pain relief. This treatment plan was discussed in detail with the patient and her granddaughter, Farheen including indications, alternatives, benefits and potential risks. The granddaughter, who has DPOA, expressed understanding and the desire to proceed. A signed consent form was obtained. There is a plan to transfer the patient to [facility] pending treatment. PLAN: 1. Proceed with kyphoplasty of T12 under fluoroscopic guidance at [facility] as an outpatient with anesthesia support for deep sedation at the earliest possible opportunity. 2. Obtain a baseline DEXA scan. 3. Send the patient for expert comprehensive endocrinological evaluation from an osteoporosis specialist regarding treatment of her advanced osteoporosis specifically for opinion regarding use of Forteo. 4. The patient's resident agreed to obtain a PT/INR prior to discharge. 5. The patient is taking aspirin which could increase the risk of bleeding/bruising. If not clinically contraindicated, it would be desirable to hold this for several days prior to the procedure. The patient's resident agreed to hold the aspirin beginning tomorrow. 6. Avoid narcotics or sedatives that could exacerbate the patient's dementia or precipitate agitation.
[2016-10-16 06:34] VITALS: BP 136/76
[2016-10-16 08:29] LABS: PT 11.9 SEC (9.4-12.5)
--- NOTE | 2016-10-16 08:44 | PN- Housestaff ---
ARVIND BHAGAT,LUIS 10/16/16 0844: Subjective Follow-up For: compression fracture of the body of T12 Complaints: patient is not able to put the complain because of her dementia Subjective: Patient is seen and examined at the bedside. She was saying that she was comfortable but She wasn't able to put the complain probably because of her dementia. She does not seems in any distress. Review of Systems Constitutional: Denies: no symptoms. Comments: Patient is not able to put the complain because of her dementia Objective Last 24 Hrs of Vital Signs/I&O Vital Signs Date Time Temp Pulse Resp B/P Pulse O2 O2 Flow FiO2 Ox Delivery Rate 10/16 1440 98.3 91 20 134/72 97 Room Air 10/16 0634 98.0 92 20 136/76 97 10/15 2252 98.0 88 18 148/74 98 Room Air Intake & Output 10/16 1600 10/16 0800 10/16 0000 Intake Total 520 120 240 Output Total Balance 520 120 240 Intake, Oral 520 120 240 Number 0 Bowel Movements Patient 49.895 kg Weight Physical Exam General Appearance: Alert, Oriented X3, Cooperative, No Acute Distress Cardiovascular: Normal S1, Normal S2 Lungs: Clear to Auscultation, Normal Air Movement Abdomen: Soft, No Tenderness Neurological: Normal Speech Extremities: No Clubbing, No Cyanosis, No Edema Vascular: Normal Pulses, Pulses Symmetrical Current Medications: Current Medications Sig/Ulices Start time Last Medication Dose Route Stop Time Status Admin Acetaminophen 650 MG Q6 PRN 10/15 0100 AC 10/16 PO 1959 Amitriptyline HCl 20 MG QPM 10/15 2200 AC 10/15 PO 2108 Aspirin Buffered 325 MG DAILY 10/15 1000 AC 10/16 PO 0859 Bisacodyl 5 MG DAILY 10/15 1000 AC 10/16 PO 0859 Diltiazem HCl 180 MG DAILY 10/15 1000 AC 10/16 PO 0859 Fluticasone 1 PUF DAILY 10/15 1000 AC 10/16 Propionate INH 0901 Heparin Sodium 5,000 UNIT Q8 10/15 06 AC 10/16 (Porcine) SC 1331 Magnesium Oxide 400 MG 10/150 AC 10/15 PO 2110 Oxycodone/ 1 TAB Q6 PRN 10/15 0100 AC 10/15 Acetaminophen PO 0553 Polyethylene Glycol 17 GM DAILY 10/15 1000 AC 10/16 PO 0858 Quetiapine Fumarate 25 MG QAM 10/15 1000 AC 10/16 PO 0900 Quetiapine Fumarate 50 MG QPM 10/15 0130 AC 10/15 PO 2108 Senna/Docusate Sodium 1 TAB BID 10/15 0130 AC 10/16 PO 0859 Thyroid 15 MG DAILY 10/15 1000 AC 10/16 PO 0900 Tramadol HCl 50 MG DAILY PRN 10/15 0100 AC PO Last 24 Hrs of Lab/Edward Results Last 24 Hrs of Labs/Mics: Laboratory Tests 10/16/16 0630: PT 11.9, INR 1.13 Assessment/Plan Assessment: This is 85-year-old female with extensive past medical, who presented with sudden onset low back pain that started earlier on the day of admission. A CT was done and proved the presence of a multiple new compression fracture at different levels. MRI was done and shows mild T12 compression deformity, with internal STIR hyperintensity, consistent with an unhealed fracture. Plan - Compression fracture of T12 - * Continue Percocet, pain medication according to the pain scale * Patient can have vertebroplasty as an outpatient * She did not get the bed in the [facility] today, so will stay and we changed observation to admission, after talking to the social work case manager, Jasmin. Please discuss with the social work case manager to update Daughter about the plan of STR placement * They need to stop tablet aspirin 3 days before the vertebroplasty * We will continue all home medication Diet -heart healthy diet CODE STATUS - DNR/DNI Problem List: 1. Fracture of T12 vertebra Pain Ratin (pt is not able to define) Pain Location: back Pain Goal: Remain pain free Pain Plan: [id number] Tomorrow's Labs & Rationales: not required DVT/Prophylaxis: mechanical, pharmacological AIDA FISH MD 10/16/16 1543: Attending MD Review Statement Attending Statement Attending MD Statement: examined this patient, discuss w/resident/PA/OPERATIONS TRAINER, agreed w/resident/PA/OPERATIONS TRAINER, reviewed EMR data (avail) Attending Assessment/Plan: 85F with extensive medical history admitted for intractable back pain and weakness secondary to T12 compression fracture and L3 endplate fracture. Patient reports that her pain is improved but still present, though manageable, and she is able to walk with assistance but does not feel stable. SHe is otherwise well. Continue current management. Awaiting bed at rehab facility.
--- NOTE | 2016-10-16 11:17 | Event Note ---
Event Note Event Note: Discussed with bernice, patient is beyond 48 hrs and she didnt have bed in [facility]. She can be changed from observation to full admission. Dr Montelongo is aware.
[2016-10-16 14:40] VITALS: BP 134/72
[2016-10-16 23:04] VITALS: BP 148/72
[2016-10-17 06:00] VITALS: BP 142/64
--- NOTE | 2016-10-17 08:30 | PN- Housestaff ---
MATTI TIAN 10/17/16 0829: Subjective Follow-up For: compression fracture of the body of T12 Complaints: no complaints Subjective: She was seen and examined this morning. She was sitting comfortably in bed without any complaints. She still has mild back pain but is under controlled with analgesic management. She is waiting for that in short-term rehabilitation and later on plan is to do vertebroplasty on her by interventional radiologist Review of Systems Constitutional: Denies: chills, diaphoresis. EENTM: Denies: double vision. Cardiovascular: Denies: chest pain, edema. Respiratory: Denies: cough, hemoptysis. Gastrointestinal: Denies: bloating, constipation. Genitourinary: Denies: frequency. Musculoskeletal: Reports: back pain. Skin: Reports: see HPI. Objective Last 24 Hrs of Vital Signs/I&O Vital Signs Date Time Temp Pulse Resp B/P Pulse O2 O2 Flow FiO2 Ox Delivery Rate 10/17 06 98.3 74 16 142/64 97 Room Air 10/16 2304 98.6 81 17 148/72 96 10/16 1440 98.3 91 20 134/72 97 Room Air Intake & Output 10/17 1600 10/17 0800 10/17 0000 Intake Total 120 480 Output Total 375 650 Balance -255 -170 Intake, Oral 120 480 Number 1 Bowel Movements Output, Urine 375 650 Physical Exam General Appearance: Cooperative Skin: No Significant Lesion Cardiovascular: Normal S1, Normal S2, No Murmurs Lungs: Normal Air Movement Abdomen: Soft Current Medications: Current Medications Sig/Ulices Start time Last Medication Dose Route Stop Time Status Admin Acetaminophen 650 MG .STK-MED ONE 10/17 1955 DC PO 10/16 1956 Acetaminophen 650 MG Q6 PRN 10/15 0100 AC 10/16 PO 1958 Amitriptyline HCl 20 MG QPM 10/15 220 AC 10/16 PO 2116 Aspirin Buffered 325 MG DAILY 10/15 1000 AC 10/17 PO 0943 Bisacodyl 5 MG DAILY 10/15 1000 AC 10/17 PO 44 Diltiazem HCl 180 MG DAILY 10/15 1000 AC 10/17 PO 0944 Fluticasone 1 PUF DAILY 10/15 1000 AC 10/17 Propionate INH 0948 Heparin Sodium 5,000 UNIT Q8 10/15 06 AC 10/17 (Porcine) SC 0530 Magnesium Oxide 400 MG 10/15 AC 10/16 PO 2116 Oxycodone/ 1 TAB Q6 PRN 10/15 010 AC 10/15 Acetaminophen PO 0553 Polyethylene Glycol 17 GM DAILY 10/15 1000 AC 10/17 PO 0945 Quetiapine Fumarate 25 MG QAM 10/15 1000 AC 10/17 PO 0944 Quetiapine Fumarate 50 MG QPM 10/15 0130 AC 10/16 PO 2116 Senna/Docusate Sodium 1 TAB BID 10/15 013 AC 10/17 PO 0943 Thyroid 15 MG DAILY 10/15 1000 AC 10/17 PO 0944 Tramadol HCl 50 MG DAILY PRN 10/15 010 AC PO Assessment/Plan Assessment: This is 85-year-old female with extensive past medical, who presented with sudden onset low back pain that started earlier on the day of admission. A CT was done and proved the presence of a multiple new compression fracture at different levels. MRI was done and shows mild T12 compression deformity, with internal STIR hyperintensity, consistent with an unhealed fracture. Plan - Compression fracture of T12 - * Continue Percocet, pain medication according to the pain scale * Patient can have vertebroplasty as an outpatient * Waiting for bed in [facility] * They need to stop tablet aspirin 3 days before the vertebroplasty * We will continue all home medication Diet -heart healthy diet CODE STATUS - DNR/DNI Problem List: 1. Fracture of T12 vertebra 2. Intractable pain Pain Ratin Pain Location: Mid back Pain Goal: Pain 4 or less Pain Plan: Tramadol Tomorrow's Labs & Rationales: BP AIDA FISH MD 10/17/16 1501: Attending MD Review Statement Attending Statement Attending MD Statement: examined this patient, discuss w/resident/PA/HISTORY DEPARTMENT CHAIR, agreed w/resident/PA/HISTORY DEPARTMENT CHAIR, reviewed EMR data (avail) Attending Assessment/Plan: 85F with extensive medical history admitted for intractable back pain and weakness secondary to T12 compression fracture and L3 endplate fracture. Patient reports that her pain is improved but still present, though manageable, and she is able to walk with assistance but does not feel stable. SHe is otherwise well. Will continue current management, awaiting rehab placement.
[2016-10-17 14:28] VITALS: BP 145/76
[2016-10-17 22:36] VITALS: BP 152/84
[2016-10-18 07:21] VITALS: BP 144/74
--- NOTE | 2016-10-18 08:00 | PN- Housestaff ---
[facility]800: Subjective Follow-up For: Lower back pain secondary to compression fracture. Subjective: Afebrile, hemodynamically stable, saturating well on room air. No acute overnight events reported. Patient looks mildly confused. Patient pain is well controlled. She denies any other current complaints. Review of Systems Constitutional: Reports: no symptoms. Denies: chills, fever. Objective Last 24 Hrs of Vital Signs/I&O Vital Signs Date Time Temp Pulse Resp B/P Pulse O2 O2 Flow FiO2 Ox Delivery Rate 10/18 0721 98.2 98 20 144/74 97 10/17 2236 98.2 81 19 152/84 96 10/17 1428 99.0 88 20 145/76 97 Room Air Intake & Output 10/18 1600 10/18 0800 10/18 0000 Intake Total 240 400 Output Total 300 Balance 240 100 Intake, Oral 240 400 Output, Urine 300 Physical Exam General Appearance: Alert, Oriented X3, Cooperative, No Acute Distress Skin: No Rashes, No Breakdown HEENT: Atraumatic, PERRLA, EOMI, Mucous Membr. moist/pink Cardiovascular: Regular Rate, Normal S1, Normal S2, No Murmurs Lungs: Clear to Auscultation, Normal Air Movement Abdomen: Normal Bowel Sounds, Soft, No Tenderness Neurological: Normal Speech Extremities: No Clubbing, No Cyanosis, No Edema Current Medications: Current Medications Sig/Ulices Start time Last Medication Dose Route Stop Time Status Admin Acetaminophen 650 MG Q6 PRN 10/15 0100 AC 10/16 PO 1959 Amitriptyline HCl 20 MG QPM 10/15 2199 AC 10/17 PO 220 Aspirin Buffered 325 MG DAILY 10/15 1000 AC 10/18 PO 1103 Bisacodyl 5 MG DAILY 10/15 1000 AC 10/18 PO 1103 Diltiazem HCl 180 MG DAILY 10/15 1000 AC 10/18 PO 1103 Fluticasone 1 PUF DAILY 10/15 1000 AC 10/18 Propionate INH 1103 Heparin Sodium 5,000 UNIT Q8 10/15 0600 AC 10/18 (Porcine) SC 0606 Magnesium Hydroxide 30 ML ONE ONE 10/18 0930 DC 10/18 PO 10/18 0931 1103 Magnesium Oxide 400 MG 22010/15 220 AC 10/17 PO 220 Oxycodone/ 1 TAB Q6 PRN 10/15 0100 AC 10/15 Acetaminophen PO 0553 Polyethylene Glycol 17 GM DAILY 10/15 1000 AC 10/18 PO 1103 Quetiapine Fumarate 25 MG QAM 10/15 1000 AC 10/18 PO 1103 Quetiapine Fumarate 50 MG QPM 10/15 0130 AC 10/17 PO 2208 Senna/Docusate Sodium 1 TAB BID 10/15 0130 AC 10/17 PO 2207 Thyroid 15 MG DAILY 10/15 1000 AC 10/18 PO 1103 Tramadol HCl 50 MG DAILY PRN 10/15 0100 AC PO Last 24 Hrs of Lab/Edward Results Last 24 Hrs of Labs/Mics: Laboratory Tests 10/18/16 0702: Anion Gap 11, Estimated GFR > 60, BUN/Creatinine Ratio 25.0 Assessment/Plan Assessment: This is 85-year-old female with extensive past medical, who presented with sudden onset low back pain that started earlier on the day of admission. A CT was done and proved the presence of a multiple new compression fracture at different levels. MRI was done and shows mild T12 compression deformity. #Compression fracture of T12 - * Continue Percocet, pain medication according to the pain scale * Patient can have vertebroplasty as an outpatient * Waiting for bed in [facility] * They need to stop tablet aspirin 3 days before the vertebroplasty * We will continue all home medication Diet -heart healthy diet DVT ppx ALPS CODE STATUS - DNR/DNI Problem List: 1. Fracture of T12 vertebra Pain Ratin Pain Location: lower back Pain Goal: Remain pain free Pain Plan: see A&P Tomorrow's Labs & Rationales: See A&P LORENA STACK 10/18/16 1156: Attending MD Review Statement Attending Statement Attending MD Statement: examined this patient, discuss w/resident/PA/UNIVERSITY PRESIDENT, agreed w/resident/PA/UNIVERSITY PRESIDENT, discussed with family, reviewed EMR data (avail), discussed with nursing, discussed with case mgmt, reviewed images Attending Assessment/Plan: 85F with extensive medical history admitted for intractable back pain and weakness secondary to T12 compression fracture and L3 endplate fracture. Patient reports that her pain is improved but still present, though manageable, and she is able to walk with assistance. Her pain is well controlled. continue current management, d/c rehab placement awaiting bed availability, needs to f/u o/p for possible vertebral kyhpoplasty if pain not improved. .
[2016-10-18 14:33] VITALS: BP 120/62
[2016-10-18 15:49] VITALS: BP 120/62
[2016-10-18 22:23] VITALS: BP 120/82
[2016-10-19 06:16] VITALS: BP 134/66
--- NOTE | 2016-10-19 07:31 | PN- Housestaff ---
Subjective Follow-up For: Lower back pain secondary to compression fracture. Subjective: Afebrile, hemodynamically stable, saturating well on room air. No acute overnight events reported. Patient pain is well controlled. She denies any other current complaints. Patient was due for discharge yesterday however because of insurance issues she stayed overnight. Review of Systems Constitutional: Reports: no symptoms. Objective Last 24 Hrs of Vital Signs/I&O Vital Signs Date Time Temp Pulse Resp B/P Pulse O2 O2 Flow FiO2 Ox Delivery Rate 10/19 0616 98.5 84 16 134/66 95 Room Air 10/18 2223 98.2 100 20 120/82 92 10/18 1549 98.1 109 20 120/62 10/18 1433 98.1 109 20 120/62 92 Room Air Intake & Output 10/19 1600 10/19 0800 10/19 0000 Intake Total 120 120 Output Total 250 Balance 120 -130 Intake, Oral 120 120 Output, Urine 250 Physical Exam General Appearance: Alert, Oriented X3, Cooperative, No Acute Distress Skin: No Rashes HEENT: Atraumatic, PERRLA, EOMI, Mucous Membr. moist/pink Cardiovascular: Regular Rate, Normal S1, Normal S2, No Murmurs Lungs: Clear to Auscultation, Normal Air Movement Abdomen: Soft, No Tenderness Neurological: Normal Gait, Normal Speech, Strength at 5/5 X4 Ext Extremities: No Clubbing, No Cyanosis, No Edema Current Medications: Current Medications Sig/Ulices Start time Last Medication Dose Route Stop Time Status Admin Acetaminophen 650 MG Q6 PRN 10/15 0100 AC 10/19 PO 0620 Amitriptyline HCl 20 MG QPM 10/15 2200 AC 10/18 PO 2144 Aspirin Buffered 325 MG DAILY 10/15 1000 DC 10/18 PO 1103 Bisacodyl 5 MG DAILY 10/15 1000 AC 10/19 PO 0959 Diltiazem HCl 180 MG DAILY 10/15 1000 AC 10/19 PO 1000 Fluticasone 1 PUF DAILY 10/15 1000 AC 10/18 Propionate INH 1103 Heparin Sodium 5,000 UNIT Q8 10/15 0600 AC 10/19 (Porcine) SC 0607 Magnesium Oxide 400 MG 2200 10/15 2200 AC 10/18 PO 2145 Oxycodone/ 1 TAB Q6 PRN 10/15 0100 AC 10/15 Acetaminophen PO 0553 Polyethylene Glycol 17 GM DAILY 10/15 1000 AC 10/19 PO 0959 Quetiapine Fumarate 25 MG QAM 10/15 1000 AC 10/19 PO 0959 Quetiapine Fumarate 50 MG QPM 10/15 0130 AC 10/18 PO 2144 Senna/Docusate Sodium 1 TAB BID 10/15 0130 AC 10/19 PO 0959 Thyroid 15 MG DAILY 10/15 1000 AC 10/18 PO 1103 Tramadol HCl 50 MG DAILY PRN 10/15 0100 AC PO Assessment/Plan Assessment: This is 85-year-old female with extensive past medical, who presented with sudden onset low back pain that started earlier on the day of admission. A CT was done and proved the presence of a multiple new compression fracture at different levels. MRI was done and shows mild T12 compression deformity. #Compression fracture of T12. * Continue Percocet or Tramadol, according to the pain scale * vertebroplasty as an outpatient, if patient stays today because of short-term rehabilitation or insurance issue, we will call IR to send her for vertebroplasty. * Aspirin is on hold for vertebroplasty * We will continue all home medication Diet -heart healthy diet DVT ppx ALPS CODE STATUS - DNR/DNI Problem List: 1. Fracture of T12 vertebra Pain Ratin Pain Location: back Pain Goal: Remain pain free Pain Plan: See A&P Tomorrow's Labs & Rationales: none as she most likely discharged today.
[2016-10-19 13:58] VITALS: BP 122/74
== END 2016-10-19 16:15 | DRG 544 ==
LOC: ERH 20:42 → 2NB 23:27 → ERHI 23:27 → 2NB 10-15 00:57
PROVIDERS: Internal Medicine; Physician Assistant Medical; ADMIT Internal Medicine
DX: M48.54XA Collapsed vertebra, not elsewhere classified, thoracic region, initial encounter for fracture (principal); I48.91 Unspecified atrial fibrillation; F03.90 Unspecified dementia, unspecified severity, without behavioral disturbance, psychotic disturbance, mood disturbance, and anxiety; J44.9 Chronic obstructive pulmonary disease, unspecified; G43.909 Migraine, unspecified, not intractable, without status migrainosus; I10 Essential (primary) hypertension; F32.9 Major depressive disorder, single episode, unspecified; D32.9 Benign neoplasm of meninges, unspecified; Z86.73 Personal history of transient ischemic attack (TIA), and cerebral infarction without residual deficits; M79.7 Fibromyalgia; M19.90 Unspecified osteoarthritis, unspecified site; F41.9 Anxiety disorder, unspecified; E03.9 Hypothyroidism, unspecified
CPT/HCPCS: 2NBSP; 6040; 72146; 36415; 82436; 84481; 93005; 93010; 96374; 96375; 96376; 97110-GO; 97116-GO; 97116-GP; 97161-GP; 97530-GO; 97530-GP; G0378; G8978-GP; G8979-GP; J1644; J3360; J3490

== ENCOUNTER 2016-10-20 13:36 | Inpatient (IN) | payer OTHER ==
[~2016-10-20] VITALS: Ht 160 cm; Wt 49.4 kg
[~2016-10-20 13:36] MED LIST changes: +PERCOCET 5-3251 EACH PO; +SEROQUEL25 M1 PO; +SEROQUEL50 M1 PO
--- NOTE | 2016-10-20 14:08 | NUR ---
BROUGHT TO ED VIA STRETCHER FROM INTERVENTIONAL RADIOLOGY, S/P VERTEBRAL AUGMENTATION PROCEDURE, PT WAS NOTICED TO HAVE A LEFT FACIAL DROOP WITH UPPER LIP SWELLING ON LEFT SIDE, PER IR, PT WAS LAYING ON HER STOMACH ON A FOAM PAD X [address] WINTERS. TO CT VIA STRETCHER ON NUTRITION AND DIETETICS INSTRUCTOR, WITH RN. PER IR, PT RECEIVED PROPAFOL AND KETAMINE (COMBINATION) IV FRO ANESTHESIA. SXS, STARTED 100 MINUTES AGO.
--- NOTE | 2016-10-20 14:09 | NUR ---
RETURNED FROM CT SCAN. EKG DONE. LABS DRAWN AND SENT.
--- NOTE | 2016-10-20 14:12 | NUR ---
PT C/O UPPER LIP NUMBNESS.
--- NOTE | 2016-10-20 14:15 | CT SCAN REPORT ---
EXAMINATION: CT HEAD WITHOUT CONTRAST CLINICAL INFORMATION: Right facial droop and weakness status post vertebral augmentation. COMPARISON: Head CT from 08/19/2016 TECHNIQUE: Contiguous axial imaging was performed from the skull base to vertex without intravenous administration of contrast. DLP: 600 mGy-cm FINDINGS: There is atherosclerotic calcification of carotid siphons. No acute intracranial hemorrhage, extra axial fluid collection, focal mass effect or midline shift. Again noted is mild atrophy of cerebral and cerebellar hemispheres associated with symmetric prominence of ventricles, sulci and cisterns. Patchy areas of decreased attenuation in supratentorial white matter compatible with chronic small vessel ischemic changes. 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 The calvarium is intact and the visualized paranasal sinuses, mastoid air cells and middle ear cavities are well aerated. IMPRESSION: No acute intracranial pathology compared to 08/19/2016. The critical test result was discussed with Dr. Patton at 2:08 p.m. and it was ascertained that the content of the findings was understood at the time of the direct communication.
[2016-10-20 14:23] LABS: ABSOLUTE BASOPHIL COUNT 0 /CUMM (0.0-0.2); ABSOLUTE EOSINOPHIL COUNT 0.1 /CUMM (0.0-0.7); ABSOLUTE GRANULOCYTE CT 6.3 /CUMM (1.4-6.5); ABSOLUTE LYMPH COUNT 1.1 /CUMM (1.2-3.4); ABSOLUTE MONOCYTE COUNT 0.6 /CUMM (0.10-0.60); BASOPHIL % 0.4 % (0.0-2.0); EOSINOPHIL % 0.9 % (0-5); GRANULOCYTE % 77.3 % (42.2-75.2); MEAN CORPUSCULAR HGB 28.1 PG (27.0-31.0); MEAN CORPUSCULAR HGB CONC 33.1 G/DL (33.0-37.0); MEAN CORPUSCULAR VOLUME 84.8 FL (81.0-99.0); MEAN PLATELET VOLUME 7.8 FL (7.4-10.4); PLATELET COUNT 261 /CUMM (130-400); RBC DISTRIBUTION WIDTH 13.7 % (11.5-14.5); RED BLOOD CELL CT 5.07 /CUMM (4.20-5.40); WHITE BLOOD CELL COUNT 8.1 /CUMM (4.8-10.8)
[2016-10-20 14:51] LABS: PT 11.5 SEC (9.4-12.5)
--- NOTE | 2016-10-20 14:51 | NUR ---
CRITICAL TEST RESULTS [id number] HENNA GONZALEZ 85 F TESTS AND RESULTS: TROPONIN .23 Results received and read back by: STEVE FLORES Results received date and time: 10/20/16 1451 The following provider was notified of the results, and read the results back: DR. WINTERS Notified date and time: 10/20/16 at 1445
--- NOTE | 2016-10-20 14:52 | NUR ---
PT IS CONFUSED TO DATE, TIME AND PLACE, MUMBLING. SON AT BEDSIDE.
--- NOTE | 2016-10-20 15:23 | NUR ---
ASSUMED CARE OF PT, JAW APPEARS ALMOST CROOKED TO RIGHT SIDE, PUPILS EQUAL AND REACTIVE, DIFFICULT TO ASSESS OTHER NEUROS DUE TO PT HAVING DIFFICULTY FOLLOWING COMMANDS. PT DISORIENTED X 4. SON AT BEDSIDE. VSS. PT REPOSITIONED IN BED, EXCESS LINENS REMOVED FROM UNDERNEATH PT WELL.
--- NOTE | 2016-10-20 15:34 | NUR ---
PT TURNED AND BRIEF REMOVED, BRIEF WAS DRY, PT'S SKIN INTACT, TWO SMALL AREAS OF BRUISING WELL A SMALL CROSS MARKED MID BACK. NO AREAS OF BREAK DOWN NOTED.
--- NOTE | 2016-10-20 15:45 | ED NEURO DEFICIT/STROKE ---
History of Present Illness General Chief Complaint: Neuro Symptoms/ Deficit Stated Complaint: TIA/CVA (+) TROPS Source: patient, family, old records Exam Limitations: confusion, dementia Vital Signs & Intake/Output Vital Signs & Intake/Output Vital Signs Date Time Temp Pulse Resp B/P Pulse O2 O2 Flow FiO2 Ox Delivery Rate 10/20 1526 98.3 97 20 130/70 100 Room Air 04 1449 97.3 102 18 121/70 97 Room Air 10/20 1337 85 18 134/67 97 Room Air Allergies Coded Allergies: duloxetine (From CYMBALTA) (Severe, RASH 10/15/15) Benzodiazepines (UNKNOWN PER PT 10/15/15) clarithromycin (From BIAXIN) (UNKNOWN PER PT 10/15/15) lisinopril (UNKNOWN PER PT 10/15/15) meperidine (From DEMEROL) (UNKNOWN PER PT 10/15/15) verapamil (UNKNOWN PER PT 10/15/15) Uncoded Allergies: OPIOD (Severe, N/V, DIZZINESS 10/15/15) "SEDATIVES" (UNKNOWN PER PT 10/15/15) Reconcile Medications Diltiazem HCl (Diltiazem 24HR Cd) 180 MG CAP.ER.24H 1 CAP PO DAILY HEART/BP ( Reported) Fluticasone Propionate (Flovent Hfa) 110 MCG/ACTUATION AER.W.ADAP 1 PUF INH ONCE EMPHYSEMA Magnesium Oxide 400 MG TABLET 1 TAB PO QHS SUPPLEMENT (Reported) Polyethylene Glycol 3350 (Miralax) 17 GM POWD.PACK 1 PAC PO DAILY PRN GI ( Reported) dissolve in water Quetiapine Fumarate (Seroquel) 25 MG TABLET 1 TAB PO QAM Hallucination/anxiety (Reported) Quetiapine Fumarate (Seroquel) 50 MG TABLET 1 TAB PO QPM Hallucination/anxiety (Reported) Sennosides/Docusate Sodium (Senna S Tablet) 1 EACH TABLET 2 TAB PO QHS GI ( Reported) Thyroid ([place] Thyroid) 15 MG TABLET 1 TAB PO DAILY THYROID (Reported) Tiotropium [place] (Spiriva) 18 MCG CAP.W.DEV 1 CAP INH DAILY LUNG HEALTH Tramadol HCl 50 MG TABLET 1 TAB PO Q4 HRS NEEDED PRN PAIN (Reported) Triage Note: BROUGHT TO ED VIA STRETCHER FROM INTERVENTIONAL RADIOLOGY, S/P VERTEBRAL AUGMENTATION PROCEDURE, PT WAS NOTICED TO HAVE A LEFT FACIAL DROOP WITH UPPER LIP SWELLING ON LEFT SIDE, PER IR, PT WAS LAYING ON HER STOMACH ON A FOAM PAD X [address] WINTERS. TO CT VIA STRETCHER ON PASSENGER VESSEL CHEF, WITH RN. Triage Nurses Notes Reviewed? yes Onset: Just prior to arrival Duration: minute(s):, better, constant, continues in ED Timing: recent history Severity: moderate New Weakness: right facial Altered Sensations: right facial Vision Problem? No Glaucoma? No Impaired Ability: difficult to stand, difficult to swallow, unable to sit, unable to swallow Baseline: alert but confused, memory loss, stands for transfers Associated Symptoms: confusion, weakness LMP (ages 10-50): post menopausal : No Patient currently breastfeeds: No HPI: Prior to admission patient was undergoing interventional radiology procedure vertebral augmentation sedated with ketamine and propofol. She woke with right facial droop confusion and unable to swallow. She denies fever chills nausea vomiting diarrhea abdominal pain chest pain headache dysuria rash bleeding Past History Travel History Traveled to [place] past 21 day No Medical History Any Pertinent Medical History? 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 Refer elsewhere in this and other documents for additional details. There is no other information in these categories that I am aware of and no additional information was provided by the patient on consultation evaluation today which is directly pertinent to the patient's orthopaedic consultation evaluation, assessment, recommendations or care. History of MRSA: No History of VRE: No History of CDIFF: No Surgical History Surgical History: appendectomy, hysterectomy, TONSILLECTOMY X 2 Psychosocial History Who do you live with Other (see notes) Services at Home None What is your primary language Greek Tobacco Use: Never used ETOH Use: denies use Family History Family History, If Any: FATHER (dementia). Relation not specified for: FH: bladder cancer FH: breast cancer Hx Contributory? No Review of Systems Review of Systems Constitutional: Reports: see HPI, weakness. EENTM: Reports: no symptoms. Respiratory: Reports: no symptoms. Cardiovascular: Reports: no symptoms. GI: Reports: no symptoms. Genitourinary: Reports: no symptoms. Musculoskeletal: Reports: no symptoms. Skin: Reports: no symptoms. Neurological/Psychological: Reports: see HPI, cognitive dysfunction, confusion, weakness. Hematologic/Endocrine: Reports: no symptoms. Immunologic/Allergic: Reports: no symptoms. All Other Systems: Reviewed and Negative Physical Exam Physical Exam General Appearance: well developed/nourished, alert, awake, anxious, moderate distress, thin Head: atraumatic, R facial droop Eyes: Bilateral: normal appearance, PERRL, EOMI. Ears, Nose, Throat: normal ENT inspection, moist mucous membrane Neck: normal inspection, supple, full range of motion, no midline tenderness Respiratory: normal breath sounds, chest non-tender, no respiratory distress, quiet respiration, respiratory distress Cardiovascular: regular rate/rhythm, normal peripheral pulses, norml femoral pulses equa Peripheral Pulses: 4+ carotid (R), 4+ carotid (L) Gastrointestinal: normal bowel sounds, soft, non-tender, no organomegaly Back: normal inspection, normal range of motion Extremities: normal range of motion, no ligament instability Psychiatric: alert, disoriented x 3 Cranial Nerves: normal hearing, normal speech, facial asymmetry, facial droop Coordination/Gait: ABN nose to finger (R), ABN nose to finger (L) Motor/Sensory: weak motor strength RLE, weak motor strength LLE Reflexes: 2+: bicep (R), bicep (L). Skin: normal color Lymphatic: no anterior cervical yael Core Measures CVA/TIA Diagnosis: Yes NIH Stroke Scale: Total 8 Date Last Known Well: 10/20/16 Time Last Known Well: 1100 Neurological S/S of CVA: Acute Confusion, Difficulty Speaking, Facial Hemiparesis, Slurred Speech Symptom Start Date: 10/20/16 Symptom Start Time: 1200 Reason tPA not ordered+ Surgical Contraindication Severe Sepsis Present: No Septic Shock Present: No Progress Differential Diagnosis: Frye's Palsy, drug intoxication, electrolyte imbalance, hypoglycemia, intracranial Hem., stroke, subarachnoid Hem. Plan of Care: Orders Procedure Date/time Status Patient Data 10/20 1515 Active OXYGEN SETUP (GEN) 10/20 1458 Active Saline Lock 10/20 1458 Active Admit to inpatient 10/20 1458 Active Vital Signs 10/20 1458 Active Activity/Ambulation 10/20 1458 Active Code Status 10/20 1458 Active Intake & Output 10/20 1405 Active NIH Stroke Scale 10/20 1345 Active TROPONIN LEVEL 10/20 1343 Complete PROTHROMBIN TIME 10/20 1343 Complete COMPREHENSIVE METABOLIC PANEL 10/20 1343 Complete CBC WITHOUT DIFFERENTIAL 10/20 1343 Complete EKG 10/20 1343 Active MRI-HEAD W/O POWER 10/20 UNK Active Laboratory Tests 10/20/16 1405: Anion Gap 10, Estimated GFR > 60, BUN/Creatinine Ratio 38.3 H, Glucose 117 H, Calcium 9.9, Total Bilirubin 0.6, AST 26, ALT 35, Alkaline Phosphatase 148 H, Troponin I 0.23 *H, Total Protein 7.2, Albumin 3.9, Globulin 3.3, Albumin/ Globulin Ratio 1.2, PT 11.5, INR 1.10, CBC w Diff NO MAN DIFF REQ, RBC 5.07, MCV 84.8, MCH 28.1, RDW 13.7, MPV 7.8, Gran % 77.3 H, Lymphocytes % 13.7 L, Monocytes % 7.7, Eosinophils % 0.9, Basophils % 0.4, Absolute Granulocytes 6.3, Absolute Lymphocytes 1.1 L, Absolute Monocytes 0.6, Absolute Eosinophils 0.1, Absolute Basophils 0, PUBS MCHC 33.1 Diagnostic Imaging: Viewed by Me: CT Scan. Discussed w/RAD: CT Scan. Radiology Impression: no acute abnormality Initial ED EKG: LBBB, no ST T wave changes Prior EKG: changed Rhythm Strip: normal sinus rhythm Departure Departure Time of Disposition: 1543 Disposition: STILL A PATIENT Condition: Stable Clinical Impression Primary Impression: CVA (cerebral vascular accident) Qualifiers: CVA mechanism: unspecified Qualified Code: I63.9 - Cerebral infarction, unspecified Secondary Impressions: Elevated troponin, LBBB (left bundle branch block) Referrals: ARTHUR BHAGAT,ANALIA Marshall (PCP/Family) Departure Forms: Customer Survey General Discharge Information Admission Note Spoke With: MARITA BHAGAT,ARASH Pena Documentation of Exam: Documentation of any treatments & extenuating circumstances including Concerns Regarding Discharge (functional status, medication knowledge or non-compliance, living conditions, etc.) that warrant an admission rather than observation: Cardiac monitoring serial neurologic exam MRI serial lab exam cardiology evaluation nephrology evaluation frequent neurologic checks medication adjustment continuing care discharge planning Critical Care Note Critical Care Note Critical Care Time: 30-74 min (40)
--- NOTE | 2016-10-20 16:03 | NUR ---
HOUSE STAFF AT BEDSIDE
--- NOTE | 2016-10-20 16:15 | NUR ---
PT HAS BED ASSIGNMENT 185-1
--- NOTE | 2016-10-20 16:18 | History & Physical ---
General Information and HPI MD Statement: I have seen and personally examined HENNA GONZALEZ and documented this H&P. The patient is a 85 year old F who presented with a patient stated chief complaint of [facial droop]. Source of Information: patient, old records, EMS Exam Limitations: clinical condition, confusion History of Present Illness: 85-year-old female with past medical history significant for vertigo, atypical migraine, headache, meningioma, Lyme disease, stroke in 2016 with no residual neurologic deficits, dementia, atrial fibrillation not on rate control agents and anticoagulants, hypertension, supraventricular tachycardia on Cardizem, COPD , H pylori infection, fibromyalgia, osteoarthritis, osteoporosis, fractured knee , scoliosis, anxiety, hypothyroidism, hemangioma of brain, depression, sacral and pubic rami fractures, osteoporosis Allergies/Medications Allergies: Coded Allergies: duloxetine (From CYMBALTA) (Severe, RASH 10/15/15) Benzodiazepines (UNKNOWN PER PT 10/15/15) clarithromycin (From BIAXIN) (UNKNOWN PER PT 10/15/15) lisinopril (UNKNOWN PER PT 10/15/15) meperidine (From DEMEROL) (UNKNOWN PER PT 10/15/15) verapamil (UNKNOWN PER PT 10/15/15) Uncoded Allergies: OPIOD (Severe, N/V, DIZZINESS 10/15/15) "SEDATIVES" (UNKNOWN PER PT 10/15/15) Home Med list Diltiazem HCl (Diltiazem 24HR Cd) 180 MG CAP.ER.24H 1 CAP PO DAILY HEART/BP ( Reported) Fluticasone Propionate (Flovent Hfa) 110 MCG/ACTUATION AER.W.ADAP 1 PUF INH ONCE EMPHYSEMA Magnesium Oxide 400 MG TABLET 1 TAB PO QHS SUPPLEMENT (Reported) Polyethylene Glycol 3350 (Miralax) 17 GM POWD.PACK 1 PAC PO DAILY PRN GI ( Reported) dissolve in water Quetiapine Fumarate (Seroquel) 25 MG TABLET 1 TAB PO QAM Hallucination/anxiety (Reported) Quetiapine Fumarate (Seroquel) 50 MG TABLET 1 TAB PO QPM Hallucination/anxiety (Reported) Sennosides/Docusate Sodium (Senna S Tablet) 1 EACH TABLET 2 TAB PO QHS GI ( Reported) Thyroid ([place] Thyroid) 15 MG TABLET 1 TAB PO DAILY THYROID (Reported) Tiotropium [place] (Spiriva) 18 MCG CAP.W.DEV 1 CAP INH DAILY LUNG HEALTH Tramadol HCl 50 MG TABLET 1 TAB PO Q4 HRS NEEDED PRN PAIN (Reported) Compliance With Home Meds: FAIR Past History Travel History Traveled to [place] past 21 day No Medical History Neurological: vertigo, ATYPICAL MIGRAINE HEADACH MENINGIOMA LYME DISEASE STROKE 2015 EENT: NONE Cardiovascular: AFIB, hypertension, SVT Respiratory: COPD Gastrointestinal: H PYLORI Hepatic: NONE Renal: NONE Musculoskeletal: fibromyalgia, fracture, osteoarthritis, osteoporosis, SCOLIOSIS FX KNEE Psychiatric: anxiety Endocrine: hypothyroidism Blood Disorders: NONE 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 Refer elsewhere in this and other documents for additional details. There is no other information in these categories that I am aware of and no additional information was provided by the patient on consultation evaluation today which is directly pertinent to the patient's orthopaedic consultation evaluation, assessment, recommendations or care. History of MRSA: No History of VRE: No History of CDIFF: No Surgical History Surgical History: appendectomy, hysterectomy, TONSILLECTOMY X 2 Past Family/Social History Family History Relations & Conditions if any FATHER (dementia). Relation not specified for: FH: bladder cancer FH: breast cancer Psychosocial History Who Do You Live With? grand tammi Services at Home: None ETOH Use: denies use Functional Ability ADLs Independent: dressing, eating, toileting, bathing. Ambulation: independent IADLs Independent: shopping, housework, finances, food prep, telephone, transportation , medication admin. Review of Systems Review of Systems Constitutional: Reports: see HPI. Exam & Diagnostic Data Last 24 Hrs of Vital Signs/I&O Vital Signs Date Time Temp Pulse Resp B/P Pulse O2 O2 Flow FiO2 Ox Delivery Rate 10/20 1526 98.3 97 20 130/70 100 Room Air 10/20 1449 97.3 102 18 121/70 97 Room Air 10/20 1337 85 18 134/67 97 Room Air Intake & Output 10/20 1600 / 0800 04/ 0000 Intake Total Output Total Balance Patient 110 lb Weight Assessment/Plan As Ranked By This Provider Problem List: 1. Lyme disease 2. Mitral valve prolapse 3. Supraventricular tachycardia 4. Elevated troponin 5. CVA (cerebral vascular accident) Qualifiers CVA mechanism: unspecified Qualified Code: I63.9 - Cerebral infarction, unspecified Core Measures/Miscellaneous Acute Coronary Syndrome ACS Diagnosis: Yes Cerebrovascular Accident CVA/TIA Diagnosis: Yes Date Last Known Well: 10/20/16 Time Last Known Well: 1100 Neurological S/S of CVA: Acute Confusion, Difficulty Speaking, Facial Hemiparesis, Slurred Speech Symptom Start Date: 10/20/16 Symptom Start Time: 1200 Reason tPA not ordered Surgical Contraindication Congestive Heart Failure CHF Diagnosis: No Venous Thromboembolism VTE Risk Factors: Immobility, paresis No Mech VTE prophylaxis d/t: No contraindications No VTE Pharm Prophylaxis d/t: No contraindications VTE Diagnosis: No VTE Type: NONE Severe Sepsis Severe Sepsis Present: No Septic Shock Septic Shock Present: No Miscellaneous Documentation Attending Case Discussed With: AIDA FISH MD Primary Care Physician: ANALIA GIBSON MD Level of Patient Care: Telemetry
--- NOTE | 2016-10-20 16:48 | NUR ---
PT TO MRI, AL STATING HE WILL CHANGE NIH STROKE SCALE ORDER TO Q2H
--- NOTE | 2016-10-20 16:51 | History & Physical ---
See Addendum SOURAV BHAGAT,DANIEL 10/20/16 1698: General Information and HPI MD Statement: I have seen and personally examined HENNA GONZALEZ and documented this H&P. The patient is a 85 year old F who presented with a patient stated chief complaint of [facial droop s/p vertebroplasty]. Source of Information: patient, old records, EMS Exam Limitations: clinical condition, confusion History of Present Illness: Patient is a 85-year-old female with extensive PMH notable include Lyme disease, Stroke (2016), Meningioma, Atrial Fibrillaion (not on anticoagulation) came to the ER [facility] form IR department post procedurally after undergoing vertebroplasty. She was found to have left facial droop with lip swelling after the procedure, laid on stomach during the procedure. Upon coming to the ER she was disoriented (postanesthesia), reports left lip numbness intially. Her son is at bedside, reports that she is more or less at her baseline. She appears calm, with fluctuating consciousness -- in a word salad, noncomprehensive at times and understands at times saying she is at [facility]. past medical history significant for vertigo, atypical migraine, headache, meningioma, Lyme disease, stroke in 2016 with no residual neurologic deficits, dementia, atrial fibrillation not on rate control agents and anticoagulants, hypertension, supraventricular tachycardia on Cardizem, COPD, H pylori infection , fibromyalgia, osteoarthritis, osteoporosis, fractured knee, scoliosis, anxiety , hypothyroidism, hemangioma of brain, depression, sacral and pubic rami fractures, osteoporosis. she was recently discharged from [place] on 10/18/16 due to back pain and found to have compression fracture of T12 and endplate fracture of T3, stabilized for surgery and sent to rehab for procedure today. She was allergic to opiates. Allergies/Medications Allergies: Coded Allergies: duloxetine (From CYMBALTA) (Severe, RASH 10/15/15) Benzodiazepines (UNKNOWN PER PT 10/15/15) clarithromycin (From BIAXIN) (UNKNOWN PER PT 10/15/15) lisinopril (UNKNOWN PER PT 10/15/15) meperidine (From DEMEROL) (UNKNOWN PER PT 10/15/15) verapamil (UNKNOWN PER PT 10/15/15) Uncoded Allergies: OPIOD (Severe, N/V, DIZZINESS 10/15/15) "SEDATIVES" (UNKNOWN PER PT 10/15/15) Home Med list Diltiazem HCl (Diltiazem 24HR Cd) 180 MG CAP.ER.24H 1 CAP PO DAILY HEART/BP ( Reported) Fluticasone Propionate (Flovent Hfa) 110 MCG/ACTUATION AER.W.ADAP 1 PUF INH ONCE EMPHYSEMA Magnesium Oxide 400 MG TABLET 1 TAB PO QHS SUPPLEMENT (Reported) Polyethylene Glycol 3350 (Miralax) 17 GM POWD.PACK 1 PAC PO DAILY PRN GI ( Reported) dissolve in water Quetiapine Fumarate (Seroquel) 25 MG TABLET 1 TAB PO QAM Hallucination/anxiety (Reported) Quetiapine Fumarate (Seroquel) 50 MG TABLET 1 TAB PO QPM Hallucination/anxiety (Reported) Sennosides/Docusate Sodium (Senna S Tablet) 1 EACH TABLET 2 TAB PO QHS GI ( Reported) Thyroid ([place] Thyroid) 15 MG TABLET 1 TAB PO DAILY THYROID (Reported) Tiotropium [place] (Spiriva) 18 MCG CAP.W.DEV 1 CAP INH DAILY LUNG HEALTH Tramadol HCl 50 MG TABLET 1 TAB PO Q4 HRS NEEDED PRN PAIN (Reported) Compliance With Home Meds: FAIR Past History Travel History Traveled to [place] past 21 day No Medical History Neurological: vertigo, ATYPICAL MIGRAINE HEADACH MENINGIOMA LYME DISEASE STROKE 2015 EENT: NONE Cardiovascular: AFIB, hypertension, SVT Respiratory: COPD Gastrointestinal: H PYLORI Hepatic: NONE Renal: NONE Musculoskeletal: fibromyalgia, fracture, osteoarthritis, osteoporosis, SCOLIOSIS FX KNEE Psychiatric: anxiety Endocrine: hypothyroidism Blood Disorders: NONE Cancer(s): HEMANGIOMA OF THE 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 Refer elsewhere in this and other documents for additional details. There is no other information in these categories that I am aware of and no additional information was provided by the patient on consultation evaluation today which is directly pertinent to the patient's orthopaedic consultation evaluation, assessment, recommendations or care. History of MRSA: No History of VRE: No History of CDIFF: No Surgical History Surgical History: appendectomy, hysterectomy, TONSILLECTOMY X 2 Past Family/Social History Family History Relations & Conditions if any FATHER (dementia). Relation not specified for: FH: bladder cancer FH: breast cancer Psychosocial History Where do you live? Longterm Facility Who Do You Live With? [facility] Services at Home: None Smoking Status: Unknown If Ever Smoked ETOH Use: denies use Illicit Drug Use: denies illicit drug use Functional Ability ADLs Needs Assist: dressing, eating, toileting, bathing. Ambulation: independent, walker IADLs Needs Assist: shopping, housework, finances, food prep, telephone, transportation, medication admin. Review of Systems Review of Systems Constitutional: Reports: see HPI. Comments ROS cannot be appreciated as per the clinical condition Exam & Diagnostic Data Last 24 Hrs of Vital Signs/I&O Vital Signs Date Time Temp Pulse Resp B/P Pulse O2 O2 Flow FiO2 Ox Delivery Rate 10/20 1526 98.3 97 20 130/70 100 Room Air 10/20 1449 97.3 102 18 121/70 97 Room Air 10/20 1337 85 18 134/67 97 Room Air Intake & Output 10/20 1600 10/20 0800 10/20 0000 Intake Total Output Total Balance Patient 49.895 kg Weight Physical Exam General Appearance Alert Skin bruising on the sides HEENT Atraumatic, PERRLA, EOMI Neck Supple Cardiovascular Normal S1, Normal S2, murmur present Lungs Clear to Auscultation, Normal Air Movement Abdomen Soft, No Tenderness, hypoactive bowel sounds present Neurological Strength at 5/5 X4 Ext, Normal Tone, Sensation Intact, Cranial Nerves 3-12 NL, dysarthria, babinski negative., left lower part of 7th nerve palsy Extremities No Clubbing, No Cyanosis, No Edema Vascular Normal Pulses, Pulses Symmetrical Body Front and Back (Adult) 1) droop and deviation Last 24 Hrs of Labs/Edward: Laboratory Tests 10/20/16 1405: Anion Gap 10, Estimated GFR > 60, BUN/Creatinine Ratio 38.3 H, Glucose 117 H, Calcium 9.9, Total Bilirubin 0.6, AST 26, ALT 35, Alkaline Phosphatase 148 H, Troponin I 0.23 *H, Total Protein 7.2, Albumin 3.9, Globulin 3.3, Albumin/ Globulin Ratio 1.2, PT 11.5, INR 1.10, CBC w Diff NO MAN DIFF REQ, RBC 5.07, MCV 84.8, MCH 28.1, RDW 13.7, MPV 7.8, Gran % 77.3 H, Lymphocytes % 13.7 L, Monocytes % 7.7, Eosinophils % 0.9, Basophils % 0.4, Absolute Granulocytes 6.3, Absolute Lymphocytes 1.1 L, Absolute Monocytes 0.6, Absolute Eosinophils 0.1, Absolute Basophils 0, PUBS MCHC 33.1 Diagnostic Data EKG Results Sinus rhythm, new LBBB QTc [address] head MPRESSION: No acute intracranial pathology compared to 08/19/2016. Assessment/Plan Assessment: Patient is a 85-year-old female with extensive PMH notable include Lyme disease, Stroke (2016), Meningioma, Atrial Fibrillaion (not on anticoagulation) came to the ER [facility] form IR department post procedurally after undergoing vertebroplasty. She had left facial droop and very delirious. She received IV propofol and ketamine during the procedure. ER Course VS Tmax of 98.3, Pulse 102, RR 18, BP 130/60mmHg, on room air Significnat labs Troponin of 0.23 EKG shows Sinus rhythm with new onset LBBB Imaging CT head No acute intracranial pathology compared to 08/19/2016. She received Aspirin 300mg NE in ER Plan NSTEMI with new onset LBBB * Secondary to transient hypoperfusion of coronary arteries secondary to hypotension (anesthetic meds) * EKG shows Sinus rhythm with new onset LBBB * We will trend the trops ans EKG's X3. * Received a single dose of aspirin 300PR * Last ECHO 08/2016 shows LVEF > 65%, MVP * cardiology consult. TIA * Left facial droop with numbness (rest of the neuro exam is intact) * Possibly secondary to transient decreased blood supply to brain * Significant history include Stroke in 2016, Lyme disease, Meningioma * CT head/MRI negative for any bleed * Failed swallow evaluation - will repeat tomorrow. NPO for now. * Tele monitoring with Q4 neurochecks. Left jaw deviation Status Post Verterbroplasty * Possibly secondary to positioning on the table for long time * Post operative pain need to be controlled * Follow up with surgical recommendations. * Jaw X ray if worsens. History of SVT * On diltiazem CD 180mg - we will continue History of COPD * TRC/Nebs Hypothyroidism * On thyroid 15mg at home, we will continue that. Mental health * On seroquel 25mg AM and 50mg PM - we will continue. DVT Prophylaxis * ALPS CODE STATUS * DNR/DNI As Ranked By This Provider Problem List: 1. Lyme disease 2. Mitral valve prolapse 3. Supraventricular tachycardia 4. Elevated troponin 5. LBBB (left bundle branch block) 6. CVA (cerebral vascular accident) Qualifiers CVA mechanism: unspecified Qualified Code: I63.9 - Cerebral infarction, unspecified 7. COPD (chronic obstructive pulmonary disease) Core Measures/Miscellaneous Acute Coronary Syndrome ACS Diagnosis: Yes Last Known EF % 65 NIKKO/ARB For EF <40% No ASA W/I 24hr of admit Yes LDL assessed W/I 24 hrs Yes Cerebrovascular Accident CVA/TIA Diagnosis: Yes Date Last Known Well: 10/20/16 Time Last Known Well: 1100 Neurological S/S of CVA: Acute Confusion, Difficulty Speaking, Facial Hemiparesis, Slurred Speech Symptom Start Date: 10/20/16 Symptom Start Time: 1200 Reason tPA not ordered Surgical Contraindication Congestive Heart Failure CHF Diagnosis: No Venous Thromboembolism VTE Risk Factors: Immobility, paresis [facility] prophylaxis d/t: No contraindications No VTE Pharm Prophylaxis d/t: No contraindications VTE Diagnosis: No VTE Type: NONE VTE Confirmed by (Test): NONE Severe Sepsis Severe Sepsis Present: No Septic Shock Septic Shock Present: No Miscellaneous Documentation Attending Case Discussed With: AIDA FISH MD Primary Care Physician: ANALIA GIBSON MD Patient sees these Specialists Level of Patient Care: Telemetry ANALIA CONNOR 10/20/16 2136: Resident Review Statement Resident Statement: examined this patient, discussed with editing internship, agreed with editing internship, discussed with family, reviewed EMR data (avail), discussed with nursing , reviewed images Other Findings: Mrs Gonzalez is a 85-year-old lady with a PMH of migraines, vertigo, meningioma, Lyme disease, CVA 2015 with no residual deficits, A. fib, HTN, history of SVT currently on Cardizem, COPD, fibromyalgia, osteoporosis, scoliosis, osteoarthritis, hypothyroidism, depression, anxiety and pelvic fracture/ compression fracture to T12 as recent as 08/2016 recently admitted for low back pain and discharged to [facility] in the setting of her compression fracture. She returned today for vertebroplasty surgery which successfully completed postprocedure was noted to have a left facial droop which point a rapid response was called. The patient's son reports that she was noticeably slurring his speech more than baseline right after the procedure but this may have been attribute it to anesthetic that she received. VS on arrival: BP 134/67, HR 85, RR 18, SPO2 97% on RA, T 97.3 Physical exam findings: Noticeable deviation of the lower jaw to the right, the rest of the cranial nerves intact. RRR, normal S1/S2, systolic murmur present. Lungs CTA BL. Normal bowel sounds with no tenderness to palpation. Negative Babinski. Difficulty with word finding which son mentions appears to be baseline. Pertinent labs: WBC 8.1, H&H 14.2/43.0, sodium 134, potassium 4.1, glucose 117, BUN/CR 23/0.6, chloride 101 INR 1.10 Troponin: 0.23 EKG: Sinus rhythm, HR 92 BPM. Ventricular premature complex. LBBB. NE interval 114. QTC [address]: Atherosclerotic calcification of carotid siphon. No acute intracranial hemorrhage. Mild atrophy of cerebral and cerebellar hemispheres. Patchy areas of decreased attenuation in supratentorial white matter compatible with chronic small vessel ischemic changes. 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 Stable 11.5 cm calcified meningioma of the left falx at the vertex. Problem list: 1. TIA/CVA: Likely secondary to hypoperfusion in the setting of surgery and previous history of CVA 2. Dysphagia 3. Elevated troponins 4. History of A. fib/SVT 5. COPD 6. Depression/anxiety 7. Hypertension 8. Hypothyroidism 9. Osteoarthritis Plan: * Admit to telemetry for continuous cardiac monitoring * Rule out ACS: Repeat EKG at 2000 hrs., 0200 hrs. Notify cardiology if continued elevation in troponins * Follow-up MRI of head. Will defer starting anticoagulation at this time in case of intracranial bleed * Neurochecks Q2hrs * Patient felt a bedside swallow eval. NPO at this time and MBS in the a.m. * Maintenance fluid with D5NS@50 mL an hour 1 * Continue diltiazem 180 mg daily * Continue [place] Thyroid 15 mg daily * Magnesium supplementation with goal above 2.0 * TRCs for COPD * Continue Seroquel 25 mg in the a.m., 50 mg in the p.mFor history of anxiety/ depression * Continue tramadol 50 mg PRN for pain * DVT prophylaxis: ALPs * CODE STATUS: DNR/DNI Follow-up in the a.m. * Neurology recommendations * Cardio consult * Modified barium swallow. Restart diet * Lipid panel in the a.m. And start patient on statin
--- NOTE | 2016-10-20 17:40 | Admission Certification ---
Admission Certification Certification Statement - As attending physician, I certify that at the time of - admission, based on clinical presentation, severity of - symptoms, need for further diagnostic testing and - therapeutic interventions, and risk of adverse outcomes - without in-hospital treatment, in my clinical assessment, - this patient requires an acute hospital stay for a minimum - of two nights or longer. I have also considered psychsocial - factors such as support system, advanced age, financial - issues, cognitive issues, and failed out-patient treatments, - past re-admission history, safety of patient, and lack of - compliance as applicable. Specific rationale supporting this admission is: TIA/ Stroke
--- NOTE | 2016-10-20 17:50 | PN- Att Addend ---
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, agreed w/resident/PA/WINDOW SHADE RING SEWER, discussed with family, reviewed EMR data (avail), discussed w/ nursing, discussed w/case mgmt Attending Assessment/Plan: Laboratory Tests 10/20/16 1405: Anion Gap 10, Estimated GFR > 60, BUN/Creatinine Ratio 38.3 H, Glucose 117 H, Calcium 9.9, Total Bilirubin 0.6, AST 26, ALT 35, Alkaline Phosphatase 148 H, Troponin I 0.23 *H, Total Protein 7.2, Albumin 3.9, Globulin 3.3, Albumin/ Globulin Ratio 1.2, PT 11.5, INR 1.10, CBC w Diff NO MAN DIFF REQ, RBC 5.07, MCV 84.8, MCH 28.1, RDW 13.7, MPV 7.8, Gran % 77.3 H, Lymphocytes % 13.7 L, Monocytes % 7.7, Eosinophils % 0.9, Basophils % 0.4, Absolute Granulocytes 6.3, Absolute Lymphocytes 1.1 L, Absolute Monocytes 0.6, Absolute Eosinophils 0.1, Absolute Basophils 0, PUBS MCHC 33.1 Vital Signs Date Time Temp Pulse Resp B/P Pulse O2 O2 Flow FiO2 Ox Delivery Rate 10/20 1526 98.3 97 20 130/70 100 Room Air 10/20 1449 97.3 102 18 121/70 97 Room Air 10/20 1337 85 18 134/67 97 Room Air 85-year-old female with prior medical history of stroke 1 year ago,, history of atrial fibrillation, who was recently admitted about a week ago with compression fracture and was discharged to [facility] subacute rehabilitation yesterday afternoon. Patient was in interventional radiology for vertebral augmentation procedure today. Post procedure patient developed confusion and facial droop with some slurring of speech as the anesthesia was wearing off. Patient currently still has facial droop and slight slurring of the speech on exam. Patient has good power in both lower extremities and upper extremities. No tongue fasciculations noted, extraocular muscles intact. Rapid response was called for the patient and patient was brought to the emergency room and a CT head was done which was negative for acute stroke. Patient also had a troponin checked which was high at 0.23. Cardiology was consulted and Dr. Burton recommended giving patient aspirin as well as monitoring on telemetry. Given the persistence of facial droop we are getting a MRI of the brain to further evaluate the etiology. It appears that the patient's aspirin was discontinued on last admission due to bleeding risk. I will review her previous discharge summary to find out the reason for discontinuation of aspirin. We will wait for official cardiology consult and we will also consult neurology. We will monitor her on telemetry and do frequent neuro checks every 4 hours. Given that the patient had a carotid ultrasound done about a year ago which was showing no significant stenosis we will not repeat that. Patient also had an echocardiogram done in August of this year which was showing moderate pulmonary hypertension but otherwise was normal for her age. Discussed with patient's on the care plan. Patient is DNR/DNI.
--- NOTE | 2016-10-20 18:05 | MRI REPORT ---
EXAMINATION: MR BRAIN WITHOUT CONTRAST CLINICAL INFORMATION: New onset left facial droop status post vertebral augmentation. COMPARISON: Head CT performed earlier today. TECHNIQUE: MRI of the brain without contrast was obtained using routine sequences. FINDINGS: Motion degraded study. There is no hydrocephalus, extra-axial surface collection, or herniation. There are T2 signal changes throughout the supratentorial white matter, most likely chronic microangiopathy. Chronic infarct within the left marrero radiata. The major intracranial flow voids at the skull base are preserved. The cervical arterial flow voids are not well assessed secondary to artifact. There is no acute infarct on diffusion-weighted imaging. There is no acute intracranial hemorrhage on the gradient recalled echo acquisition. There is favored chronic hemosiderin staining along the periphery of the right parietal, occipital, and temporal lobes with no acute hemorrhage identified in these areas on today's earlier noncontrast head CT. A small calcified meningioma along the high left falx cerebri is better demonstrated on today's earlier head CT. The meningioma abuts without definitely invading the superior sagittal sinus. The midline structures are normal. The cerebellar tonsils are normally positioned. The cerebellum and brainstem are normal. The craniocervical junction is normal. Osseous marrow signal intensity is homogenous. The visualized soft tissues are unremarkable. No signal abnormality within the paranasal sinuses or within the mastoid air cells. IMPRESSION: - No acute intracranial findings. There are no acute infarcts. Motion degraded study. - Mild chronic microangiopathy and a chronic infarct within the left marrero radiata. Global cerebral volume loss. - There is favored chronic hemosiderin staining along the periphery of the right parietal, occipital, and temporal lobes with no acute hemorrhage identified in these areas on today's earlier noncontrast head CT. - A small calcified meningioma along the high left falx cerebri is better demonstrated on today's earlier head CT. The meningioma abuts without definitely invading the superior sagittal sinus.
[2016-10-20 18:36] VITALS: BP 120/70
--- NOTE | 2016-10-20 19:00 | NUR ---
ADMISSION PT ARRIVED VIA STRETCHER. A+O TO SELF ONLY. NO C/O PAIN. 2 PUNCTURE SITES TO BACK ARE OPEN TO AIR, CDI. NO DRAINAGE NOTED. FOLLOWING INSTRUCTIONS. NIH 3. JAW IS DISPLACED TO THE RIGHT CAUSING MILD SLURRED SPEECH. PER , LIKELY MUSCULOSKETAL OPPOSED TO NEURO. PT IS HAVING MILD TACHYCARDIA WITH LBBB ON TELEMETRY. INTRODUCED TO STAFF AND CALL LIGHT SYSTEM. SAFETY MAINTAINED. CALL LIGHT IN REACH. BED IN LOWEST POSITION.
[2016-10-21 00:05] VITALS: BP 118/60
--- NOTE | 2016-10-21 00:19 | Event Note ---
Event Note Event Note: The patient's second troponin elevated to 1.35, there is no significant EKG changes. We contact the pcas covering the patient Dr. Goncalves, he advised that the patient will need anticoagulation but giving the history of TIA/CVA, will need neurology recommendation regarding anticoagulation in the morning before we Start AC. Also he stated that the patient the 3rd troponin are most likely will be elevated. He stated that the patient Would benefit from low dose beta debora, aspirin and statin in general. Thai Lang MD was notified.
--- NOTE | 2016-10-21 07:32 | PN- Housestaff ---
SOURAV BHAGAT,DANIEL 10/21/16 0732: Subjective Follow-up For: Left facial droop after vertebroplasty NSTEMI Tele-Events Since Last Visit: Sinus tachy 90's - 104 No overnight events Subjective: I saw and examined the patient today morning She is still delerious, speech is noncomprehensive. Facial droop appears much better, however her jaw is still deviated to left side. Review of Systems Constitutional: Reports: see HPI. Comments: ROS negative except the above. Objective Last 24 Hrs of Vital Signs/I&O Vital Signs Date Time Temp Pulse Resp B/P Pulse O2 O2 Flow FiO2 Ox Delivery Rate 10/21 0005 98.9 111 20 118/60 97 Room Air 10/20 1950 Room Air 10/20 1836 98.9 97 20 120/70 98 Room Air 04/ 1748 98.3 72 18 122/72 100 Room Air 04/ 1526 98.3 97 20 130/70 100 Room Air 04/05 1449 97.3 102 18 121/70 97 Room Air 04/05 1337 85 18 134/67 97 Room Air Intake & Output 10/21 0800 10/21 0000 10/20 1600 Intake Total Output Total Balance Patient 49.895 kg 49.895 kg Weight Physical Exam General Appearance: Alert, Cooperative, not oriented Skin: No Rashes, No Breakdown HEENT: Atraumatic, PERRLA Neck: Supple Cardiovascular: Regular Rate, Normal S1, Normal S2, systolic murmur present Lungs: Clear to Auscultation, Normal Air Movement Abdomen: Normal Bowel Sounds, Soft, No Tenderness Neurological: Normal Tone, Sensation Intact, Cranial Nerves 3-12 NL Extremities: No Clubbing, No Cyanosis, No Edema Vascular: Normal Pulses, Pulses Symmetrical Current Medications: Current Medications Sig/Ulices Start time Last Medication Dose Route Stop Time Status Admin Aspirin Buffered 325 MG DAILY 10/21 1541 AC PO Atorvastatin Calcium 40 MG 1700 10/21 1700 AC PO Atorvastatin Calcium 20 MG 1700 10/21 1700 CAN PO Dextrose/Sodium 1,000 ML ONCE ONE 10/20 2200 DC 05 Chloride IV 10/21 1759 2251 Diltiazem HCl 60 MG Q8 10/21 1506 AC 10/21 PO 1624 Diltiazem HCl 180 MG DAILY 10/21 1000 DC PO Heparin Sodium 25,000 UNIT Q24H 10/21 1700 AC 04/06 (Porcine) IV 1810 Sodium Chloride 500 ML Magnesium Oxide 400 MG AT BEDTIME 10/200 AC 10/20 PO 212 Patient Medication 1 ED ONE ONE 10/21 1415 CAN Teaching ED 10/21 1416 Polyethylene Glycol 17 GM DAILY PRN 10/20 1800 AC PO Quetiapine Fumarate 25 MG QAM 10/21 1000 AC PO Quetiapine Fumarate 50 MG QPM 10/20 2200 AC 10/20 PO 212 Senna/Docusate Sodium 2 TAB AT BEDTIME 10/20 220 AC 10/20 PO 2122 Thyroid 15 MG DAILY AC 10/21 0700 AC PO Tiotropium [place] 1 PUF DAILY 10/21 1000 AC 10/21 INH 1027 Tramadol HCl 50 MG Q4 HRS NEEDED PRN 10/20 1800 AC PO Last 24 Hrs of Lab/Edward Results Last 24 Hrs of Labs/Mics: Laboratory Tests 10/21/16 0913: D-Dimer Cancelled 10/21/16 0625: Anion Gap 9, Estimated GFR > 60, BUN/Creatinine Ratio 35.0 H, Phosphorus 3.5, Magnesium 2.1, Troponin I 1.26 *H, Triglycerides 85, Cholesterol 232 H, LDL Cholesterol, Calc 139 H, HDL Cholesterol 76 H, Cholesterol/HDL Ratio 3, CBC w Diff NO MAN DIFF REQ, RBC 4.99, MCV 85.3, MCH 28.5, RDW 14.2, MPV 8.2, Gran % 67.8, Lymphocytes % 17.4 L, Monocytes % 13.8 H, Eosinophils % 0.6, Basophils % 0.4, Absolute Granulocytes 6.2, Absolute Lymphocytes 1.6, Absolute Monocytes 1.3 H, Absolute Eosinophils 0.1, Absolute Basophils 0, PUBS MCHC 33.3 10/21/16 0200: Troponin I 1.58 *H 10/20/16 2100: Troponin I 1.35 *H Lines/Diet/Fluids Lines: peripheral lines Assessment/Plan Assessment: Patient is a 85-year-old female with extensive PMH notable include Lyme disease, Stroke (2016), Meningioma, Atrial Fibrillaion (not on anticoagulation) came to the ER [facility] IR department post procedurally after undergoing vertebroplasty. She had left facial droop and very delirious. She received IV propofol and ketamine during the procedure. ER Course VS Tmax of 98.3, Pulse 102, RR 18, BP 130/60mmHg, on room air Significnat labs Troponin of 0.23 EKG shows Sinus rhythm with new onset LBBB Imaging CT head No acute intracranial pathology compared to 08/19/2016. She received Aspirin 300mg AK in ER Plan NSTEMI Probably Secondary to transient hypoperfusion of coronary arteries secondary to hypotension (anesthetic meds). Last ECHO 08/2016 shows LVEF > 65%, MVP. A single dose of Perrectal aspirin 300mg given in ER. * EKG shows Sinus rhythm with new onset LBBB initially which later flipped. * Troponins trended down 0.23 --> 1.35 --> 1.58 -->1.26 * Started on ACS protocol IV heparin after ruling out CVA, PE (guiac negative). * cardiology consulted. Spoke with the family about the condition, prognosis, available options and patient wishes in detail. Agreed for a conservative approach. Suspected PE * S/P surgery, flipped T waves on EKG, elevated trops, Immobilization (1.5points ), Tachycardia (1.5 points), on room air. * wells score - 3, PERC does not rule out PE * CTA chest done - negative for PE Suspected TIA * Passed swallow evaluation today - started on diet * No facial droop today, so probably secondary to nerve pressing on the left jaw due to abnormal positioning. * CT and MRI negative for any acute intracranial pathology. Left jaw deviation Status Post Verterbroplasty * Possibly secondary to prone positioning on the table for long time during surgery. * Post operative pain need to be controlled * Jaw X ray if worsens. History of SVT * On diltiazem CD 180mg at home, started on cardizem 60mg Q8 as she is on pureed diet (need to be crushed). History of COPD * TRC/Nebs Hypothyroidism * On thyroid 15mg at home, we will continue that. * TSH and free T4 are normal. Mental health * On seroquel 25mg AM and 50mg PM - we will continue. DVT Prophylaxis * ALPS CODE STATUS * DNR/DNI Problem List: 1. Lyme disease 2. Supraventricular tachycardia 3. Palpitations 4. Elevated troponin 5. Fracture of T12 vertebra 6. NSTEMI (non-ST elevated myocardial infarction) Pain Ratin Pain Location: n/a Pain Goal: Pain 4 or less Pain Plan: Tramadol Q4 Tomorrow's Labs & Rationales: cbc as patient is on heparin drip and postoperative bep to monitor renal function troponin level. AIDA FISH MD 10/21/16 1149: Attending MD Review Statement Attending Statement Attending MD Statement: examined this patient, discuss w/resident/PA/HOMICIDE SQUAD SERGEANT, agreed w/resident/PA/HOMICIDE SQUAD SERGEANT, reviewed EMR data (avail) Attending Assessment/Plan: 85F PMH dementia, paroxysmal atrial fibrillation not on anti-coagulation, history of SVT, lumbar vertebral compression fracture s/p vertebroplasty on 10/20, admitted after procedure, found to have confusion and left facial droop. Concern was for acute CVA initially. Today patient is at her baseline mental status, cooperative, alert, still confused (though this is the same as her mental status during her previous admission). She does not have a facial droop at this time and cranial nerve and neuro exam is grossly normal. She reports her back pain is improved. EKG from 10/20 showed flattened anterior T-waves and increased troponin to peak of 1.58 in the setting of NSTEMI. She denies chest pain. Plan - Continue on telemetry - Follow cardiology recommendations - Favor conservative approach to NSTEMI, recruiting intern has discussed this with family who agree with plan - Restart ASA - May start statin - WIll continue Cardizem for history of SVT - Obtain CTA chest to rule out pulmonary embolism - Neurology consult - Continue home medications - DVT PPx - Will discuss anti-coagulation with family
[2016-10-21 08:01] VITALS: BP 110/70
[2016-10-21 08:25] LABS: ABSOLUTE BASOPHIL COUNT 0 /CUMM (0.0-0.2); ABSOLUTE EOSINOPHIL COUNT 0.1 /CUMM (0.0-0.7); ABSOLUTE GRANULOCYTE CT 6.2 /CUMM (1.4-6.5); ABSOLUTE LYMPH COUNT 1.6 /CUMM (1.2-3.4); ABSOLUTE MONOCYTE COUNT 1.3 /CUMM (0.10-0.60); BASOPHIL % 0.4 % (0.0-2.0); EOSINOPHIL % 0.6 % (0-5); GRANULOCYTE % 67.8 % (42.2-75.2); HEMATOCRIT 42.6 % (37-47); MEAN CORPUSCULAR HGB 28.5 PG (27.0-31.0); MEAN CORPUSCULAR HGB CONC 33.3 G/DL (33.0-37.0); MEAN CORPUSCULAR VOLUME 85.3 FL (81.0-99.0); MEAN PLATELET VOLUME 8.2 FL (7.4-10.4); PLATELET COUNT 287 /CUMM (130-400); RBC DISTRIBUTION WIDTH 14.2 % (11.5-14.5); RED BLOOD CELL CT 4.99 /CUMM (4.20-5.40); WHITE BLOOD CELL COUNT 9.2 /CUMM (4.8-10.8)
--- NOTE | 2016-10-21 09:53 | Cons- Cardiology ---
See Addendum General Information and HPI Consulting Request Date of Consult: 10/21/16 Requested By: AIDA FISH MD Reason for Consult: Abnormal troponin Source of Information: old records Exam Limitations: unable to give history, patient's age, confusion, dementia, poor historian History of Present Illness: History of Present Illness: Patient is a 85-year-old female with extensive PMH notable include Lyme disease, Stroke (2016), Meningioma, Atrial Fibrillaion (not on anticoagulation) came to the ER [facility] form IR department post procedurally after undergoing vertebroplasty. She was found to have left facial droop with lip swelling after the procedure, laid on stomach during the procedure. Upon coming to the ER she was disoriented (postanesthesia), reports left lip numbness intially. Her son is at bedside, reports that she is more or less at her baseline. She appears calm, with fluctuating consciousness -- in a word salad, noncomprehensive at times and understands at times saying [facility]. past medical history significant for vertigo, atypical migraine, headache, meningioma, Lyme disease, stroke in 2016 with no residual neurologic deficits, dementia, atrial fibrillation not on rate control agents and anticoagulants, hypertension, supraventricular tachycardia on Cardizem, COPD, H pylori infection , fibromyalgia, osteoarthritis, osteoporosis, fractured knee, scoliosis, anxiety , hypothyroidism, hemangioma of brain, depression, sacral and pubic rami fractures, osteoporosis. she was recently discharged from [facility] on 10/18/16 due to back pain and found to have compression fracture of T12 and endplate fracture of T3, stabilized for surgery and sent to rehab for procedure today. She was allergic to opiates. The patient has not seen me in more than 10 years. 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 From my memory she had a history of supraventricular tachycardia in the past and maybe even paroxysmal atrial fibrillation. She was recommended radiofrequency ablation by Dr. Dillon Dong who has been her manager social work in the past although I'm uncertain if she has seen anybody in the last 15 years. I see she is currently is on diltiazem. She is a poor historian and probably has dementia although I am not familiar with her neurological status for the last 10 years. Consultation was called because of positive troponin level. No history is available from the patient Allergies/Medications Allergies: Coded Allergies: duloxetine (From CYMBALTA) (Severe, RASH 10/15/15) Benzodiazepines (UNKNOWN PER PT 10/15/15) clarithromycin (From BIAXIN) (UNKNOWN PER PT 10/15/15) lisinopril (UNKNOWN PER PT 10/15/15) meperidine (From DEMEROL) (UNKNOWN PER PT 10/15/15) verapamil (UNKNOWN PER PT 10/15/15) Uncoded Allergies: OPIOD (Severe, N/V, DIZZINESS 10/15/15) "SEDATIVES" (UNKNOWN PER PT 10/15/15) Home Med List: Diltiazem HCl (Diltiazem 24HR Cd) 180 MG CAP.ER.24H 1 CAP PO DAILY HEART/BP ( Reported) Fluticasone Propionate (Flovent Hfa) 110 MCG/ACTUATION AER.W.ADAP 1 PUF INH ONCE EMPHYSEMA Magnesium Oxide 400 MG TABLET 1 TAB PO QHS SUPPLEMENT (Reported) Polyethylene Glycol 3350 (Miralax) 17 GM POWD.PACK 1 PAC PO DAILY PRN GI ( Reported) dissolve in water Quetiapine Fumarate (Seroquel) 25 MG TABLET 1 TAB PO QAM Hallucination/anxiety (Reported) Quetiapine Fumarate (Seroquel) 50 MG TABLET 1 TAB PO QPM Hallucination/anxiety (Reported) Sennosides/Docusate Sodium (Senna S Tablet) 1 EACH TABLET 2 TAB PO QHS GI ( Reported) Thyroid ([place] Thyroid) 15 MG TABLET 1 TAB PO DAILY THYROID (Reported) Tiotropium [place] (Spiriva) 18 MCG CAP.W.DEV 1 CAP INH DAILY LUNG HEALTH Tramadol HCl 50 MG TABLET 1 TAB PO Q4 HRS NEEDED PRN PAIN (Reported) Current Medications: Current Medications Sig/Ulices Start time Last Medication Dose Route Stop Time Status Admin Aspirin 300 MG ONCE ONE 10/20 1500 DC OK 10/20 1501 Dextrose/Sodium 1,000 ML ONCE ONE 10/20 2200 AC 10/20 Chloride IV 10/21 1759 2251 Diltiazem HCl 180 MG DAILY 10/21 1000 AC PO Fluticasone 1 PUF ONCE ONE 10/20 1800 DC 10/20 Propionate INH 10/20 180 2123 Magnesium Oxide 400 MG AT BEDTIME 10/20 2200 AC /05 PO 212 Polyethylene Glycol 17 GM DAILY PRN 10/20 1800 AC PO Quetiapine Fumarate 25 MG QAM 10/21 1000 AC PO Quetiapine Fumarate 50 MG QPM 10/20 2200 AC 10/20 PO 2122 Senna/Docusate Sodium 2 TAB AT BEDTIME 10/20 2199 AC 10/20 PO 2122 Thyroid 15 MG DAILY AC 10/21 0700 AC PO Tiotropium [place] 1 PUF DAILY 10/21 1000 AC INH Tramadol HCl 50 MG Q4 HRS NEEDED PRN 10/20 1800 AC PO Review of Systems Review of Systems: Review of systems is unavailable since the patient is a poor historian Past History Travel History Traveled to [place] past 21 day No Medical History Neurological: vertigo, ATYPICAL MIGRAINE HEADACH MENINGIOMA LYME DISEASE STROKE 2015 EENT: NONE Cardiovascular: AFIB, hypertension, SVT Respiratory: COPD Gastrointestinal: H PYLORI Hepatic: NONE Renal: NONE Musculoskeletal: fibromyalgia, fracture, osteoarthritis, osteoporosis, SCOLIOSIS FX KNEE Psychiatric: anxiety Endocrine: hypothyroidism Blood Disorders: NONE Cancer(s): 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 Refer elsewhere in this and other documents for additional details. There is no other information in these categories that I am aware of and no additional information was provided by the patient on consultation evaluation today which is directly pertinent to the patient's orthopaedic consultation evaluation, assessment, recommendations or care. Surgical History Surgical History: appendectomy, hysterectomy, TONSILLECTOMY X 2 Family History Relations & Conditions If Any: FATHER (dementia). Relation not specified for: FH: bladder cancer FH: breast cancer Psychosocial History Where Do You Live? Assisted Living Who Do You Live With? [facility] Services at Home: None Smoking Status: Never Smoked ETOH Use: denies use Illicit Drug Use: denies illicit drug use Functional Ability ADLs Needs Assist: dressing, eating, toileting, bathing. Ambulation: independent, walker IADLs Needs Assist: shopping, housework, finances, food prep, telephone, transportation, medication admin. Exam & Diagnostic Data Vital Signs and I&O Vital Signs Date Time Temp Pulse Resp B/P Pulse O2 O2 Flow FiO2 Ox Delivery Rate 10/21 0801 98.1 95 20 110/70 97 Room Air 10/21 0005 98.9 111 20 118/60 97 Room Air / 1950 Room Air 10/20 1836 98.9 97 20 120/70 98 Room Air 10/20 1748 98.3 72 18 122/72 100 Room Air 10/20 1526 98.3 97 20 130/70 100 Room Air 10/20 1449 97.3 102 18 121/70 97 Room Air 10/20 1337 85 18 134/67 97 Room Air Intake & Output 10/21 0810/21 0000 10/20 1600 10/20 0810/20 0000 Intake Total 400 Output Total 500 Balance -100 Intake, IV 400 Intake, Oral 0 Output, Urine 500 Patient 110 lb 110 lb Weight Physical Exam: In general exam patient confused Head normocephalic atraumatic. Face facial asymmetry noted with the loss of left nasolabial fold. Eyes sclera anicteric conjunctiva showed no pallor extraocular muscles were normal Neck no jugular venous distention no thyroid masses no palpable nodes no carotid bruits Chest lungs were clear bilaterally Heart regular rhythm with a 1 to 2/6 systolic murmur Abdomen soft no organomegaly bowel sounds normal Extremities no clubbing cyanosis or pedal edema extended neurological no gross motor deficit. Sensory could not be checked. Patient is confused. Labs/Edward Results: Laboratory Tests 10/21 10/21 10/20 0625 0200 2100 Chemistry Sodium (137 - 145 mmol/L) 139 Potassium (3.5 - 5.1 mmol/L) 3.8 Chloride (98 - 107 mmol/L) 103 Carbon Dioxide (22 - 30 mmol/L) 27 Anion Gap (5 - 16) 9 BUN (7 - 17 mg/dL) 21 H Creatinine (0.5 - 1.0 mg/dL) 0.6 Estimated GFR (>60 ml/min) > 60 BUN/Creatinine Ratio (7 - 25 %) 35.0 H Phosphorus (2.5 - 4.5 mg/dL) 3.5 Magnesium (1.6 - 2.3 mg/dL) 2.1 Troponin I (< 0.11 ng/ml) 1.26 *H 1.58 *H 1.35 *H Triglycerides (<150 mg/dL) 85 Cholesterol (<200 MG/DL) 232 H LDL Cholesterol, Calc (65 - 129 mg/dL) 139 H HDL Cholesterol (40 - 60 mg/dL) 76 H Cholesterol/HDL Ratio (0.00 - 4.23 %) 3 Hematology CBC w Diff NO MAN DIFF REQ WBC (4.8 - 10.8 /CUMM) 9.2 RBC (4.20 - 5.40 /CUMM) 4.99 Hgb (12.0 - 16.0 G/DL) 14.2 Hct (37 - 47 %) 42.6 MCV (81.0 - 99.0 FL) 85.3 MCH (27.0 - 31.0 PG) 28.5 RDW (11.5 - 14.5 %) 14.2 Plt Count (130 - 400 /CUMM) 287 MPV (7.4 - 10.4 FL) 8.2 Gran % (42.2 - 75.2 %) 67.8 Lymphocytes % (20.5 - 51.1 %) 17.4 L Monocytes % (1.7 - 9.3 %) 13.8 H Eosinophils % (0 - 5 %) 0.6 Basophils % (0.0 - 2.0 %) 0.4 Absolute Granulocytes (1.4 - 6.5 /CUMM) 6.2 Absolute Lymphocytes (1.2 - 3.4 /CUMM) 1.6 Absolute Monocytes (0.10 - 0.60 /CUMM) 1.3 H Absolute Eosinophils (0.0 - 0.7 /CUMM) 0.1 Absolute Basophils (0.0 - 0.2 /CUMM) 0 PUBS MCHC (33.0 - 37.0 G/DL) 33.3 04/05 1405 Chemistry Sodium (137 - 145 mmol/L) 134 L Potassium (3.5 - 5.1 mmol/L) 4.1 Chloride (98 - 107 mmol/L) 101 Carbon Dioxide (22 - 30 mmol/L) 23 Anion Gap (5 - 16) 10 BUN (7 - 17 mg/dL) 23 H Creatinine (0.5 - 1.0 mg/dL) 0.6 Estimated GFR (>60 ml/min) > 60 BUN/Creatinine Ratio (7 - 25 %) 38.3 H Glucose (65 - 99 mg/dL) 117 H Calcium (8.4 - 10.2 mg/dL) 9.9 Phosphorus (2.5 - 4.5 mg/dL) 3.2 Magnesium (1.6 - 2.3 mg/dL) 2.1 Total Bilirubin (0.2 - 1.3 mg/dL) 0.6 AST (14 - 36 U/L) 26 ALT (9 - 52 U/L) 35 Alkaline Phosphatase (<127 U/L) 148 H Troponin I (< 0.11 ng/ml) 0.23 *H Total Protein (6.3 - 8.2 g/dL) 7.2 Albumin (3.5 - 5.0 g/dL) 3.9 Globulin (1.9 - 4.2 gm/dL) 3.3 Albumin/Globulin Ratio (1.1 - 2.2 %) 1.2 Coagulation PT (9.4 - 12.5 SEC) 11.5 INR (0.90 - 1.19) 1.10 Hematology CBC w Diff NO MAN DIFF REQ WBC (4.8 - 10.8 /CUMM) 8.1 RBC (4.20 - 5.40 /CUMM) 5.07 Hgb (12.0 - 16.0 G/DL) 14.2 Hct (37 - 47 %) 43.0 MCV (81.0 - 99.0 FL) 84.8 MCH (27.0 - 31.0 PG) 28.1 RDW (11.5 - 14.5 %) 13.7 Plt Count (130 - 400 /CUMM) 261 MPV (7.4 - 10.4 FL) 7.8 Gran % (42.2 - 75.2 %) 77.3 H Lymphocytes % (20.5 - 51.1 %) 13.7 L Monocytes % (1.7 - 9.3 %) 7.7 Eosinophils % (0 - 5 %) 0.9 Basophils % (0.0 - 2.0 %) 0.4 Absolute Granulocytes (1.4 - 6.5 /CUMM) 6.3 Absolute Lymphocytes (1.2 - 3.4 /CUMM) 1.1 L Absolute Monocytes (0.10 - 0.60 /CUMM) 0.6 Absolute Eosinophils (0.0 - 0.7 /CUMM) 0.1 Absolute Basophils (0.0 - 0.2 /CUMM) 0 PUBS MCHC (33.0 - 37.0 G/DL) 33.1 Diagnostic Data EKG Results EKG on 10/20/2016 reveals sinus rhythm and was within normal limits. Electrocardiogram on 10/20/2026 at 1359 revealed sinus with intraventricular conduction delay suggestive of left bundle branch block and left axis deviation with normal discordant secondary T-wave changes electrocardiogram serially demonstrate sinus rhythm with left bundle branch block and concordant t-wave changes with a different axis which are clearly abnormal CXR Results Unavailable Other Results MRI of the head No acute intracranial findings. There are no acute infarcts. Motion degraded study. - Mild chronic microangiopathy and a chronic infarct within the left marrero radiata. Global cerebral volume loss. - There is favored chronic hemosiderin staining along the periphery of the right parietal, occipital, and temporal lobes with no acute hemorrhage identified in these areas on today's earlier noncontrast head CT. - A small calcified meningioma along the high left falx cerebri is better demonstrated on today's earlier head CT. The meningioma abuts without definitely invading the superior sagittal sinus. Assessment/Plan Assessment/Plan In summary this 85-year-old female was admitted after a vertebral plasty procedure with the following problems #1. Facial asymmetry suspicious for cerebral ischemia. Reportedly previous history of CVA. Reportedly previous history of paroxysmal atrial fibrillation and either refused anticoagulation but has been lost to follow-up with me. #2. Positive troponin. This is somewhat of a flat curve and could be related to supply demand mismatch. The associated change in T-wave axis related to her left bundle branch block could suggest primary ischemia or right ventricular strain. She will need an echocardiogram and perhaps a CTA of the chest to rule out pulmonary embolism. Of note she is a poor historian has dementia and has predisposition for venous thromboembolism. She has been relatively immobile lately and recently had a vertebral plasty. #3 dementia. I would want to be conservative in her approach from a cardiac standpoint because of underlying dementia. I received records from her manager social work and have discussed with the house staff to interact with the family and stressed a more conservative approach. #4. History of SVT and perhaps paroxysmal atrial fibrillation. An argument can be made to reinitiate anticoagulation if the family agrees. Novel anticoagulants particularly Rivoraxaban can be used and has some cardiac benefit in patients in patients with coronary artery disease and atrial fibrillation. Timing of initiation of any anticoagulants should be cleared with interventional radiology who performed the vertebroplasty procedure. Consult Acknowledgment - Thank you for your consult request.
--- NOTE | 2016-10-21 10:26 | Event Note ---
Event Note Event Note: Situation and myself () Discussed plan of care with family Back Ground Patient is a 85 YO F with SVT, dementia in the past, now in NSTEMI after vertebroplasty. She is DNR/DNI and not oriented now. we extensively discussed with her son hemal Rao at 10:00am this morning regarding her condition including NSTEMI and suspicion for PE. In view of her age, mentation, comorbid conditions, prognosis, patients wishes we explained the family about conservative approach rather than cath. Her son agreed for conservatively treating her with medications, anticoagulation (fci if required) at this point. Assessment * As her troponins are elevated with flipping of T waves s/p surgery we obtained a CT angio to rule out PE * Obtained Neuro input regarding her left facial droop - they ruled out acute intracranial event. No Contraindication for anticoagulation. Plan * We will treat patient conservatively with anticoagulation - no plans for cath. * As CTA negative for PE, no vascular pathology in the brain we started the patient on IV heparin after guiac test is done (guiac). Records from office in am Patient is following from 2014, we obtained records in the am. Only significant rhthm abnormality available is PSVT on cardizem 180CD since long time. There is no documentation of A.Fibrillation in any of the records. In addition there is no evidence of any old infarct in the CT/MRI.
--- NOTE | 2016-10-21 12:53 | CT SCAN REPORT ---
EXAMINATION: CT ANGIOGRAM OF THE CHEST WITH AND WITHOUT CONTRAST (CT PULMONARY ANGIOGRAM FOR PE) CLINICAL INFORMATION: Reason for Study:
Presumptive Dx: pulmonary embolus
Signs Symptoms: s/p vertebroplasty, immobile, elevated troponins
COMPARISON: CT dated 07/30/2015 TECHNIQUE: Prior to contrast administration, noncontrast localization images were obtained. Subsequently, multidetector volumetric imaging was performed from the thoracic inlet to below the diaphragms following the administration of 80 mL Omnipaque 350 intravenous contrast. No contrast reaction reported. Sagittal, coronal, and MIP oblique sagittal reformatted images were obtained on the CT workstation, uploaded to PACS, and reviewed. Findings: No filling defect to suggest pulmonary embolism. Centrally no evidence for bulky adenopathy. Imaging lung [place]. Right lung; Some new groundglass change in the right upper lung anterior midlung zone consistent with small areas of infiltrate. Some minimal posterior markings may be due to dependent atelectasis. Probable apical scarring. Left lung; Again probable apical scarring here. Unchanged from previous. Again probable dependent atelectasis and minimal pleural change. IMPRESSION: No filling defect to suggest a pulmonary embolism here. Some scattered areas of groundglass change which are new in the right upper lung anterior midlung zone most consistent with small areas of acute infiltrate. Some mild dependent atelectasis bilaterally.
--- NOTE | 2016-10-21 13:39 | Cons- Neurology ---
General Information and HPI Consulting Request Date of Consult: 10/21/16 Requested By: AIDA FISH MD History of Present Illness: 85-year-old female with history of prior CVA, reportedly without residual deficit, a small meningioma, COPD and atrial fibrillation not on anticoagulation , underwent a vertebroplasty due to a T12 compression fracture. She was lying prone for the procedure. Following the procedure, she was reported to have "left facial droop and some facial swelling" which has reportedly improved. Due to concern for stroke, the patient underwent a CAT scan of the brain and an MRI. No acute abnormalities were identified. An old subcortical infarct was identified. Neurology has been asked to assess. Allergies/Medications Allergies: Coded Allergies: duloxetine (From CYMBALTA) (Severe, RASH 10/15/15) Benzodiazepines (UNKNOWN PER PT 10/15/15) clarithromycin (From BIAXIN) (UNKNOWN PER PT 10/15/15) lisinopril (UNKNOWN PER PT 10/15/15) meperidine (From DEMEROL) (UNKNOWN PER PT 10/15/15) verapamil (UNKNOWN PER PT 10/15/15) Uncoded Allergies: OPIOD (Severe, N/V, DIZZINESS 10/15/15) "SEDATIVES" (UNKNOWN PER PT 10/15/15) Home Med List: Diltiazem HCl (Diltiazem 24HR Cd) 180 MG CAP.ER.24H 1 CAP PO DAILY HEART/BP ( Reported) Fluticasone Propionate (Flovent Hfa) 110 MCG/ACTUATION AER.W.ADAP 1 PUF INH ONCE EMPHYSEMA Magnesium Oxide 400 MG TABLET 1 TAB PO QHS SUPPLEMENT (Reported) Polyethylene Glycol 3350 (Miralax) 17 GM POWD.PACK 1 PAC PO DAILY PRN GI ( Reported) dissolve in water Quetiapine Fumarate (Seroquel) 25 MG TABLET 1 TAB PO QAM Hallucination/anxiety (Reported) Quetiapine Fumarate (Seroquel) 50 MG TABLET 1 TAB PO QPM Hallucination/anxiety (Reported) Sennosides/Docusate Sodium (Senna S Tablet) 1 EACH TABLET 2 TAB PO QHS GI ( Reported) Thyroid ([place] Thyroid) 15 MG TABLET 1 TAB PO DAILY THYROID (Reported) Tiotropium [place] (Spiriva) 18 MCG CAP.W.DEV 1 CAP INH DAILY LUNG HEALTH Tramadol HCl 50 MG TABLET 1 TAB PO Q4 HRS NEEDED PRN PAIN (Reported) Review of Systems Review of Systems: Limited due to confusion Past History Travel History Traveled to [place] past 21 day No Medical History Neurological: vertigo, ATYPICAL MIGRAINE HEADACH MENINGIOMA LYME DISEASE STROKE 2015 EENT: NONE Cardiovascular: AFIB, hypertension, SVT Respiratory: COPD Gastrointestinal: H PYLORI Hepatic: NONE Renal: NONE Musculoskeletal: fibromyalgia, fracture, osteoarthritis, osteoporosis, SCOLIOSIS FX KNEE Psychiatric: anxiety Endocrine: hypothyroidism Blood Disorders: NONE Cancer(s): 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 Refer elsewhere in this and other documents for additional details. There is no other information in these categories that I am aware of and no additional information was provided by the patient on consultation evaluation today which is directly pertinent to the patient's orthopaedic consultation evaluation, assessment, recommendations or care. Surgical History Surgical History: appendectomy, hysterectomy, TONSILLECTOMY X 2 Family History Relations & Conditions If Any: FATHER (dementia). Relation not specified for: FH: bladder cancer FH: breast cancer Psychosocial History Where Do You Live? Assisted Living Who Do You Live With? [facility] Services at Home: None Smoking Status: Never Smoked ETOH Use: denies use Illicit Drug Use: denies illicit drug use Functional Ability ADLs Needs Assist: dressing, eating, toileting, bathing. Ambulation: independent, walker IADLs Needs Assist: shopping, housework, finances, food prep, telephone, transportation, medication admin. Exam & Diagnostic Data Vital Signs and I&O Vital Signs Date Time Temp Pulse Resp B/P Pulse O2 O2 Flow FiO2 Ox Delivery Rate 10/21 0801 98.1 95 20 110/70 97 Room Air 10/21 0005 98.9 111 20 118/60 97 Room Air 10/20 1950 Room Air 10/20 1836 98.9 97 20 120/70 98 Room Air 10/20 1748 98.3 72 18 122/72 100 Room Air 10/20 1526 98.3 97 20 130/70 100 Room Air 10/20 1449 97.3 102 18 121/70 97 Room Air 10/20 1337 85 18 134/67 97 Room Air Intake & Output 10/21 1600 04/06 0800 10/21 0000 Intake Total 400 Output Total 500 Balance -100 Intake, IV 400 Intake, Oral 0 Output, Urine 500 Patient 110 lb Weight Elderly white female in no acute distress. She was awake, alert but easily distracted. She was disoriented to time. She could not name the current president. She was able to identify simple objects such as a watch and a pen without anomia. Pupils were equal. Extraocular movements were full. There was no nystagmus. She had mild facial asymmetry without clear-cut facial weakness. Brow wrinkle, eye closure and grimace were largely symmetric. Tongue was midline. The motor examination showed no gross focal or lateralizing weakness. Deep tendon reflexes were hypoactive. Plantar responses were flexor. There was no ataxia [id number] testing. The gait was not evaluated. Assessment/Plan Assessment: Ms. Rao has minor facial asymmetry which is of unclear etiology. 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 She is a poor historian and cannot elaborate further. Alternatively, as there was reported "swelling" of the face, this merely may have represented some local pressure on the face due to prolonged prone positioning. I would not pursue further testing. Please feel free to call with any further questions. Recommendations: As above. Consult Acknowledgment - Thank you for your consult request.
--- NOTE | 2016-10-21 14:44 | Patient Discharge Instructions ---
Discharge Instructions General Discharge Information You were seen/treated for: TIA NSTEMI/Demand ischaemia Special Instructions: Please call and make a follow-up with your primary care physician within 1 week after discharge Please follow up with in a week Diet Recommended Diet: Heart Healthy Activity Full Activity/No Limits: No Activity Self Limited: Yes Acute Coronary Syndrome Inclusion Criteria At DC or during hospital stay patient has or had the following: ACS DIAGNOSIS No Discharge Core Measures Meds if any: Prescribed or Continued at Discharge Meds if any: NOT Prescribed or Continued at Discharge Congestive Heart Failure Inclusion Criteria At DC or during hospital stay patient has or had the following: CHF DIAGNOSIS No Discharge Core Measures Meds if any: Prescribed or Continued at Discharge Meds if any: NOT Prescribed or Continued at Discharge Cerebrovascular accident Inclusion Criteria At DC or during hospital stay patient has or had the following: CVA/TIA Diagnosis Yes Discharge Core Measures Meds if any: Prescribed or Continued at Discharge Antithrombotic Yes Statin (required if LDL =>70) Yes Anticoagulant No Meds if any: NOT Prescribed or Continued at Discharge Venous thromboembolism Inclusion Criteria VTE Diagnosis No VTE Type NONE VTE Confirmed by (Test) NONE Discharge Core Measures - Per Current guidelines, there needs to be overlap - treatment for the first 5 days of Warfarin therapy. - If discharged on Warfarin prior to 5 days of - overlap therapy, the patient will need to be - assessed for post discharge needs including - *Post discharge parental anticoagulation - *Warfarin and/or parental anticoagulation education - *Follow up date to check INR post discharge At least 5 days overlap therapy as Inpatient No Meds if any: Prescribed or Continued at Discharge Note: Overlap Therapy is Warfarin and Anticoagulant Meds if any: NOT Prescribed or Continued at Discharge
--- NOTE | 2016-10-21 14:58 | Discharge Summary ---
Visit Information Visit Dates Admission Date: 10/20/16 Discharge Date: 10/24/2016 Hospital Course Course Attending Physician: AIDA FISH MD Primary Care Physician: ANALIA GIBSON MD Hospital Course: This is a 85-year-old lady with a PMH of migraines, vertigo, meningioma, Lyme disease, CVA 2016 with no residual deficits, A. fib, HTN, history of SVT currently on Cardizem, COPD, fibromyalgia, osteoporosis, scoliosis, osteoarthritis, hypothyroidism, depression, anxiety and pelvic fracture/ compression fracture to T12 as recent as 08/2016 recently admitted for low back pain and discharged to [facility] in the setting of her compression fracture. She returned today for vertebroplasty surgery which successfully completed postprocedure was noted to have a left facial droop which point a rapid response was called. The patient's son reports that she was noticeably slurring his speech more than baseline right after the procedure but this may have been attributed to anesthetic that she received. Patient was admitted to the telemetry floor and we managed her for the following conditions. TIA Presented with acute neurological changes. Initially the patient failed a swallow evaluation but the next day she passed a swallow evaluation and was started on oral feeds. Patient had a stat CT scan which was negative for any acute insult and repeated MRI did not pick any neurological findings. She was seen by neurologist Dr. 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 The event is unlikely to be a transient ischemic attack. There is no need of further neurological testing. Non-ST elevated myocardial infarction Patient had a moderate increase in troponin without corresponding chest pain. Initially the patient was not anticoagulated because of fear of stroke. With finding of negative MRI she was started on IV heparin. No arrhythmias were observed and patient is being discharged without chronic anticoagulations. Echocardiogram showed evidence of Takatsubo's cardiomyopathy. Compression fracture of vertebra Status post vertebroplasty at T12 patient reports improvement in back pain. Supraventricular tachycardia Patient has history of supraventricular tachycardia and is on Diltiazem 60mg Q8. The patient on his home dose of diltiazem. He was kept on nail technician during the course of the stay and there is no arrhythmias observed. Patient is demented and cannot articulate the story behind supraventricular tachycardia. It appears that she does not need on anticoagulation. She is being discharged on her home dose of diltiazem. Hypothyroidism HEENT has history of hypothyroidism and is on thyroid 15mg. was continued on the same dose of the medication. Dementia Patient has history of dementia. was kept on her home dose of Seroquel. remained within her baseline mentation. Complications: None Allergies: Coded Allergies: duloxetine (From CYMBALTA) (Severe, RASH 10/15/15) Benzodiazepines (UNKNOWN PER PT 10/15/15) clarithromycin (From BIAXIN) (UNKNOWN PER PT 10/15/15) lisinopril (UNKNOWN PER PT 10/15/15) meperidine (From DEMEROL) (UNKNOWN PER PT 10/15/15) verapamil (UNKNOWN PER PT 10/15/15) Uncoded Allergies: OPIOD (Severe, N/V, DIZZINESS 10/15/15) "SEDATIVES" (UNKNOWN PER PT 10/15/15) Significant Procedures: MRI of the head - No acute intracranial findings. There are no acute infarcts. Motion degraded study. - Mild chronic microangiopathy and a chronic infarct within the left marrero radiata. Global cerebral volume loss. - There is favored chronic hemosiderin staining along the periphery of the right parietal, occipital, and temporal lobes with no acute hemorrhage identified in these areas on today's earlier noncontrast head CT. - A small calcified meningioma along the high left falx cerebri is better demonstrated on today's earlier head CT. The meningioma abuts without definitely invading the superior sagittal sinus. Echocardiogram: Left ventricular cavity size normal. Normal left ventricular wall thickness. There is severe hypokinesis of the mid to distal anteroseptum, apex, and mid to distal lateral/inferolateral wall. This pattern could be consistent with Takatsubo's cardiomyopathy. Left ventricular ejection fraction is estimated at 25 %. Normal right ventricular size and function. Unable to estimate the right ventricular systolic pressure. No pericardial effusion. Pertinent Lab Results: Laboratory Tests 10/22 10/22 10/22 1140 0840 0020 Chemistry Sodium (137 - 145 mmol/L) 141 Potassium (3.5 - 5.1 mmol/L) 3.5 Chloride (98 - 107 mmol/L) 104 Carbon Dioxide (22 - 30 mmol/L) 27 Anion Gap (5 - 16) 9 BUN (7 - 17 mg/dL) 19 H Creatinine (0.5 - 1.0 mg/dL) 0.5 Estimated GFR (>60 ml/min) > 60 BUN/Creatinine Ratio (7 - 25 %) 38.0 H Troponin I (< 0.11 ng/ml) 0.49 *H Coagulation APTT (25 - 37 SEC) 79 H 40 H D-Dimer (70 - 232 ng/ml) 795 H Hematology CBC w Diff NO MAN DIFF REQ WBC (4.8 - 10.8 /CUMM) 7.0 RBC (4.20 - 5.40 /CUMM) 4.80 Hgb (12.0 - 16.0 G/DL) 13.6 Hct (37 - 47 %) 41.6 MCV (81.0 - 99.0 FL) 86.5 MCH (27.0 - 31.0 PG) 28.2 RDW (11.5 - 14.5 %) 14.2 Plt Count (130 - 400 /CUMM) 233 MPV (7.4 - 10.4 FL) 8.5 Gran % (42.2 - 75.2 %) 58.6 Lymphocytes % (20.5 - 51.1 %) 25.2 Monocytes % (1.7 - 9.3 %) 13.1 H Eosinophils % (0 - 5 %) 2.4 Basophils % (0.0 - 2.0 %) 0.7 Absolute Granulocytes (1.4 - 6.5 /CUMM) 4.1 Absolute Lymphocytes (1.2 - 3.4 /CUMM) 1.8 Absolute Monocytes (0.10 - 0.60 /CUMM) 0.9 H Absolute Eosinophils (0.0 - 0.7 /CUMM) 0.2 Absolute Basophils (0.0 - 0.2 /CUMM) 0 PUBS MCHC (33.0 - 37.0 G/DL) 32.6 L / 04/ 04/06 0913 0625 0200 Chemistry Sodium (137 - 145 mmol/L) 139 Potassium (3.5 - 5.1 mmol/L) 3.8 Chloride (98 - 107 mmol/L) 103 Carbon Dioxide (22 - 30 mmol/L) 27 Anion Gap (5 - 16) 9 BUN (7 - 17 mg/dL) 21 H Creatinine (0.5 - 1.0 mg/dL) 0.6 Estimated GFR (>60 ml/min) > 60 BUN/Creatinine Ratio (7 - 25 %) 35.0 H Phosphorus (2.5 - 4.5 mg/dL) 3.5 Magnesium (1.6 - 2.3 mg/dL) 2.1 Troponin I (< 0.11 ng/ml) 1.26 *H 1.58 *H Triglycerides (<150 mg/dL) 85 Cholesterol (<200 MG/DL) 232 H LDL Cholesterol, Calc (65 - 129 mg/dL) 139 H HDL Cholesterol (40 - 60 mg/dL) 76 H Cholesterol/HDL Ratio (0.00 - 4.23 %) 3 Coagulation D-Dimer Cancelled Hematology CBC w Diff NO MAN DIFF REQ WBC (4.8 - 10.8 /CUMM) 9.2 RBC (4.20 - 5.40 /CUMM) 4.99 Hgb (12.0 - 16.0 G/DL) 14.2 Hct (37 - 47 %) 42.6 MCV (81.0 - 99.0 FL) 85.3 MCH (27.0 - 31.0 PG) 28.5 RDW (11.5 - 14.5 %) 14.2 Plt Count (130 - 400 /CUMM) 287 MPV (7.4 - 10.4 FL) 8.2 Gran % (42.2 - 75.2 %) 67.8 Lymphocytes % (20.5 - 51.1 %) 17.4 L Monocytes % (1.7 - 9.3 %) 13.8 H Eosinophils % (0 - 5 %) 0.6 Basophils % (0.0 - 2.0 %) 0.4 Absolute Granulocytes (1.4 - 6.5 /CUMM) 6.2 Absolute Lymphocytes (1.2 - 3.4 /CUMM) 1.6 Absolute Monocytes (0.10 - 0.60 /CUMM) 1.3 H Absolute Eosinophils (0.0 - 0.7 /CUMM) 0.1 Absolute Basophils (0.0 - 0.2 /CUMM) 0 PUBS MCHC (33.0 - 37.0 G/DL) 33.3 04/05 2100 Chemistry Troponin I (< 0.11 ng/ml) 1.35 *H Disposition Summary Disposition Principal Diagnosis: Non-ST elevated myocardial infarction Transient ischemic attack Additional Diagnosis: Dementia Discharge Disposition: SNF Discharge Instructions General Discharge Information Code Status: Do Not Resucitate/Intubat Patient's Diet: Pured diet with regular thin liquids Patient's Activity: As tolerated Follow-Up Instructions/Appts: Please call and make a follow-up with your primary care physician within one week after discharge Please call and make a follow-up with your magnetic tape composer operator Dr. Grover within 1 week after discharge Medications at Discharge Discharge Medications: Continue taking these medications: Diltiazem HCl (Diltiazem 24HR Cd) 180 MG CAP.ER.24H 1 Capsule ORAL DAILY Comments: NOT GIVEN IN HOSPITAL CARDIZEM 60MG PO GIVEN 10/24 @ 2 PM Magnesium Oxide (Magnesium Oxide) 400 MG TABLET 1 Tablet ORAL TAKE AT BEDTIME Comments: Last Taken: 10/23/16 Time: 1000 PM Thyroid ([place] Thyroid) 15 MG TABLET 1 Tablet ORAL DAILY Comments: Last Taken: 10/23/16 Time: 6 AM Sennosides/Docusate Sodium (Senna S Tablet) 1 EACH TABLET 2 Tablet ORAL TAKE AT BEDTIME Comments: Last Taken: 10/19/16 Time: 1000 AM Tramadol HCl (Tramadol HCl) 50 MG TABLET 1 Tablet ORAL EVERY 4 HOURS NEEDED as needed for PAIN Comments: NOT GIVEN IN HOSPITAL Polyethylene Glycol 3350 (Miralax) 17 GM POWD.PACK 1 Packet ORAL DAILY as needed for GI Instructions: dissolve in water Comments: Last Taken: 10/19/16 Time: 1000 AM Fluticasone Propionate (Flovent Hfa) 110 MCG/ACTUATION AER.W.ADAP 1 Puff Inhale through mouth GIVE ONCE Qty = 30 Comments: Last Taken: 10/20/16 Time: 930 PM Tiotropium [place] (Spiriva) 18 MCG CAP.W.DEV 1 Capsule Inhale through mouth DAILY Qty = 30 Comments: Last Taken: 10/24/16 Time: 1000 AM Quetiapine Fumarate (Seroquel) 25 MG TABLET 1 Tablet ORAL Every Morning Comments: Last Taken: 10/24/16 Time: 1000 AM Quetiapine Fumarate (Seroquel) 50 MG TABLET 1 Tablet ORAL Every night Comments: Last Taken: 10/23/16 Time: 1000 PM Aspirin (Ecotrin*) 325 MG TABLET.DR 1 Tablet ORAL DAILY Comments: Last Taken: 10/24/16 Time: 1000 AM Start taking the following new medications: Atorvastatin Calcium (Atorvastatin Calcium) 40 MG TABLET 40 Milligram ORAL 5 PM Qty = 60 No Refills Copies To: [place] BHAGAT,ERWIN [place]; GIANA BHAGAT,TOYIN
[2016-10-21] MEDS ORDERED: ASPIRIN EC325 M2 PO (15:41)
[2016-10-21] MEDS ORDERED: ATORVASTATIN CA40 M1 PO (15:46)
[2016-10-21 16:30] VITALS: BP 102/50
[2016-10-22 00:45] LABS: PTT 40 SEC (25-37)
--- NOTE | 2016-10-22 07:18 | PN- Housestaff ---
SOURAV BHAGAT,DANIEL 10/22/16 0718: Subjective Follow-up For: NSTEMI vs Demand ischaemia vs Tako tsubo Left jaw deviation Tele-Events Since Last Visit: sinus rhythm 77-83 with PAC's through out the night Subjective: I saw and examined the patient today morning she is very much at her baseline, still disoriented. Doing fairly well, denies any pain. No overnight events. Review of Systems Constitutional: Reports: see HPI. Comments: ROS cannot be appreciated as per the patients condition Objective Last 24 Hrs of Vital Signs/I&O Vital Signs Date Time Temp Pulse Resp B/P Pulse O2 O2 Flow FiO2 Ox Delivery Rate 10/22 0640 84 132/64 10/21 2147 84 118/60 10/21 1630 97.4 96 20 102/50 95 Room Air 10/21 1624 102 102/50 10/21 1600 95 Room Air 10/21 1516 Room Air 10/21 1511 Room Air 10/21 0801 98.1 95 20 110/70 97 Room Air Intake & Output 10/22 0800 10/22 0000 10/21 1600 Intake Total 178 120 800 Output Total 325 400 Balance -147 120 400 Intake, IV 128 400 Intake, Oral 50 120 400 Number 1 Bowel Movements Output, Urine 325 400 Physical Exam General Appearance: Alert, Cooperative, No Acute Distress, Not oriented Skin: No Rashes, No Breakdown HEENT: Atraumatic, PERRLA, EOMI, left jaw deviated Neck: Supple, No JVD Cardiovascular: Normal S1, Normal S2, diastolic murmur?? Lungs: Clear to Auscultation, Normal Air Movement Abdomen: Normal Bowel Sounds, Soft, No Tenderness Neurological: Strength at 5/5 X4 Ext, Normal Tone, Sensation Intact Extremities: No Clubbing, No Cyanosis, No Edema Current Medications: Current Medications Sig/Ulices Start time Last Medication Dose Route Stop Time Status Admin Aspirin 325 MG DAILY 10/21 1915 AC 10/21 PO 2145 Aspirin Buffered 325 MG DAILY 10/21 1541 DC PO Atorvastatin Calcium 40 MG 1700 10/21 1700 AC 10/21 PO 214 Atorvastatin Calcium 20 MG 1700 10/21 1700 CAN PO Dextrose/Sodium 1,000 ML ONCE ONE 10/20 2200 DC 10/20 Chloride IV 10/21 1759 2251 Diltiazem HCl 60 MG .STK-MED ONE 10/21 1620 DC PO 10/21 1621 Diltiazem HCl 60 MG Q8 10/21 1506 AC 10/22 PO 0640 Diltiazem HCl 180 MG DAILY 10/21 1000 DC PO Heparin Sodium 3,000 UNIT ONCE ONE 10/22 0200 DC 10/22 (Porcine) IV 10/22 0201 0630 Heparin Sodium 25,000 UNIT Q24H 10/21 1700 AC 10/21 (Porcine) IV 1810 Sodium Chloride 500 ML Magnesium Oxide 400 MG AT BEDTIME 10/20 2200 AC 10/21 PO 2146 Patient Medication 1 ED ONE ONE 10/21 1415 CAN Teaching ED 10/21 1416 Polyethylene Glycol 17 GM DAILY PRN 10/20 1800 AC PO Quetiapine Fumarate 25 MG QAM 10/21 1000 AC PO Quetiapine Fumarate 50 MG QPM 10/20 2200 AC 10/21 PO 2146 Senna/Docusate Sodium 2 TAB AT BEDTIME 10/20 2200 AC 10/21 PO 2146 Thyroid 15 MG DAILY AC 10/21 0700 AC 10/22 PO 0640 Tiotropium [place] 1 PUF DAILY 10/21 1000 AC 10/21 INH 1027 Tramadol HCl 50 MG Q4 HRS NEEDED PRN 10/20 1800 AC PO Last 24 Hrs of Lab/Edward Results Last 24 Hrs of Labs/Mics: Laboratory Tests 10/22/16 0020: APTT 40 H, D-Dimer 795 H 10/21/16 0913: D-Dimer Cancelled Lines/Diet/Fluids Lines: peripheral lines Assessment/Plan Assessment: Patient is a 85-year-old female with extensive PMH notable include Lyme disease, Stroke (2016), Meningioma, Atrial Fibrillaion (not on anticoagulation) came to the ER [facility] IR department post procedurally after undergoing vertebroplasty. She had left facial droop and very delirious. She received IV propofol and ketamine during the procedure. ER Course VS Tmax of 98.3, Pulse 102, RR 18, BP 130/60mmHg, on room air Significnat labs Troponins elevated - today came down to 0,.49 EKG shows Sinus rhythm with new onset LBBB Imaging CT head No acute intracranial pathology compared to 08/19/2016. She received Aspirin 300mg SD in ER Plan NSTEMI Probably Secondary to transient hypoperfusion of coronary arteries secondary to hypotension (anesthetic meds). Last ECHO 08/2016 shows LVEF > 65%, MVP. A single dose of Perrectal aspirin 300mg given in ER. * EKG shows Sinus rhythm with new onset LBBB initially which later flipped. * Troponins trended down 0.23 --> 1.35 --> 1.58 -->1.26 * As her trops are coming down, we stopped her IV heparin today. * Started on Atorvastatin. * ECHO shows Severe hypokinesis of mid to distal anteroseptum, apex, mid to distal lateral/inferolateral wall. LVEF 25%. * Stable for discharge tomorrow. Spoke with the family about the condition, prognosis, available options and patient wishes in detail. Agreed for a conservative approach. Suspected PE * S/P surgery, flipped T waves on EKG, elevated trops, Immobilization (1.5points ), Tachycardia (1.5 points), on room air. * wells score - 3, PERC does not rule out PE * CTA chest done - negative for PE Suspected TIA * Passed swallow evaluation - started on diet * No facial droop today, so probably secondary to nerve pressing on the left jaw due to abnormal positioning. * CT and MRI negative for any acute intracranial pathology. Left jaw deviation Status Post Verterbroplasty * Possibly secondary to prone positioning on the table for long time during surgery. * Post operative pain need to be controlled * Jaw X ray if worsens. History of SVT * On diltiazem CD 180mg at home, started on cardizem 60mg Q8 as she is on pureed diet (need to be crushed). History of COPD * TRC/Nebs Hypothyroidism * On thyroid 15mg at home, we will continue that. * TSH and free T4 are normal. Mental health * On seroquel 25mg AM and 50mg PM - we will continue. DVT Prophylaxis * ALPS CODE STATUS * DNR/DNI Problem List: 1. Mitral valve prolapse 2. Supraventricular tachycardia 3. NSTEMI (non-ST elevated myocardial infarction) 4. Elevated troponin 5. S/P vertebroplasty Pain Ratin Pain Location: n/a Pain Goal: Pain 4 or less Pain Plan: tylenol prn Tomorrow's Labs & Rationales: none AIDA FISH MD 10/22/16 0948: Attending MD Review Statement Attending Statement Attending MD Statement: examined this patient, discuss w/resident/PA/SUCCESS COACH, agreed w/resident/PA/SUCCESS COACH, reviewed EMR data (avail) Attending Assessment/Plan: 85F PMH dementia, paroxysmal atrial fibrillation not on anti-coagulation, history of SVT, lumbar vertebral compression fracture s/p vertebroplasty on 10/20, admitted after procedure, found to have confusion and left facial droop. Concern was for acute CVA initially. Today patient is at her baseline mental status, cooperative, alert, still confused (though this is the same as her mental status during her previous admission). She does not have a facial droop at this time and cranial nerve and neuro exam is grossly normal. She reports her back pain is improved. EKG from 10/20 showed flattened anterior T-waves and increased troponin to peak of 1.58 in the setting of NSTEMI. She denies chest pain. Plan - Continue on telemetry - Follow cardiology recommendations - Favor conservative approach to NSTEMI, physician internist has discussed this with family who agree with plan - Restart ASA - May start statin - WIll continue Cardizem for history of SVT - CTA negative for PE - Neurology consult - Continue home medications - DVT PPx - Pending cardiac workup can be discharged to [facility] when medically stable
[2016-10-22 08:29] VITALS: BP 124/64
[2016-10-22 10:00] LABS: ABSOLUTE BASOPHIL COUNT 0 /CUMM (0.0-0.2); ABSOLUTE EOSINOPHIL COUNT 0.2 /CUMM (0.0-0.7); ABSOLUTE GRANULOCYTE CT 4.1 /CUMM (1.4-6.5); ABSOLUTE LYMPH COUNT 1.8 /CUMM (1.2-3.4); ABSOLUTE MONOCYTE COUNT 0.9 /CUMM (0.10-0.60); BASOPHIL % 0.7 % (0.0-2.0); EOSINOPHIL % 2.4 % (0-5); GRANULOCYTE % 58.6 % (42.2-75.2); HEMATOCRIT 41.6 % (37-47); MEAN CORPUSCULAR HGB 28.2 PG (27.0-31.0); MEAN CORPUSCULAR HGB CONC 32.6 G/DL (33.0-37.0); MEAN CORPUSCULAR VOLUME 86.5 FL (81.0-99.0); MEAN PLATELET VOLUME 8.5 FL (7.4-10.4); PLATELET COUNT 233 /CUMM (130-400); RBC DISTRIBUTION WIDTH 14.2 % (11.5-14.5)
[2016-10-22 12:21] LABS: PTT 79 SEC (25-37)
--- NOTE | 2016-10-22 13:03 | PN- Cardiology ---
Subjective Subjective: Patient's sitting in bed and resting comfortably. Denies any symptoms. Remains a very limited historian, A+Ox1. Objective Vital Signs and I&Os Vital Signs Date Time Temp Pulse Resp B/P Pulse O2 O2 Flow FiO2 Ox Delivery Rate 10/22 0829 98.4 85 18 124/64 96 Room Air / 0640 84 132/64 / 2147 84 118/60 / 1630 97.4 96 20 102/50 95 Room Air 10/21 1624 102 102/50 10/21 1600 95 Room Air 10/21 1516 Room Air 10/21 1511 Room Air Intake & Output 10/22 1600 10/22 0800 10/22 0000 10/21 1600 10/21 0800 10/21 0000 Intake Total 178 120 800 400 Output Total 325 400 500 Balance -147 120 400 -100 Intake, IV 128 400 400 Intake, Oral 50 120 400 0 Number 1 Bowel Movements Output, Urine 325 400 500 Patient 110 lb Weight Physical Exam: General: no apparent distress. A+Ox1. Eyes: No obvious scleral icterus. HEENT: No jugular venous distention or abnormal jugular venous pulsations. Cardiovascular: Normal intensity S1/S2. PMI not grossly displaced. Respiratory: Lungs clear to auscultation bilaterally. Abdomen: Soft, nontender with no guarding or rebound tenderness. Musculoskeletal: No clubbing or cyanosis noted, no edema Skin: Warm Neurologic: No gross focal deficits noted. Current Medications: Current Medications Sig/Ulices Start time Last Medication Dose Route Stop Time Status Admin Aspirin 325 MG DAILY 10/21 1915 AC 10/22 PO 1056 Aspirin Buffered 325 MG DAILY 10/21 1541 DC PO Atorvastatin Calcium 40 MG 1700 10/21 1700 AC / PO 2146 Atorvastatin Calcium 20 MG 1700 10/21 1700 CAN PO Dextrose/Sodium 1,000 ML ONCE ONE 10/20 2200 DC 04/ Chloride IV 10/21 1759 2251 Diltiazem HCl 60 MG .STK-MED ONE 10/21 1620 DC PO / 1621 Diltiazem HCl 60 MG Q8 10/21 1506 AC 10/22 PO 0640 Diltiazem HCl 180 MG DAILY 10/21 1000 DC PO Heparin Sodium 3,000 UNIT ONCE ONE 10/22 0200 DC 10/22 (Porcine) IV 10/22 0201 0630 Heparin Sodium 25,000 UNIT Q24H 10/21 1700 AC 10/21 (Porcine) IV 1810 Sodium Chloride 500 ML Magnesium Oxide 400 MG AT BEDTIME 10/20 2200 AC 10/21 PO 2146 Patient Medication 1 ED ONE ONE 10/21 1415 CAN Teaching ED 10/21 1416 Polyethylene Glycol 17 GM DAILY PRN 10/20 1800 AC PO Potassium Chloride 40 MEQ ONCE ONE 10/22 1015 DC 10/22 PO 10/22 1016 1056 Quetiapine Fumarate 25 MG QAM 10/21 1000 AC 10/22 PO 1056 Quetiapine Fumarate 50 MG QPM 10/20 2200 AC 10/21 PO 2146 Senna/Docusate Sodium 2 TAB AT BEDTIME 10/20 2200 AC 10/21 PO 2146 Thyroid 15 MG DAILY AC 10/21 0700 AC 10/22 PO 0640 Tiotropium [place] 1 PUF DAILY 10/21 1000 AC 10/22 INH 1056 Tramadol HCl 50 MG Q4 HRS NEEDED PRN 10/20 1800 AC PO Results Last 48 Hrs of Labs/Mics: Laboratory Tests 10/22/16 1140: APTT 79 H 10/22/16 0840: Anion Gap 9, Estimated GFR > 60, BUN/Creatinine Ratio 38.0 H, Troponin I 0.49 * H, CBC w Diff NO MAN DIFF REQ, RBC 4.80, MCV 86.5, MCH 28.2, RDW 14.2, MPV 8.5, Gran % 58.6, Lymphocytes % 25.2, Monocytes % 13.1 H, Eosinophils % 2.4, Basophils % 0.7, Absolute Granulocytes 4.1, Absolute Lymphocytes 1.8, Absolute Monocytes 0.9 H, Absolute Eosinophils 0.2, Absolute Basophils 0, PUBS MCHC 32.6 L 10/22/16 0020: APTT 40 H, D-Dimer 795 H 10/21/16 0913: D-Dimer Cancelled 10/21/16 0625: Anion Gap 9, Estimated GFR > 60, BUN/Creatinine Ratio 35.0 H, Phosphorus 3.5, Magnesium 2.1, Troponin I 1.26 *H, Triglycerides 85, Cholesterol 232 H, LDL Cholesterol, Calc 139 H, HDL Cholesterol 76 H, Cholesterol/HDL Ratio 3, CBC w Diff NO MAN DIFF REQ, RBC 4.99, MCV 85.3, MCH 28.5, RDW 14.2, MPV 8.2, Gran % 67.8, Lymphocytes % 17.4 L, Monocytes % 13.8 H, Eosinophils % 0.6, Basophils % 0.4, Absolute Granulocytes 6.2, Absolute Lymphocytes 1.6, Absolute Monocytes 1.3 H, Absolute Eosinophils 0.1, Absolute Basophils 0, PUBS MCHC 33.3 10/21/16 0200: Troponin I 1.58 *H 10/20/16 2100: Troponin I 1.35 *H 10/20/16 1405: Anion Gap 10, Estimated GFR > 60, BUN/Creatinine Ratio 38.3 H, Glucose 117 H, Calcium 9.9, Phosphorus 3.2, Magnesium 2.1, Total Bilirubin 0.6, AST 26, ALT 35, Alkaline Phosphatase 148 H, Troponin I 0.23 *H, Total Protein 7.2, Albumin 3.9, Globulin 3.3, Albumin/Globulin Ratio 1.2, PT 11.5, INR 1.10, CBC w Diff NO MAN DIFF REQ, RBC 5.07, MCV 84.8, MCH 28.1, RDW 13.7, MPV 7.8, Gran % 77.3 H, Lymphocytes % 13.7 L, Monocytes % 7.7, Eosinophils % 0.9, Basophils % 0.4, Absolute Granulocytes 6.3, Absolute Lymphocytes 1.1 L, Absolute Monocytes 0.6, Absolute Eosinophils 0.1, Absolute Basophils 0, PUBS MCHC 33.1 Recent Imaging Studies: Telemetry tracings were personally reviewed and shows sinus rhythm MRI - No acute intracranial findings. There are no acute infarcts. Motion degraded study. - Mild chronic microangiopathy and a chronic infarct within the left marrero radiata. Global cerebral volume loss. - There is favored chronic hemosiderin staining along the periphery of the right parietal, occipital, and temporal lobes with no acute hemorrhage identified in these areas on today's earlier noncontrast head CT. - A small calcified meningioma along the high left falx cerebri is better demonstrated on today's earlier head CT. The meningioma abuts without definitely invading the superior sagittal sinus. CTA IMPRESSION: No filling defect to suggest a pulmonary embolism here. Some scattered areas of groundglass change which are new in the right upper lung anterior midlung zone most consistent with small areas of acute infiltrate. Some mild dependent atelectasis bilaterally. Assessment/Plan Assessment/Plan 1. Possible TIA following vertebroplasty with reported history of prior stroke? 2. Elevated troponin of unclear etiology, possibly non-ST elevation myocardial infarction versus demand ischemia versus a Takatsubo's event versus hypoperfusion from recent anesthesia; difficult to determine as the patient is a very limited historian 3. History of paroxysmal SVT maintained on outpatient Cardizem 4. Dementia 5. Abnormal ECG with intraventricular conduction delay 6. Meningioma 7. History of hypertension The patient remains a very limited historian but appears comfortable. She is hemodynamically stable with no significant arrhythmias on telemetry. No evidence of atrial fibrillation. Conservative approach is planned. As the patient currently offers no complaints and troponin trending down can discontinue intravenous heparin as no evidence of pulmonary embolism or acute CVA. Etiology of the elevated troponin remains unclear as described above. Continue her on aspirin and statin therapy. Echocardiogram is pending. As there seems to be no actual confirmation the patient is ever had atrial fibrillation long-term oral anticoagulation is not currently recommended. Jacinto De La Vega MD [facility] Continue telemetry? Yes
[2016-10-22 16:33] VITALS: BP 102/58
--- NOTE | 2016-10-22 17:05 | ECHOCARDIOGRAM REPORT ---
HENNA GONZALEZ Age: 85 : 1930 Gender: F Exam Date: 10/22/2016 14:04 Exam Location: 1 [address] Ht (in): 60 Wt (lb): 109 BSA: 1.45 BP: 102 / 60 Ordering Physician: DANIEL BENJAMIN MD Referring Physician: DANIEL BENJAMIN MD Technologist: Room Number: 185-01 Indications: TIA Rhythm: Technical Quality: Technically difficult study FINDINGS Left Ventricle Left ventricular cavity size normal. Normal left ventricular wall thickness. There is severe hypokinesis of the mid to distal anteroseptum, apex, and mid to distal lateral/inferolateral wall. This pattern could be consistent with Takatsubo's cardiomyopathy. Left ventricular ejection fraction is estimated at 25 %. Right Ventricle Normal right ventricular size and function. Right Atrium Normal right atrial size. Left Atrium Normal left atrial size. Mitral Valve Mild mitral annular calcification. No mitral stenosis. Mild mitral regurgitation. Aortic Valve Trileaflet aortic valve. No aortic stenosis. Mild aortic regurgitation. Tricuspid Valve Structurally normal tricuspid valve. Mild tricuspid regurgitation. Unable to estimate the right ventricular systolic pressure. Pulmonic Valve Pulmonic valve not well visualized. Pericardium No pericardial effusion. Great Vessels Aortic root and proximal ascending aorta not well visualized. CONCLUSIONS Technically difficult study. Left ventricular cavity size normal. Normal left ventricular wall thickness. There is severe hypokinesis of the mid to distal anteroseptum, apex, and mid to distal lateral/inferolateral wall. This pattern could be consistent with Takatsubo's cardiomyopathy. Left ventricular ejection fraction is estimated at 25 %. Normal right ventricular size and function. Unable to estimate the right ventricular systolic pressure. No pericardial effusion. Benja De La Vega M.D. (Electronically Signed) Final Date: 22 October 2016 17:04 MEASUREMENTS (Male / Female) Normal Values 2D ECHO LV Diastolic Diameter PLAX 2.9 cm 4.2 - 5.9 / 3.9 - 5.3 cm LV Systolic Diameter PLAX 2.7 cm 2.1 - 4.0 cm LV Fractional Shortening PLAX 6.9 % 25 - 46 % LV Ejection Fraction 2D Teich 16.1 % IVS Diastolic Thickness 0.9 cm LVPW Diastolic Thickness 0.7 cm LV Relative Wall Thickness 0.6 RV Internal Dim ED PLAX 2.5 cm 1.9 - 3.8 cm LVOT Diameter 2.0 cm Aortic Root Diameter 3.5 cm LA Systolic Diameter LX 2.9 cm 3.0 - 4.0 / 2.7 - 3.8 cm LA Volume 30.0 cm 18 - 58 / 22 - 52 cm Ascending Aorta Diameter 2.9 cm DOPPLER AV Peak Velocity 91.7 cm/s AV Peak Gradient 3.4 mmHg AV Mean Velocity 59.0 cm/s AV Mean Gradient 2.0 mmHg AV Velocity Time Integral 12.4 cm AI Deceleration [place] 409.0 cm/s AI Peak Velocity 303.0 cm/s AI Pressure Half Time 217.0 ms AI Peak Gradient 36.7 mmHg LVOT Peak Velocity 75.9 cm/s LVOT Peak Gradient 2.3 mmHg LVOT Mean Velocity 50.8 cm/s LVOT Mean Gradient 1.0 mmHg LVOT Velocity Time Integral 9.1 cm LVOT Stroke Volume 28.6 cm AV Area Cont Eq vti 2.3 cm AV Area Cont Eq pk 2.6 cm MV Peak Velocity 146.0 cm/s MV Peak Gradient 8.5 mmHg MV Mean Velocity 52.5 cm/s MV Mean Gradient 2.0 mmHg Mitral E Point Velocity 28.1 cm/s Mitral A Point Velocity 133.0 cm/s Mitral E to A Ratio 0.2 MV PHT Velocity 47.5 cm/s MV Deceleration [place] 178.0 cm/s MV Pressure Half Time 80.1 ms MV Area PHT 2.7 cm MV Deceleration Time 187.0 ms TR Peak Velocity 259.0 cm/s TR Peak Gradient 26.8 mmHg
[2016-10-22 23:11] VITALS: BP 114/58
--- NOTE | 2016-10-23 07:28 | PN- Housestaff ---
SOURAV BHAGAT,DANIEL 10/23/16 0727: Subjective Follow-up For: Tako tsubo cardiomyopathy Left jaw deviation Tele-Events Since Last Visit: Sinus rhythm Subjective: At baseline, no complaints. Doing well. Review of Systems Constitutional: Reports: see HPI. Comments: ROS cannot be appreciated as per the patients condition Objective Last 24 Hrs of Vital Signs/I&O Vital Signs Date Time Temp Pulse Resp B/P Pulse O2 O2 Flow FiO2 Ox Delivery Rate 10/23 06 99 120/60 10/22 2311 97.4 98 20 114/58 96 Room Air 10/22 2131 102 114/70 10/22 1633 98.0 95 18 102/58 97 Room Air 10/22 1400 111 102/60 10/22 0829 98.4 85 18 124/64 96 Room Air Intake & Output 10/23 0810/23 0000 10/22 1600 Intake Total 300 250 364 Output Total 500 350 350 Balance -200 -100 14 Intake, IV 64 Intake, Oral 300 250 300 Number 1 1 Bowel Movements Output, Urine 500 350 350 Patient 49.442 kg Weight Physical Exam General Appearance: Alert Skin: No Rashes, No Breakdown HEENT: Atraumatic, PERRLA, EOMI Neck: Supple, left jaw deviation Cardiovascular: Normal S1, Normal S2 Lungs: Clear to Auscultation, Normal Air Movement Abdomen: Normal Bowel Sounds, Soft, No Tenderness Neurological: Normal Speech, Strength at 5/5 X4 Ext, Sensation Intact Extremities: No Clubbing, No Cyanosis, No Edema Vascular: Normal Pulses, Pulses Symmetrical Current Medications: Current Medications Sig/Ulices Start time Last Medication Dose Route Stop Time Status Admin Aspirin 325 MG DAILY 10/21 1915 AC 10/23 PO 1134 Atorvastatin Calcium 40 MG 1700 10/21 1700 AC 10/23 PO 1831 Diltiazem HCl 60 MG Q8 10/21 1506 AC 10/23 PO 1831 Magnesium Oxide 400 MG AT BEDTIME 10/20 2199 AC 10/22 PO 2129 Polyethylene Glycol 17 GM DAILY PRN 10/20 1800 AC PO Quetiapine Fumarate 25 MG QAM 10/21 1000 AC 10/23 PO 1134 Quetiapine Fumarate 50 MG QPM 10/20 2200 AC 10/22 PO 2130 Senna/Docusate Sodium 2 TAB AT BEDTIME 10/20 2199 AC 10/22 PO 2129 Thyroid 15 MG DAILY AC 10/21 0700 AC 10/23 PO 0604 Tiotropium [place] 1 PUF DAILY 10/21 1000 AC 10/23 INH 1134 Tramadol HCl 50 MG Q4 HRS NEEDED PRN 10/20 1800 AC PO Last 24 Hrs of Lab/Edward Results Last 24 Hrs of Labs/Mics: Laboratory Tests 10/23/16 0630: Anion Gap 7, Estimated GFR > 60, BUN/Creatinine Ratio 30.0 H, CBC w Diff NO MAN DIFF REQ, RBC 4.54, MCV 85.4, MCH 28.4, RDW 14.2, MPV 8.6, Gran % 77.3 H, Lymphocytes % 9.8 L, Monocytes % 11.4 H, Eosinophils % 1.4, Basophils % 0.1, Absolute Granulocytes 5.5, Absolute Lymphocytes 0.7 L, Absolute Monocytes 0.8 H, Absolute Eosinophils 0.1, Absolute Basophils 0, PUBS MCHC 33.3 Lines/Diet/Fluids Lines: peripheral lines Assessment/Plan Assessment: Patient is a 85-year-old female with extensive PMH notable include Lyme disease, Stroke (2016), Meningioma, Atrial Fibrillaion (not on anticoagulation) came to the ER [facility] IR department post procedurally after undergoing vertebroplasty. She had left facial droop and very delirious. She received IV propofol and ketamine during the procedure. ER Course VS Tmax of 98.3, Pulse 102, RR 18, BP 130/60mmHg, on room air Significnat labs Troponins elevated - today came down to 0,.49 EKG shows Sinus rhythm with new onset LBBB Imaging CT head No acute intracranial pathology compared to 08/19/2016. She received Aspirin 300mg NC in ER Plan NSTEMI Probably Secondary to transient hypoperfusion of coronary arteries secondary to hypotension (anesthetic meds). Last ECHO 08/2016 shows LVEF > 65%, MVP. A single dose of Perrectal aspirin 300mg given in ER. * EKG shows Sinus rhythm with new onset LBBB initially which later flipped. * Troponins trended down 0.23 --> 1.35 --> 1.58 -->1.26 * As her trops are coming down, we stopped her IV heparin today. * Started on Atorvastatin. * ECHO shows Severe hypokinesis of mid to distal anteroseptum, apex, mid to distal lateral/inferolateral wall. LVEF 25%. * Takotsubocardiomyopathy. Spoke with the family about the condition, prognosis, available options and patient wishes in detail. Agreed for a conservative approach. Suspected PE * S/P surgery, flipped T waves on EKG, elevated trops, Immobilization (1.5points ), Tachycardia (1.5 points), on room air. * wells score - 3, PERC does not rule out PE * CTA chest done - negative for PE Suspected TIA * Passed swallow evaluation - started on diet * No facial droop today, so probably secondary to nerve pressing on the left jaw due to abnormal positioning. * CT and MRI negative for any acute intracranial pathology. Left jaw deviation Status Post Verterbroplasty * Possibly secondary to prone positioning on the table for long time during surgery. * Post operative pain need to be controlled * Jaw X ray if worsens. History of SVT * On diltiazem CD 180mg at home, started on cardizem 60mg Q8 as she is on pureed diet (need to be crushed). History of COPD * TRC/Nebs Hypothyroidism * On thyroid 15mg at home, we will continue that. * TSH and free T4 are normal. Mental health * On seroquel 25mg AM and 50mg PM - we will continue. DVT Prophylaxis * ALPS CODE STATUS * DNR/DNI Problem List: 1. Mitral valve prolapse 2. Confusion 3. NSTEMI (non-ST elevated myocardial infarction) 4. S/P vertebroplasty 5. Fracture of T12 vertebra 6. Intractable pain 7. Elevated troponin 8. Takotsubo cardiomyopathy Pain Ratin Pain Location: n/a Pain Goal: Pain 4 or less Pain Plan: tylenol prn Tomorrow's Labs & Rationales: bep mg AIDA FISH MD 10/23/16 1146: Attending MD Review Statement Attending Statement Attending MD Statement: examined this patient, discuss w/resident/PA/RESEARCH SCIENTIST, agreed w/resident/PA/RESEARCH SCIENTIST, reviewed EMR data (avail) Attending Assessment/Plan: 85F PMH dementia, paroxysmal atrial fibrillation not on anti-coagulation, history of SVT, lumbar vertebral compression fracture s/p vertebroplasty on 10/20, admitted after procedure, found to have confusion and left facial droop. Concern was for acute CVA initially. Today patient is at her baseline mental status, cooperative, alert, still confused (though this is the same as her mental status during her previous admission). She does not have a facial droop at this time and cranial nerve and neuro exam is grossly normal. She reports her back pain is improved. EKG from 10/20 showed flattened anterior T-waves and increased troponin to peak of 1.58 in the setting of NSTEMI. She denies chest pain. Echocardiogram showed evidence of Takotsubo cardiomyopathy with EF 25%. Plan - Continue on telemetry - Follow cardiology recommendations - Favor conservative approach to NSTEMI, epidemiology internship has discussed this with family who agree with plan - Restart ASA - May start statin - WIll continue Cardizem for history of SVT - CTA negative for PE - Neurology consult - Continue home medications - DVT PPx - Pending cardiac workup can be discharged to [facility] when medically stable
[2016-10-23 07:43] VITALS: BP 120/80
[2016-10-23 07:54] LABS: ABSOLUTE BASOPHIL COUNT 0 /CUMM (0.0-0.2); ABSOLUTE EOSINOPHIL COUNT 0.1 /CUMM (0.0-0.7); ABSOLUTE GRANULOCYTE CT 5.5 /CUMM (1.4-6.5); ABSOLUTE LYMPH COUNT 0.7 /CUMM (1.2-3.4); ABSOLUTE MONOCYTE COUNT 0.8 /CUMM (0.10-0.60); BASOPHIL % 0.1 % (0.0-2.0); EOSINOPHIL % 1.4 % (0-5); GRANULOCYTE % 77.3 % (42.2-75.2); HEMATOCRIT 38.8 % (37-47); MEAN CORPUSCULAR HGB 28.4 PG (27.0-31.0); MEAN CORPUSCULAR HGB CONC 33.3 G/DL (33.0-37.0); MEAN CORPUSCULAR VOLUME 85.4 FL (81.0-99.0); MEAN PLATELET VOLUME 8.6 FL (7.4-10.4); PLATELET COUNT 216 /CUMM (130-400); RBC DISTRIBUTION WIDTH 14.2 % (11.5-14.5); RED BLOOD CELL CT 4.54 /CUMM (4.20-5.40); WHITE BLOOD CELL COUNT 7.1 /CUMM (4.8-10.8)
[2016-10-23 16:00] VITALS: BP 116/62
--- NOTE | 2016-10-23 21:25 | PN- Cardiology ---
Subjective Subjective: No complaints. Denies any chest discomfort, palpitations, shortness of breath, lower extremity edema, etc. On telemetry she is in sinus rhythm with occasional ventricular ectopy and acceptable heart rates. Objective Vital Signs and I&Os Vital Signs Date Time Temp Pulse Resp B/P Pulse O2 O2 Flow FiO2 Ox Delivery Rate 10/23 1831 90 116/62 10/23 1600 99.2 90 20 116/62 95 Room Air 10/23 0743 97.9 93 120/80 94 10/23 0600 99 120/60 10/22 2311 97.4 98 20 114/58 96 Room Air 10/22 2131 102 114/70 Intake & Output 10/23 1600 10/23 0810/23 0000 10/22 1600 10/22 0000 Intake Total 525 300 250 364 178 120 Output Total 400 500 350 350 325 Balance 125 -200 -100 14 -147 120 Intake, IV 64 128 Intake, Oral 525 300 250 300 50 120 Number 1 1 1 1 Bowel Movements Output, Urine 400 500 350 350 325 Patient 109 lb Weight Physical Exam: Well-developed, well-nourished elderly female in no acute distress. Vital signs: See above. Lungs: Clear to auscultation bilaterally. Heart: S1, S2 with soft systolic murmur. Extremities: No edema. Current Medications: Current Medications Sig/Ulices Start time Last Medication Dose Route Stop Time Status Admin Aspirin 325 MG DAILY 10/21 1915 AC 10/23 PO 1134 Atorvastatin Calcium 40 MG 1700 / 1700 AC 10/23 PO 1831 Diltiazem HCl 60 MG Q8 10/21 1506 AC 10/23 PO 1831 Magnesium Oxide 400 MG AT BEDTIME 10/20 2199 AC 10/22 PO 2129 Polyethylene Glycol 17 GM DAILY PRN 10/20 1800 AC PO Quetiapine Fumarate 25 MG QAM 10/21 1000 AC 10/23 PO 1134 Quetiapine Fumarate 50 MG QPM 10/20 2200 AC 10/22 PO 2130 Senna/Docusate Sodium 2 TAB AT BEDTIME 10/20 2200 AC 10/22 PO 2129 Thyroid 15 MG DAILY AC 10/21 0700 AC 10/23 PO 0604 Tiotropium [place] 1 PUF DAILY 10/21 1000 AC 10/23 INH 1134 Tramadol HCl 50 MG Q4 HRS NEEDED PRN 04/05 1800 AC PO Results Last 48 Hrs of Labs/Mics: Laboratory Tests 10/23/16 0630: Anion Gap 7, Estimated GFR > 60, BUN/Creatinine Ratio 30.0 H, CBC w Diff NO MAN DIFF REQ, RBC 4.54, MCV 85.4, MCH 28.4, RDW 14.2, MPV 8.6, Gran % 77.3 H, Lymphocytes % 9.8 L, Monocytes % 11.4 H, Eosinophils % 1.4, Basophils % 0.1, Absolute Granulocytes 5.5, Absolute Lymphocytes 0.7 L, Absolute Monocytes 0.8 H, Absolute Eosinophils 0.1, Absolute Basophils 0, PUBS MCHC 33.3 10/22/16 1140: APTT 79 H 10/22/16 0840: Anion Gap 9, Estimated GFR > 60, BUN/Creatinine Ratio 38.0 H, Troponin I 0.49 * H, CBC w Diff NO MAN DIFF REQ, RBC 4.80, MCV 86.5, MCH 28.2, RDW 14.2, MPV 8.5, Gran % 58.6, Lymphocytes % 25.2, Monocytes % 13.1 H, Eosinophils % 2.4, Basophils % 0.7, Absolute Granulocytes 4.1, Absolute Lymphocytes 1.8, Absolute Monocytes 0.9 H, Absolute Eosinophils 0.2, Absolute Basophils 0, PUBS MCHC 32.6 L 10/22/16 0020: APTT 40 H, D-Dimer 795 H Recent Imaging Studies: Echocardiogram (10/22/2016): Technically difficult study. Left ventricular cavity size normal. Normal left ventricular wall thickness. There is severe hypokinesis of the mid to distal anteroseptum, apex, and mid to distal lateral/inferolateral wall. This pattern could be consistent with Takatsubo's cardiomyopathy. Left ventricular ejection fraction is estimated at 25 %. Normal right ventricular size and function. Unable to estimate the right ventricular systolic pressure. No pericardial effusion. Assessment/Plan Assessment/Plan Mrs. Rao is an elderly female hypertension, meningioma, dementia, PSVT, conduction disease with IVCD who presented with a suspected TIA following vertebroplasty with a history of previous stroke, modest troponin elevation of uncertain etiology, and echocardiographic findings of possible stress-induced ( Takatsubo) cardiomyopathy. She is a limited historian, but continues to appear comfortable and hemodynamically stable with no malignant/potentially malignant arrhythmias on telemetry including paroxysmal atrial fibrillation. The plan will be to continue with conservative management. She'll be maintained on antiplatelet and statin therapy. Continue telemetry? Yes
[2016-10-24 00:30] VITALS: BP 118/72
[2016-10-24 08:13] VITALS: BP 110/68
--- NOTE | 2016-10-24 09:53 | PN- Housestaff ---
ARVIND BHAGAT,LUIS 10/24/16 0952: Subjective Follow-up For: Tako tsubo cardiomyopathy Left jaw deviation Complaints: no complaints Tele-Events Since Last Visit: Normal sinus rhythm, heart rate between 81-89, multiple triplets Subjective: Patient is seen and examined at the bedside. She denies of any pain. Review of Systems Constitutional: Denies: no symptoms. Comments: Cannot comment because of the patients clinical status. Objective Last 24 Hrs of Vital Signs/I&O Vital Signs Date Time Temp Pulse Resp B/P Pulse O2 O2 Flow FiO2 Ox Delivery Rate 10/24 1358 97 100/52 10/24 1348 97.3 88 14 110/68 04/ 0813 97.3 88 14 110/68 98 Room Air 10/24 0640 96 100/60 / 0030 97.9 85 20 118/72 99 Room Air Intake & Output 10/24 1600 / 0800 04/ 0000 Intake Total 300 50 50 Output Total 100 Balance 300 50 -50 Intake, Oral 300 50 50 Number 0 Bowel Movements Output, Urine 100 Physical Exam General Appearance: Alert, Cooperative, No Acute Distress Cardiovascular: Normal S1, Normal S2, murmur present Lungs: Clear to Auscultation, Normal Air Movement Extremities: No Clubbing, No Cyanosis, No Edema Current Medications: Current Medications Sig/Ulices Start time Last Medication Dose Route Stop Time Status Admin Aspirin 325 MG DAILY 10/21 1915 DCD 10/24 PO 0946 Atorvastatin Calcium 40 MG 1700 / 1700 DCD 04 PO 1831 Diltiazem HCl 60 MG Q8 10/21 1506 DCD 10/24 PO 1358 Magnesium Oxide 400 MG AT BEDTIME 10/200 DCD 04 PO 2230 Polyethylene Glycol 17 GM DAILY PRN 10/20 1800 DCD PO Quetiapine Fumarate 25 MG QAM 10/21 1000 DCD 10/24 PO 0947 Quetiapine Fumarate 50 MG QPM 10/20 2200 DCD 04/ PO 2200 Senna/Docusate Sodium 2 TAB AT BEDTIME 10/20 2200 DCD 04/08 PO 2230 Thyroid 15 MG DAILY AC 10/21 0700 DCD 04 PO 0604 Tiotropium [place] 1 PUF DAILY 10/21 1000 DCD 10/24 INH 0947 Tramadol HCl 50 MG Q4 HRS NEEDED PRN 10/20 1800 DCD PO Last 24 Hrs of Lab/Edward Results Last 24 Hrs of Labs/Mics: Laboratory Tests 10/24/16 0647: Anion Gap 8, Estimated GFR > 60, BUN/Creatinine Ratio 35.0 H, Magnesium 2.0 Assessment/Plan Assessment: Patient is a 85-year-old female with extensive PMH notable include Lyme disease, Stroke (2016), Meningioma, Atrial Fibrillaion (not on anticoagulation) came to the [facility] IR department post procedurally after undergoing vertebroplasty. She had left facial droop and very delirious. She received IV propofol and ketamine during the procedure. Plan Discharge today NSTEMI/Takotsubocardiomyopathy. * We will continue tablet Atorvastatin 40mg OD * ECHO shows Severe hypokinesis of mid to distal anteroseptum, apex, mid to distal lateral/inferolateral wall. LVEF 25%. * Patient's family want to have conservative approach. * We will continue tab aspirin 325mg PO OD * Advised to follow-up with a machine etcher as an outpatient Left jaw deviation Status Post Verterbroplasty * Possibly secondary to prone positioning on the table for long time during surgery. * Post operative pain need to be controlled * Jaw X ray if worsens. History of SVT * On diltiazem CD 180mg at home, started on cardizem 60mg Q8 as she is on pureed diet (need to be crushed). History of COPD * Continue nebulization as before, advised to follow-up with the meter shop superintendent as an outpatient Hypothyroidism * We'll continue tablet thyroid 15mg * TSH and free T4 are normal. Mental health * We will continue seroquel 25mg AM and 50mg PM CODE STATUS * DNR/DNI Problem List: 1. Takotsubo cardiomyopathy 2. NSTEMI (non-ST elevated myocardial infarction) Pain Ratin Pain Location: Not applicable Pain Goal: Remain pain free Pain Plan: [id number], avoid NSAIDs Tomorrow's Labs & Rationales: Not require as patient is discharged DVT/Prophylaxis: mechanical, pharmacological AIDA FISH MD 10/24/16 1417: Attending MD Review Statement Attending Statement Attending MD Statement: examined this patient, discuss w/resident/PA/SENIOR SUPPORT ANALYST, agreed w/resident/PA/SENIOR SUPPORT ANALYST, reviewed EMR data (avail) Attending Assessment/Plan: 85F PMH dementia, paroxysmal atrial fibrillation not on anti-coagulation, history of SVT, lumbar vertebral compression fracture s/p vertebroplasty on 10/20, admitted after procedure, found to have confusion and left facial droop. Concern was for acute CVA initially. Patient is at her baseline mental status, cooperative, alert, still confused ( though this is the same as her mental status during her previous admission). She does not have a facial droop at this time and cranial nerve and neuro exam is grossly normal. She reports her back pain is improved. EKG from 10/20 showed flattened anterior T-waves and increased troponin to peak of 1.58 in the setting of NSTEMI. She denies chest pain. Echocardiogram showed evidence of Takotsubo cardiomyopathy with EF 25%. Plan - Stable for discharge to [facility] - Follow cardiology recommendations - Favor conservative approach to NSTEMI, internal medicine nurse practitioner has discussed this with family who agree with plan - Continue ASA and statin - WIll continue Cardizem for history of SVT - CTA negative for PE - Continue home medications - Outpatient cardiology follow up
[2016-10-24 13:48] VITALS: BP 110/68
[2016-10-24 13:58] VITALS: BP 100/52
== END 2016-10-24 14:15 | DRG 982 ==
LOC: ENRESERVTM → ENRESERVDT → ERH 13:36 → 1NO 14:58 → ENPENDDIS 14:58 → ERHI 14:58 → 1NO 17:53
PROVIDERS: Emergency Medicine; Internal Medicine; ADMIT Internal Medicine
PROC: 0PU43JZ Supplement Thoracic Vertebra with Synthetic Substitute, Percutaneous Approach (ICD-10-PCS; principal; 2016-10-20)
PROC: 0PS43ZZ Reposition Thoracic Vertebra, Percutaneous Approach (ICD-10-PCS; principal; 2016-10-20)
DX: I21.4 Non-ST elevation (NSTEMI) myocardial infarction (principal); I47.1 Supraventricular tachycardia; I95.9 Hypotension, unspecified; I27.2 Other secondary pulmonary hypertension; J44.9 Chronic obstructive pulmonary disease, unspecified; F03.90 Unspecified dementia, unspecified severity, without behavioral disturbance, psychotic disturbance, mood disturbance, and anxiety; I44.7 Left bundle-branch block, unspecified; I51.81 Takotsubo syndrome; R29.810 Facial weakness; Z86.73 Personal history of transient ischemic attack (TIA), and cerebral infarction without residual deficits; I10 Essential (primary) hypertension; M79.7 Fibromyalgia; E03.9 Hypothyroidism, unspecified; F32.9 Major depressive disorder, single episode, unspecified; F41.9 Anxiety disorder, unspecified; Z66 Do not resuscitate; E78.5 Hyperlipidemia, unspecified
CPT/HCPCS: 04007; 1NSP; 70551; 36415; 82436; 93005; 93010; 93306; 97116-GO; 97161-GP; 97530-GO; J1644; J3010; J3490; J7042

== ENCOUNTER 2016-11-08 09:20 | Emergency (ER) | payer OTHER ==
[~2016-11-08] VITALS: Ht 154.9 cm; Wt 49.9 kg
[~2016-11-08 09:20] MED LIST changes: +ATORVASTATIN CA40 M1 PO
--- NOTE | 2016-11-08 09:32 | ED GENERAL ADULT ---
History of Present Illness General Chief Complaint: Lower Extremity Problems Stated Complaint: BIBA, PAIN BEHIND LEFT KNEE Source: patient, family Exam Limitations: patient's age, clinical condition, confusion, physical impairment Vital Signs & Intake/Output Vital Signs & Intake/Output Vital Signs Date Time Temp Pulse Resp B/P B/P Pulse O2 O2 Flow FiO2 Mean Ox Delivery Rate 11/08 1324 72 122/60 11/08 1123 98.0 88 18 124/62 97 Room Air 11/08 0925 97.6 90 20 126/58 96 Room Air Allergies Coded Allergies: duloxetine (From CYMBALTA) (Severe, RASH 10/15/15) Benzodiazepines (UNKNOWN PER PT 10/15/15) clarithromycin (From BIAXIN) (UNKNOWN PER PT 10/15/15) lisinopril (UNKNOWN PER PT 10/15/15) meperidine (From DEMEROL) (UNKNOWN PER PT 10/15/15) verapamil (UNKNOWN PER PT 10/15/15) Uncoded Allergies: OPIOD (Severe, N/V, DIZZINESS 10/15/15) "SEDATIVES" (UNKNOWN PER PT 10/15/15) Reconcile Medications Aspirin (Ecotrin*) 325 MG TABLET.DR 1 TAB PO DAILY heart health (Reported) Atorvastatin Calcium 40 MG TABLET 40 MG PO 1700 HLD Diltiazem HCl (Diltiazem 24HR Cd) 180 MG CAP.ER.24H 1 CAP PO DAILY HEART/BP ( Reported) Fluticasone Propionate (Flovent Hfa) 110 MCG/ACTUATION AER.W.ADAP 1 PUF INH ONCE EMPHYSEMA Magnesium Oxide 400 MG TABLET 1 TAB PO QHS SUPPLEMENT (Reported) Polyethylene Glycol 3350 (Miralax) 17 GM POWD.PACK 1 PAC PO DAILY PRN GI ( Reported) dissolve in water Quetiapine Fumarate (Seroquel) 25 MG TABLET 1 TAB PO QAM Hallucination/anxiety (Reported) Quetiapine Fumarate (Seroquel) 50 MG TABLET 1 TAB PO QPM Hallucination/anxiety (Reported) Sennosides/Docusate Sodium (Senna S Tablet) 1 EACH TABLET 2 TAB PO QHS GI ( Reported) Thyroid ([place] Thyroid) 15 MG TABLET 1 TAB PO DAILY THYROID (Reported) Tiotropium [place] (Spiriva) 18 MCG CAP.W.DEV 1 CAP INH DAILY LUNG HEALTH Tramadol HCl 50 MG TABLET 1 TAB PO Q4 HRS NEEDED PRN PAIN (Reported) Triage Note: PT [facility] FOR C/O PAIN BEHIND LEFT KNEE STARTED YESTERDAY. DENIES ANY INJURY PT STATES SHE IS UNABLE TO BEAR WEIGHT ON LEFT LEG. DR CALLAHAN AT BEDSIDE FOR EVAL. Triage Nurses Notes Reviewed? yes Onset: Abrupt Duration: hour(s): Timing: recent history Severity: moderate HPI: 11/08/16 9:32 AM This is an 85-year-old female presents to the emergency department complaining of left knee and calf pain. According to the patient's family she was in her usual state of health until yesterday when she was having difficulty bearing weight on the left leg. Today she continued to complain of severe pain to the posterior knee and to the posterior calf on the left. There was no fall. No history of trauma. The onset of the symptoms were abrupt, the duration was just today, the severity was significant; as her symptoms required to come to the emergency department for care. 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 She has a history of a pubic rami fracture on the left of August of this year, and was recently in short-term rehabilitation. She ambulates with a walker. Past History Travel History Traveled to [place] past 21 day No Medical History Any Pertinent Medical History? 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 Refer elsewhere in this and other documents for additional details. There is no other information in these categories that I am aware of and no additional information was provided by the patient on consultation evaluation today which is directly pertinent to the patient's orthopaedic consultation evaluation, assessment, recommendations or care. History of MRSA: No History of VRE: No History of CDIFF: No Surgical History Surgical History: appendectomy, hysterectomy, TONSILLECTOMY X 2 Psychosocial History Who do you live with Other (see notes) Services at Home None What is your primary language Japanese Tobacco Use: Never used ETOH Use: denies use Illicit Drug Use: denies illicit drug use Family History Family History, If Any: FATHER (dementia). Relation not specified for: FH: bladder cancer FH: breast cancer Hx Contributory? No Review of Systems Review of Systems Constitutional: Denies: fever. EENTM: Reports: no symptoms. Respiratory: Denies: short of breath. Cardiovascular: Denies: chest pain. GI: Denies: abdominal pain. Genitourinary: Reports: no symptoms. Musculoskeletal: Reports: see HPI, muscle pain. Skin: Denies: rash. Neurological/Psychological: Reports: confusion. Hematologic/Endocrine: Denies: bruising, bleeding. Physical Exam Physical Exam General Appearance: well developed/nourished, alert, awake, anxious, mild distress Head: atraumatic, normal appearance Eyes: Bilateral: normal appearance, PERRL, EOMI. Ears, Nose, Throat: normal pharynx, normal ENT inspection Neck: normal inspection, supple Respiratory: chest non-tender, no respiratory distress Cardiovascular: irregularly irregular Peripheral Pulses: 4+ radial (R), 4+ radial (L) Gastrointestinal: soft, non-tender Back: decreased range of motion Extremities: no edema, calf tenderness, tenderness (behind the left knee), she has no tenderness to the left Hemipelvis Neurologic/Psych: no motor/sensory deficits, awake, alert Skin: intact, normal color, warm/dry Core Measures ACS in differential dx? No CVA/TIA Diagnosis: No Severe Sepsis Present: No Septic Shock Present: No Progress Differential Diagnoses I considered the following diagnoses in my evaluation of the patient: [DVT, fracture, effusion] Plan of Care: The patient will follow-up with orthopedics this week. Continue to ambulate as tolerated with her walker. Tylenol as needed for pain. Initial ED EKG: none Departure Departure Disposition: HOME OR SELF CARE Condition: Stable Clinical Impression Primary Impression: Pubic ramus fracture Secondary Impressions: Arthritis Referrals: ARTHUR BHAGAT,ANALIA Marshall (PCP/Family) Departure Forms: Customer Survey General Discharge Information Comments 11/08/16 1:16 PM The patient was treated with by mouth Tylenol. The patient was able to ambulate unassisted with a walker and went up and down the emergency department without difficulty. She'll follow-up with orthopedics this week. Return to the emergency department if symptoms recur. Ultrasound of the left leg was negative for DVT X-ray results revealed no new fracture-callous formation and displacement was noted of the known left pubic rami fracture. PATIENT: HENNA GONZALEZ PRESENT AGE: 85 PATIENT ACCOUNT NO: [id number] : 29 LOCATION: ER ORDERING PHYSICIAN: HAY CALLAHAN DO SERVICE DATE: 11/08/16 EXAM TYPE: RAD - XRY-HIP 2-3 VIEWS, LEFT; XRY-KNEE, LEFT EXAMINATION: XR HIP, LEFT XR KNEE, LEFT CLINICAL INFORMATION: 85-year-old female presented with left hip and knee pain. Suspected fracture. COMPARISON: Pelvic radiograph done on 08/25/2016. TECHNIQUE: 2 views of the left hip. Single frontal view of the pelvis and 4 views of the left knee. FINDINGS: PELVIS AND LEFT HIP: Compared to prior pelvic radiograph done on 08/25/2016, interval development of large callus formation is noted at the site of prior superior pubic ramus fracture involving the region of the left-sided symphysis pubis. Superior pubic ramus is superiorly displaced likely secondary to large exuberant callus formation at the site of prior fracture, new since prior radiograph dated 08/25/2016. Persistent stable marked diffuse osteopenia is noted. Radiographs of the left hip show satisfactory bony alignment and intact cortices. The soft tissues are unremarkable. LEFT KNEE: Marked diffuse osteopenia is noted. The bony alignment is intact. The cortices are intact. There is no joint effusion present. There is no radiographic evidence of any displaced fracture identified. Because of the presence of marked diffuse osteopenia, subtle nondisplaced fracture as you know can be missed. If the patient remains symptomatic, follow-up repeat radiograph should be considered for further clarification. IMPRESSION: 1. Marked diffuse osteopenia involving all the visualized bones. 2. Large exuberant callus formation is noted along the left-sided symphysis pubis at the site of prior superior pubic ramus fracture showing new superior displacement of the left pubic ramus, as compared to prior radiograph dated 08/25/2016. 3. No radiographic evidence of any displaced fracture and/or dislocation is seen at the left hip and left knee. 4. Since subtle nondisplaced fracture can be missed in the background of marked diffuse osteopenia, follow-up radiographs of the left hip and left knee as appropriate may be considered if the patient remains symptomatic. DICTATED BY: JESS ARAUZ MD DATE/TIME DICTATED:11/08/161099 CROP OR GRAIN FARMWORKER:PETER DATE/TIME TRANSCRIBED:11/08/161099 CONFIDENTIAL, DO NOT COPY WITHOUT APPROPRIATE AUTHORIZATION. <Electronically signed in Other Vendor System> SIGNED BY: JESS ARAUZ MD 11/08/16 1128 Critical Care Note Critical Care Note Critical Care Time: non-applicable
--- NOTE | 2016-11-08 11:24 | ULTRASOUND REPORT ---
EXAMINATION: LEFT LOWER EXTREMITY DOPPLER VENOUS ULTRASOUND CLINICAL INFORMATION: Left calf pain. Rule out DVT. COMPARISON: None. TECHNIQUE: Doppler spectral analysis and color flow Doppler imaging was performed of the left lower extremity. Compression and augmentation maneuvers were performed. FINDINGS: The common femoral, profunda femoral, superficial femoral, greater saphenous, popliteal, and proximal calf veins were well-identified and normal. The veins demonstrate normal compressibility and color fill-in. No Borrego's cyst is identified. IMPRESSION: No evidence for left lower extremity deep vein thrombosis.
--- NOTE | 2016-11-08 11:28 | RADIOLOGY REPORT ---
EXAMINATION: XR HIP, LEFT XR KNEE, LEFT CLINICAL INFORMATION: 85-year-old female presented with left hip and knee pain. Suspected fracture. COMPARISON: Pelvic radiograph done on 08/25/2016. TECHNIQUE: 2 views of the left hip. Single frontal view of the pelvis and 4 views of the left knee. FINDINGS: PELVIS AND LEFT HIP: Compared to prior pelvic radiograph done on 08/25/2016, interval development of large callus formation is noted at the site of prior superior pubic ramus fracture involving the region of the left-sided symphysis pubis. Superior pubic ramus is superiorly displaced likely secondary to large exuberant callus formation at the site of prior fracture, new since prior radiograph dated 08/25/2016. Persistent stable marked diffuse osteopenia is noted. Radiographs of the left hip show satisfactory bony alignment and intact cortices. The soft tissues are unremarkable. LEFT KNEE: Marked diffuse osteopenia is noted. The bony alignment is intact. The cortices are intact. There is no joint effusion present. There is no radiographic evidence of any displaced fracture identified. Because of the presence of marked diffuse osteopenia, subtle nondisplaced fracture as you know can be missed. If the patient remains symptomatic, follow-up repeat radiograph should be considered for further clarification. IMPRESSION: 1. Marked diffuse osteopenia involving all the visualized bones. 2. Large exuberant callus formation is noted along the left-sided symphysis pubis at the site of prior superior pubic ramus fracture showing new superior displacement of the left pubic ramus, as compared to prior radiograph dated 08/25/2016. 3. No radiographic evidence of any displaced fracture and/or dislocation is seen at the left hip and left knee. 4. Since subtle nondisplaced fracture can be missed in the background of marked diffuse osteopenia, follow-up radiographs of the left hip and left knee as appropriate may be considered if the patient remains symptomatic.
[2016-11-08 13:24] VITALS: BP 122/60
== END 2016-11-08 13:25 ==
LOC: ERH 09:20
DX: M17.9 Osteoarthritis of knee, unspecified (principal)
CPT/HCPCS: 73502-LT; 73560-LT

== ENCOUNTER 2016-11-11 15:06 | Emergency (ER) | payer OTHER ==
[~2016-11-11] VITALS: Ht 154.9 cm; Wt 49.9 kg
--- NOTE | 2016-11-11 15:36 | ED NECK/BACK PAIN COMPLAINT ---
History of Present Illness General Chief Complaint: Low Back Pain/Injury Stated Complaint: BIBA, BACK PAIN Source: patient Exam Limitations: no limitations Allergies Coded Allergies: duloxetine (From CYMBALTA) (Severe, RASH 10/15/15) NIKKO Inhibitors (PER MAR REACTION NOT LISTED 11/11/16) Benzodiazepines (UNKNOWN PER PT 10/15/15) Opioids - Morphine Analogues (NAUSEA, DIZZINESS 11/11/16) Opioids-Meperidine and Related (NAUSEA, DIZZINESS 11/11/16) Opioids-Methadone and Related (NAUSEA, DIZZINESS 11/11/16) clarithromycin (From BIAXIN) (UNKNOWN PER PT 10/15/15) lisinopril (UNKNOWN PER PT 10/15/15) meperidine (From DEMEROL) (UNKNOWN PER PT 10/15/15) verapamil (UNKNOWN PER PT 10/15/15) Uncoded Allergies: "SEDATIVES" (UNKNOWN PER PT 10/15/15) Reconcile Medications Aspirin (Ecotrin*) 325 MG TABLET.DR 1 TAB PO DAILY heart health (Reported) Atorvastatin Calcium 40 MG TABLET 40 MG PO 1700 HLD Diltiazem HCl (Diltiazem 24HR Cd) 180 MG CAP.ER.24H 1 CAP PO DAILY HEART/BP ( Reported) Fluticasone Propionate (Flovent Diskus) 100 MCG BLST.W.DEV 1 PUF INH DAILY EMPHYSEMA (Reported) Magnesium Oxide 400 MG TABLET 1 TAB PO QHS SUPPLEMENT (Reported) Polyethylene Glycol 3350 (Miralax) 17 GM POWD.PACK 1 PAC PO DAILY PRN GI ( Reported) dissolve in water Quetiapine Fumarate (Seroquel) 25 MG TABLET 1 TAB PO QAM Hallucination/anxiety (Reported) Quetiapine Fumarate (Seroquel) 50 MG TABLET 1 TAB PO QPM Hallucination/anxiety (Reported) Sennosides/Docusate Sodium (Senna S Tablet) 1 EACH TABLET 2 TAB PO QHS GI ( Reported) Thyroid ([place] Thyroid) 15 MG TABLET 1 TAB PO DAILY THYROID (Reported) Tiotropium [place] (Spiriva) 18 MCG CAP.W.DEV 1 CAP INH DAILY LUNG HEALTH Tramadol HCl 50 MG TABLET 1 TAB PO Q4 HRS NEEDED PRN PAIN (Reported) Triage Note: BIBA FOR ?BACK PAIN. PER EMS, NURSE AT [facility] ACTIVATED EMS BECAUSE SHE THOUGHT PT WAS IN PAIN. UPON ARRIVAL PT STATES SHE DOES NOT KNOW WHY SHE IS AT ED. 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 HX FRACTURES Triage Nurses Notes Reviewed? yes HPI: Patient presents for evaluation of low back pain. The patient herself was initially unsure why she was sent to the emergency department but seems to indicate she is having a low back pain. History is very limited as the patient is a poor historian and often seems rather distracted while answering questions. Her answers tend to trail off as well. Patient's pain apparently worsens with movement. (MAIA BHAGAT,HAY Alva) Vital Signs & Intake/Output Vital Signs & Intake/Output Vital Signs Date Time Temp Pulse Resp B/P B/P Pulse O2 O2 Flow FiO2 Mean Ox Delivery Rate 11/12 1344 72 18 166/70 96 Room Air 11/12 1146 71 18 151/66 96 Room Air 11/12 1050 Room Air Room Air 11/12 0802 97.6 68 18 133/60 95 Room Air 11/11 2235 97.1 67 18 128/80 97 Room Air Room Air 11/11 1925 97.0 70 16 132/84 94 Room Air 11/11 1730 97.2 68 17 130/78 95 Room Air ED Intake and Output 11/12 0000 11/11 1200 Intake Total 0 Output Total Balance 0 Intake, Oral 0 Patient 110 lb Weight Weight Estimated Measurement Method Past History Travel History Traveled to [place] past 21 day No Medical History Any Pertinent Medical History? 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 Refer elsewhere in this and other documents for additional details. There is no other information in these categories that I am aware of and no additional information was provided by the patient on consultation evaluation today which is directly pertinent to the patient's orthopaedic consultation evaluation, assessment, recommendations or care. History of MRSA: No History of VRE: No History of CDIFF: No Surgical History Surgical History: appendectomy, hysterectomy, TONSILLECTOMY X 2 Psychosocial History Who do you live with Other (see notes) Services at Home None What is your primary language Swiss Tobacco Use: Never used Family History Family History, If Any: FATHER (dementia). Relation not specified for: FH: bladder cancer FH: breast cancer Hx Contributory? No (MAIA BHAGAT,HAY Alva) Review of Systems Review of Systems Constitutional: Reports: no symptoms. Eyes: Reports: no symptoms. Ears, Nose, Throat, Mouth: Reports: no symptoms. Respiratory: Reports: no symptoms. Cardiovascular: Reports: no symptoms. Gastrointestinal/Abdominal: Reports: no symptoms. Musculoskeletal: Reports: see HPI. Skin: Reports: no symptoms. Neurological/Psychological: Reports: no symptoms. All Other Systems: Reviewed and Negative (MAIA BHAGAT,HAY Alva) Physical Exam Physical Exam Neck: see below Comments: Physical examination Limited by patient's inconsistent attention and question answering Gen.: Well-nourished, well-developed, no acute respiratory distress. Head: Normocephalic, atraumatic. Eyes: Normal inspection bilaterally Ears: Normal inspection bilaterally Nose: Normal inspection Throat/mouth : Moist mucosa Neck: Supple, full range of motion, no goiter Heart: Regular rate and rhythm, no murmurs rubs or gallops Lungs: Clear to auscultation bilaterally with normal air entry Chest: Nontender Back: Normal range of motion with discomfort, tenderness over the lumbosacral spine and bilateral paraspinal musculature. Abdomen: Soft, nontender, nondistended, normal bowel sounds Extremities: Normal range of motion grossly, equal radial pulses, no cyanosis clubbing or edema, no apparent straight leg raise sign, normal femoral pulses bilaterally. Neurologic: Cranial nerves grossly intact, speech is clear Skin: warm and dry Psychiatric: Calm, cooperative, no apparent delusions or hallucinations (MAIA BHAGAT,HAY Alva) Progress Differential Diagnosis: cauda equina syn, herniated disc, myofascial strain Diagnostic Imaging: Discussed w/RAD: Radiology Read. Radiology Impression: PATIENT: HENNA GONZALEZ PRESENT AGE: 85 PATIENT ACCOUNT NO: [id number] : 29 LOCATION: [facility] ORDERING PHYSICIAN: HAY CARVALHO MD SERVICE DATE: 11/11/16 EXAM TYPE: RAD - XRY-LUMBOSACRAL SPINE AP & LAT EXAMINATION: XR LUMBOSACRAL SPINE CLINICAL INFORMATION: Severe low back pain. Presumptive diagnosis: Compression fracture. COMPARISON: CT of the lumbar spine 10/14/2016. TECHNIQUE: AP and lateral views of the lumbosacral spine were obtained. FINDINGS: There is diffuse osteopenia. There is a stable left convex lumbar scoliosis. The previously noted T12 compression fracture has been treated with vertebral augmentation. There is probable worsening mild superior endplate depression of the L1 vertebral body. The Schmorl's node involving the inferior endplate of the L3 vertebral body is much better evaluated on the CT scan. There are stable moderate degenerative disc disease at L4-L5. IMPRESSION: 1. Status post vertebral augmentation of the T12 vertebral body. 2. Worsening mild superior endplate depression of the L1 vertebral body. DICTATED BY: RADHA IGLESIAS MD DATE/TIME DICTATED:11/11/161633 SELVAGE MACHINE OPERATOR:PETER DATE/TIME TRANSCRIBED:11/11/161633 CONFIDENTIAL, DO NOT COPY WITHOUT APPROPRIATE AUTHORIZATION. <Electronically signed in Other Vendor System> SIGNED BY: RADHA IGLESIAS MD 11/11/161648 , PATIENT: HENNA GONZALEZ PRESENT AGE: 85 PATIENT ACCOUNT NO: [id number] : 29 LOCATION: [facility] ORDERING PHYSICIAN: HAY CARVALHO MD SERVICE DATE: 11/11/16160 EXAM TYPE: US - US-AORTA EXAMINATION: US RETROPERITONEAL LIMITED (AORTA) CLINICAL INFORMATION: Severe low back pain. Presumptive diagnosis: Aortic aneurysm/dissection.. COMPARISON: None TECHNIQUE: Grayscale, color Doppler and spectral Doppler evaluation of the abdominal aorta. FINDINGS: The aorta is difficult to visualize. The patient was not coherent and there is also lots of bowel gas obscuring visualization. The exam is extremely limited. Only the proximal and mid abdominal aorta are identified, measuring 1.2 and 1.1 cm in maximum diameter. There is no aneurysm in these areas. IMPRESSION: Extremely limited exam. No evidence of abdominal aortic aneurysm in the mid to upper abdominal aorta. The distal abdominal aorta is not visualized. In addition , ultrasound cannot exclude dissection. Consider CT scanning. DICTATED BY: RADHA IGLESIAS MD DATE/TIME DICTATED:11/11/161657 SELVAGE MACHINE OPERATOR:WALKER DATE/TIME TRANSCRIBED:04/27/17 / 1658 CONFIDENTIAL, DO NOT COPY WITHOUT APPROPRIATE AUTHORIZATION. <Electronically signed in Other Vendor System> SIGNED BY: RADHA IGLESIAS MD 11/11/16 1707 Comments: Review of patient's past medical history reveals multiple diagnostic imaging studies including a CTA chest to rule out pulmonary embolism in October of this year, an MRI of the head and thoracic spine in October and September respectively, CT of the lumbar spine October 14 and a vertebroplasty in October. 18:00 pt and son updated. given the eval and clear worsening of pts back pain with movement, i feel her pain is musculoskeletal. she is unsteady on her feet secondary to severe back pain, despite vicodin. 11/11/2016 7:12:42 PM patient signed out to Dr. 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 11/12/2016 3:22:46 PM patient signed out to me by Dr. Patton at shift exchange mechanic. The patient will be transferred to [facility] (MAIA BHAGAT,HAY Alva) Plan of Care: Orders Procedure Date/time Status Regular Diet 11/12 B Active Theraputic Activities 15 Min 11/12 UNK Complete Gait Training, 15 Min 11/12 UNK Complete PT EVAL LOW COMPLEX 20 MIN 11/12 UNK Complete PT Evaluate & Treat 11/11 2049 Active URINALYSIS 11/11 1809 Complete CBC WITHOUT DIFFERENTIAL 11/11 1809 Complete BASIC METABOLIC PANEL 11/11 1809 Complete CASE MANAGEMENT CONSULT 11/11 1809 Active Current Medications Sig/Ulices Start time Last Medication Dose Stop Time Status Admin Acetaminophen/ 1 TAB Q6P PRN 11/12 0845 AC 11/12 Hydrocodone Bitart 0844 (Vicodin) Laboratory Tests 11/11/162229: Urinalysis MANY H, Urine Color YEL, Urine Clarity HAZY H, Urine pH 7.5, Ur Specific [place] 1.015, Urine Protein TRACE H, Urine Ketones NEG, Urine Nitrite NEG, Urine Bilirubin NEG, Urine Urobilinogen 0.2, Ur Leukocyte Esterase NEG, Ur Microscopic SEDIMENT EXAMINED, Urine RBC 1-3, Urine WBC RARE, Ur Epithelial Cells RARE, Urine Bacteria RARE H, Urine Mucus FEW, Urine Hemoglobin TRACE- INTACT, Urine Glucose NEG 11/11/161818: Anion Gap 13, Estimated GFR > 60, BUN/Creatinine Ratio 22.0, Glucose 96, Calcium 8.9, CBC w Diff NO MAN DIFF REQ, RBC 4.25, MCV 84.5, MCH 28.3, RDW 15.1 H, MPV 8.5, Gran % 63.0, Lymphocytes % 18.4 L, Monocytes % 15.3 H, Eosinophils % 2.6, Basophils % 0.7, Absolute Granulocytes 5.2, Absolute Lymphocytes 1.5, Absolute Monocytes 1.3 H, Absolute Eosinophils 0.2, Absolute Basophils 0.1, PUBS MCHC 33.5 Hand-Off Endorsed To: MAIA BHAGAT,HAY Alva Endorsed Time: 0700 Pending: consult, other Comments: PT and Case management for [facility]. (SINGH BHAGAT,RAFAT) Departure Departure Disposition: ACUTE REHAB FACILITY Condition: Stable Clinical Impression Primary Impression: Back pain Qualifiers: Back pain location: low back pain Chronicity: unspecified Back pain laterality: bilateral Sciatica presence: without sciatica Qualified Code: M54.5 - Low back pain Secondary Impressions: Compression fracture of lumbar vertebra Qualifiers: Encounter type: initial encounter Fracture type: closed Qualified Code: S32.000A - Wedge compression fracture of unspecified lumbar vertebra, initial encounter for closed fracture Gait instability Referrals: ARTHUR BHAGAT,ANALIA Marshall Departure Forms: Customer Survey General Discharge Information (MAIA BHAGAT,HAY Alva)
--- NOTE | 2016-11-11 16:49 | RADIOLOGY REPORT ---
EXAMINATION: XR LUMBOSACRAL SPINE CLINICAL INFORMATION: Severe low back pain. Presumptive diagnosis: Compression fracture. COMPARISON: CT of the lumbar spine 10/14/2016. TECHNIQUE: AP and lateral views of the lumbosacral spine were obtained. FINDINGS: There is diffuse osteopenia. There is a stable left convex lumbar scoliosis. The previously noted T12 compression fracture has been treated with vertebral augmentation. There is probable worsening mild superior endplate depression of the L1 vertebral body. The Schmorl's node involving the inferior endplate of the L3 vertebral body is much better evaluated on the CT scan. There are stable moderate degenerative disc disease at L4-L5. IMPRESSION: 1. Status post vertebral augmentation of the T12 vertebral body. 2. Worsening mild superior endplate depression of the L1 vertebral body.
--- NOTE | 2016-11-11 17:05 | ULTRASOUND REPORT ---
EXAMINATION: US RETROPERITONEAL LIMITED (AORTA) CLINICAL INFORMATION: Severe low back pain. Presumptive diagnosis: Aortic aneurysm/dissection.. COMPARISON: None TECHNIQUE: Grayscale, color Doppler and spectral Doppler evaluation of the abdominal aorta. FINDINGS: The aorta is difficult to visualize. The patient was not coherent and there is also lots of bowel gas obscuring visualization. The exam is extremely limited. Only the proximal and mid abdominal aorta are identified, measuring 1.2 and 1.1 cm in maximum diameter. There is no aneurysm in these areas. IMPRESSION: Extremely limited exam. No evidence of abdominal aortic aneurysm in the mid to upper abdominal aorta. The distal abdominal aorta is not visualized. In addition, ultrasound cannot exclude dissection. Consider CT scanning.
[2016-11-11] MEDS ORDERED: FLOVENT DISKU100 MCG INH (17:18)
[2016-11-11 18:27] LABS: ABSOLUTE BASOPHIL COUNT 0.1 /CUMM (0.0-0.2); ABSOLUTE EOSINOPHIL COUNT 0.2 /CUMM (0.0-0.7); ABSOLUTE GRANULOCYTE CT 5.2 /CUMM (1.4-6.5); ABSOLUTE LYMPH COUNT 1.5 /CUMM (1.2-3.4); ABSOLUTE MONOCYTE COUNT 1.3 /CUMM (0.10-0.60); BASOPHIL % 0.7 % (0.0-2.0); EOSINOPHIL % 2.6 % (0-5); HEMATOCRIT 35.9 % (37-47); MEAN CORPUSCULAR HGB 28.3 PG (27.0-31.0); MEAN CORPUSCULAR HGB CONC 33.5 G/DL (33.0-37.0); MEAN CORPUSCULAR VOLUME 84.5 FL (81.0-99.0); MEAN PLATELET VOLUME 8.5 FL (7.4-10.4); PLATELET COUNT 233 /CUMM (130-400); RBC DISTRIBUTION WIDTH 15.1 % (11.5-14.5); RED BLOOD CELL CT 4.25 /CUMM (4.20-5.40); WHITE BLOOD CELL COUNT 8.3 /CUMM (4.8-10.8)
--- NOTE | 2016-11-11 19:32 | CT SCAN REPORT ---
EXAMINATION: CT HEAD WITHOUT CONTRAST CLINICAL INFORMATION: Dysarthria. COMPARISON: 10/20/2016. TECHNIQUE: Contiguous axial imaging was performed from the skull base to vertex without intravenous administration of contrast. DLP: 601 mGy-cm FINDINGS: There is no evidence of acute intracranial hemorrhage or territorial infarction. No abnormal mass effect or midline shift is seen. Vega to white matter differentiation is well preserved. No extra-axial fluid collections are identified. Their is diffuse underlying atrophy again noted. There is mild periventricular decrease in attenuation the deep white matter tracts with an associated focus of decreased attenuation extending into the or superficial white matter of the left frontal lobe involving the adjacent caudate unchanged. 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 The osseous structures and soft tissues are normal. The mastoid air cells and visualized portions of the paranasal sinuses are well aerated. IMPRESSION: No acute intracranial pathology.
[2016-11-12 16:04] VITALS: BP 146/84
== END 2016-11-12 16:04 ==
LOC: ERH 15:06
PROVIDERS: Emergency Medicine
DX: S32.019A Unspecified fracture of first lumbar vertebra, initial encounter for closed fracture (principal); X58.XXXA Exposure to other specified factors, initial encounter; Y92.9 Unspecified place or not applicable; Y93.9 Activity, unspecified
CPT/HCPCS: 72100; 76770; 81001; 97116-GP; 97161-GP; 97530-GP